=== PATIENT | female | born 1965 | race Caucasian/White ===

== ENCOUNTER → 2016-05-20 | Outpatient (CLI) | payer OTHER ==
[~2016-05-20] MED LIST: /PANT40TA OR; /SUCR1TA OR; ALEV220C2 PO; ALEV220T26 PO; ALLE25CA PO; AMIT10TA2 PO; BENA25CA2 PO; D31000TA PO; HYDR-3713 PO; LISI10TA4 PO; LISI5TAB PO; METO5TAB2 OR; MOBI15TA PO; NAPR250T; POTA99TA PO; ROBA750T4 PO; TIZA4CAP3 PO; VICODINES TAB OR; VITA30004 PO; ZESTRIL PO; mobic PO
--- NOTE | 2016-05-20 13:13 | REP ---
THORACIC SPINE: AP and lateral views of the thoracis spine performed. There is no compression fracture. There is normal thoracic kyphosis. There is mild diffuse spurring and disc space narrowing with subchondral sclerosis. Metallic screws are seen at the L3 level. There is mild curvature toward the right. Metallic plate and screws are seen in the lower cervical spine. IMPRESSION: Diffuse degenerative changes without fracture or dislocation. Signed by Mehdi Ochoa MD 05/20/2016 08:00 P
== END ==
LOC: M WUC 12:14
PROVIDERS: ATTEND Physician Assistant
DX: M51.36 Other intervertebral disc degeneration, lumbar region (principal)

== ENCOUNTER → 2016-06-05 | Outpatient (REF) | payer OTHER ==
[2016-06-05 12:29] LABS: BASO % 0.4 % (0.0-1.0); EOS # 0.1 K/mm3 (0.0-0.50); EOS % 1.6 % (0.0-3.0); LARGE UNSTAINED CELL # 0.1 K/mm3 (0.0-0.4); LARGE UNSTAINED CELL % 1.2 % (0.0-4.0); LYMPH % 21.4 % (24.0-44.0); MEAN CORPUSCULAR HEMOGLOBIN 28.5 pg (27.0-33.0); MEAN CORPUSCULAR HGB CONC 33.7 g/dl (32.0-36.5); MEAN CORPUSCULAR VOLUME 84.5 fl (80.0-96.0); MONO # 0.2 K/mm3 (0.0-0.8); MONO % 4.1 % (0.0-5.0); NEUTROPHILS # 3.4 K/mm3 (1.8-7.7); NEUTROPHILS % 71.3 % (36.0-66.0); PLATELET COUNT, AUTOMATED 221 k/mm3 (150-450); RED CELL DISTRIBUTION WIDTH 13.1 % (11.5-14.5); WHITE BLOOD COUNT 4.8 K/mm3 (4.0-10.0)
[2016-06-05 12:47] LABS: ALBUMIN 3.8 GM/DL (3.2-5.2); ALBUMIN/GLOBULIN RATIO 1.23 (1.00-1.93); ALKALINE PHOSPHATASE 153 U/L (45-117); ALT/SGPT 47 U/L (12-78); ANION GAP 10 MEQ/L (8-16); AST/SGOT 28 U/L (15-37); BILIRUBIN,TOTAL 0.6 MG/DL (0.2-1.0); BLOOD UREA NITROGEN 18 MG/DL (7-18); CARBON DIOXIDE LEVEL 25 MEQ/L (21-32); CHLORIDE LEVEL 108 MEQ/L (98-107); CREATININE FOR GFR 0.77 MG/DL (0.55-1.02); FERRITIN 55 NG/ML (8-252); GLOMERULAR FILTRATION RATE > 60.0 (>51); GLUCOSE, FASTING 86 MG/DL (70-105); PERCENT SATURATION 19.9 % (13.2-37.4); POTASSIUM SERUM 4.2 MEQ/L (3.5-5.1); SODIUM LEVEL 143 MEQ/L (136-145); TOTAL IRON BINDING CAPACITY 372 UG/DL (250-450); TOTAL PROTEIN 6.9 GM/DL (6.4-8.2)
[2016-06-05 13:12] LABS: VITAMIN B12 LEVEL 1450 PG/ML (247-911)
== END ==
LOC: M LABDRAW1 11:34
PROVIDERS: ATTEND Family Medicine
DX: E53.8 Deficiency of other specified B group vitamins (principal); E55.9 Vitamin D deficiency, unspecified

== ENCOUNTER → 2016-10-24 | Outpatient (REF) | payer OTHER ==
[2016-10-24 11:45] LABS: ALBUMIN 3.7 GM/DL (3.2-5.2); ALBUMIN/GLOBULIN RATIO 1.32 (1.00-1.93); ALKALINE PHOSPHATASE 114 U/L (45-117); ALT/SGPT 39 U/L (12-78); ANION GAP 8 MEQ/L (8-16); AST/SGOT 23 U/L (15-37); BILIRUBIN,TOTAL 0.5 MG/DL (0.2-1.0); BLOOD UREA NITROGEN 17 MG/DL (7-18); CARBON DIOXIDE LEVEL 24 MEQ/L (21-32); CHLORIDE LEVEL 112 MEQ/L (98-107); CHOLESTEROL LEVEL 223 MG/DL (<200); CREATININE FOR GFR 0.72 MG/DL (0.55-1.02); FREE T4 1.17 NG/DL (0.76-1.46); GAMMA GLUTAMYLTRANSPEPTIDASE 89 U/L (5-55); GLOMERULAR FILTRATION RATE > 60.0 (>51); GLUCOSE, FASTING 80 MG/DL (70-105); SODIUM LEVEL 144 MEQ/L (136-145); TOTAL PROTEIN 6.5 GM/DL (6.4-8.2); TRIGLYCERIDES LEVEL 79 MG/DL (<150)
== END ==
LOC: M SFHCPLAZ 09:37
PROVIDERS: ATTEND Family Medicine
DX: E78.2 Mixed hyperlipidemia (principal); I10 Essential (primary) hypertension

== ENCOUNTER → 2016-11-01 | Outpatient (CLI) | payer OTHER ==
--- NOTE | 2016-11-01 15:13 | REPMRS ---
Patient History The patient states she has not had a clinical breast exam in over a year. Patient is postmenopausal. No known family history of cancer. Digital Woman Screen Mammo: November 01, 2016 - Exam #: [id number] Bilateral CC and MLO view(s) were taken. Technologist: Cheyenne Reno, Technologist Prior study comparison: September 24, 2015, digital woman screen mammo performed at [facility]. May 06, 2014, digital woman screen mammo performed at [facility]. FINDINGS: There are scattered fibroglandular densities. There has been no change in the appearance of the mammogram from the prior studies. There is a mild amount of residual fibroglandular tissue which is fairly symmetric. There is no interval development of dominant mass, architectural distortion, or clustered microcalcification suggestive of malignancy. ASSESSMENT: BI-RADS/ACR category 1 mammogram. Negative. Recommendation Routine screening mammogram in 1 year (for women over age 40). This mammogram was interpreted with the aid of an FDA-approved computer-aided dectection system. Electronically Signed By: Mehdi Ochoa MD 11/01/16 0183
== END ==
LOC: M WHC 12:51
PROVIDERS: ATTEND Family Medicine
DX: Z12.31 Encounter for screening mammogram for malignant neoplasm of breast (principal); Z78.0 Asymptomatic menopausal state

== ENCOUNTER → 2017-02-22 | Outpatient (REF) | payer OTHER ==
[2017-02-22 12:39] LABS: BASO % 0.4 % (0.0-1.0); EOS % 0.6 % (0.0-3.0); IMMATURE GRANULOCYTE % 0.3 % (0-0); LYMPH # 1.3 10^3/uL (1.5-4.5); LYMPH % 18.5 % (24.0-44.0); MEAN CORPUSCULAR HEMOGLOBIN 28.7 pg (27.0-33.0); MEAN CORPUSCULAR HGB CONC 33.1 g/dl (32.0-36.5); MEAN CORPUSCULAR VOLUME 86.7 fl (80.0-96.0); MONO # 0.4 10^3/uL (0.0-0.8); MONO % 5.4 % (0.0-5.0); NEUTROPHILS # 5.2 10^3/uL (1.8-7.7); NEUTROPHILS % 74.8 % (36.0-66.0); PLATELET COUNT, AUTOMATED 233 10^3/uL (150-450); RED CELL DISTRIBUTION WIDTH 12.8 % (11.5-14.5)
[2017-02-22 13:05] LABS: ALBUMIN/GLOBULIN RATIO 1.38 (1.00-1.93); ALKALINE PHOSPHATASE 123 U/L (45-117); ALT/SGPT 47 U/L (12-78); ANION GAP 10 MEQ/L (8-16); AST/SGOT 20 U/L (7-37); BILIRUBIN,TOTAL 0.6 MG/DL (0.2-1.0); BLOOD UREA NITROGEN 15 MG/DL (7-18); CALCIUM LEVEL 9.1 MG/DL (8.5-10.1); CARBON DIOXIDE LEVEL 22 MEQ/L (21-32); CHLORIDE LEVEL 112 MEQ/L (98-107); CREATININE FOR GFR 0.87 MG/DL (0.55-1.02); FERRITIN 57 NG/ML (8-252); GLOMERULAR FILTRATION RATE > 60.0 (>51); GLUCOSE, FASTING 95 MG/DL (70-105); MAGNESIUM LEVEL 2.1 MG/DL (1.8-2.4); PERCENT SATURATION 20.3 % (13.2-45.0); POTASSIUM SERUM 3.9 MEQ/L (3.5-5.1); SODIUM LEVEL 144 MEQ/L (136-145); TOTAL IRON BINDING CAPACITY 344 UG/DL (250-450); TOTAL PROTEIN 6.9 GM/DL (6.4-8.2)
== END ==
LOC: M SFHCPLAZ 08:53
PROVIDERS: ATTEND Family Medicine
DX: E53.8 Deficiency of other specified B group vitamins (principal); I10 Essential (primary) hypertension; E78.2 Mixed hyperlipidemia

== ENCOUNTER → 2017-06-05 | Outpatient (CLI) | payer OTHER ==
[2017-06-05 09:00] LABS: BASO % 0.7 % (0.0-1.0); EOS # 0.1 10^3/uL (0.0-0.50); EOS % 1.7 % (0.0-3.0); HEMATOCRIT 41.8 % (36.0-47.0); IMMATURE GRANULOCYTE % 0.2 % (0-3.0); LYMPH # 1.2 10^3/uL (1.5-4.5); LYMPH % 21.2 % (24.0-44.0); MEAN CORPUSCULAR HEMOGLOBIN 28.8 pg (27.0-33.0); MEAN CORPUSCULAR HGB CONC 33.5 g/dl (32.0-36.5); MONO # 0.4 10^3/uL (0.0-0.8); MONO % 7.1 % (0.0-5.0); NEUTROPHILS % 69.1 % (36.0-66.0); PLATELET COUNT, AUTOMATED 206 10^3/uL (150-450); RED BLOOD COUNT 4.86 10^6/uL (4.00-5.40); RED CELL DISTRIBUTION WIDTH 13.1 % (11.5-14.5); WHITE BLOOD COUNT 5.8 10^3/uL (4.0-10.0)
[2017-06-05 09:32] LABS: ANION GAP 7 MEQ/L (8-16); BLOOD UREA NITROGEN 14 MG/DL (7-18); CALCIUM LEVEL 9.2 MG/DL (8.5-10.1); CARBON DIOXIDE LEVEL 28 MEQ/L (21-32); CHLORIDE LEVEL 108 MEQ/L (98-107); CREATININE FOR GFR 0.72 MG/DL (0.55-1.30); GLOMERULAR FILTRATION RATE > 60.0 (>51); GLUCOSE, FASTING 84 MG/DL (70-100); POTASSIUM SERUM 4.1 MEQ/L (3.5-5.1); SODIUM LEVEL 143 MEQ/L (136-145)
== END ==
LOC: M LAB 08:14
DX: M72.2 Plantar fascial fibromatosis (principal); M79.672 Pain in left foot
CPT/HCPCS: 93005

== ENCOUNTER 2017-06-22 10:18 | Day surgery (SDC) | payer OTHER ==
[2017-06-22] MEDS: LR 1,000 ML IV (11:12)
[2017-06-22] MEDS ORDERED: MIDAZOLAM INJ 2 MG/2 ML VIAL (J2250) As Ordered (12:49)
[2017-06-22] MEDS ORDERED: fentaNYL 100 MCG/2 ML INJECTION (J3010) As Ordered (13:04)
[2017-06-22] MEDS ORDERED: PROPOFOL 200 MG/20 ML VIAL As Ordered (13:06)
[2017-06-22] MEDS ORDERED: LIDOCAINE 2% INJ 100 MG/5 ML SDV (FOR ANES.) As Ordered (13:06)
[2017-06-22] MEDS: LIDOCAINE 2% MDV 20 ML VIAL As Ordered (13:24)
[2017-06-22] MEDS: BACITRACIN PWD 50,000 UNITS VIAL As Ordered (13:42)
[2017-06-22] MEDS: LIDOCAINE 1% SDV INJ 30 ML VIAL As Ordered (13:43)
[2017-06-22] MEDS: NEOSPORIN GU IRRIG 20 ML VIAL As Ordered (13:43)
[2017-06-22] MEDS: BUPIVACAINE HCL 0.5% 30 ML VIAL As Ordered (13:43)
[2017-06-22] MEDS: dexameTHASONE 4 MG/ML 1ML VIAL (J1100) As Ordered (13:44)
[2017-06-22] MEDS ORDERED: KETOROLAC 60 MG/2 ML VIAL (J1885) As Ordered (13:48)
== END 2017-06-22 16:10 | disposition home or self-care (01) ==
LOC: M SDC 10:18
DX: M72.2 Plantar fascial fibromatosis (principal); I10 Essential (primary) hypertension; K21.9 Gastro-esophageal reflux disease without esophagitis; M51.9 Unspecified thoracic, thoracolumbar and lumbosacral intervertebral disc disorder; M54.9 Dorsalgia, unspecified; J30.9 Allergic rhinitis, unspecified; Z88.5 Allergy status to narcotic agent; Z79.899 Other long term (current) drug therapy; Z78.0 Asymptomatic menopausal state
CPT/HCPCS: 29893

== ENCOUNTER → 2017-07-17 | Outpatient (REF) | payer OTHER ==
[2017-07-17 12:41] LABS: BASO % 0.7 % (0.0-1.0); EOS # 0.1 10^3/uL (0.0-0.50); HEMATOCRIT 42.2 % (36.0-47.0); IMMATURE GRANULOCYTE % 0.2 % (0-3.0); LYMPH # 1.4 10^3/uL (1.5-4.5); LYMPH % 24.6 % (24.0-44.0); MEAN CORPUSCULAR HEMOGLOBIN 29.1 pg (27.0-33.0); MEAN CORPUSCULAR HGB CONC 33.2 g/dl (32.0-36.5); MEAN CORPUSCULAR VOLUME 87.7 fl (80.0-96.0); MONO # 0.4 10^3/uL (0.0-0.8); MONO % 6.5 % (0.0-5.0); NEUTROPHILS # 3.7 10^3/uL (1.8-7.7); PLATELET COUNT, AUTOMATED 223 10^3/uL (150-450); RED BLOOD COUNT 4.81 10^6/uL (4.00-5.40); RED CELL DISTRIBUTION WIDTH 12.6 % (11.5-14.5); WHITE BLOOD COUNT 5.6 10^3/uL (4.0-10.0)
[2017-07-17 12:42] LABS: HEMATOCRIT 42.2 % (36.0-47.0)
[2017-07-17 13:23] LABS: TOTAL 25(OH) VITAMIN D 37.6 NG/ML (30.0-100.0)
[2017-07-17 13:24] LABS: PTH INTACT 36.9 PG/ML (18.5-88.0)
[2017-07-17 13:24] LABS: VITAMIN B12 LEVEL 942 PG/ML (247-911)
[2017-07-20 11:06] LABS: PRETREATED FOLATE FOR RBCFOL 7.8 NG/ML; RBC FOLATE 388.2 NG/ML (280-791)
== END ==
LOC: M SFHCPLAZ 08:28
DX: E53.8 Deficiency of other specified B group vitamins (principal); E55.9 Vitamin D deficiency, unspecified
CPT/HCPCS: 82607

== ENCOUNTER → 2017-11-02 | Outpatient (CLI) | payer OTHER | LOC: M WHC 13:56 | DX: Z12.31 Encounter for screening mammogram for malignant neoplasm of breast (principal); E28.39 Other primary ovarian failure | CPT/HCPCS: 77067 ==

== ENCOUNTER 2018-03-05 09:41 | Emergency (ER) | payer OTHER ==
[2018-03-05] MEDS: PERCOCET 5MG/325MG TAB PO (10:44)
== END 2018-03-05 13:24 | disposition home or self-care (01) ==
LOC: M ED 09:41
DX: S30.0XXA Contusion of lower back and pelvis, initial encounter (principal); W00.9XXA Unspecified fall due to ice and snow, initial encounter; Y92.9 Unspecified place or not applicable; Y93.9 Activity, unspecified; Y99.9 Unspecified external cause status; M51.9 Unspecified thoracic, thoracolumbar and lumbosacral intervertebral disc disorder; J30.2 Other seasonal allergic rhinitis; Z79.899 Other long term (current) drug therapy; Z88.5 Allergy status to narcotic agent
CPT/HCPCS: 72128

== ENCOUNTER → 2018-03-28 | Outpatient (REF) | payer OTHER ==
[~2018-03-28] MED LIST changes: +FLON1SPR; +PERC5TAB12 PO; +TIZA2TA; +TIZA4CAP PO; -TIZA4CAP3 PO; +TOPI25TA10; +TRAM50TA2 PO; +VITA100067 PO; +VITA100072 PO
[2018-03-28 11:53] LABS: BASO % 0.6 % (0.0-1.0); EOS # 0.1 10^3/uL (0.0-0.50); EOS % 1.2 % (0.0-3.0); HEMATOCRIT 42.7 % (36.0-47.0); HEMOGLOBIN 14.3 g/dl (12.0-15.5); LYMPH # 1.5 10^3/uL (1.5-4.5); LYMPH % 22.9 % (24.0-44.0); MEAN CORPUSCULAR HEMOGLOBIN 28.7 pg (27.0-33.0); MEAN CORPUSCULAR HGB CONC 33.5 g/dl (32.0-36.5); MEAN CORPUSCULAR VOLUME 85.6 fl (80.0-96.0); MONO # 0.3 10^3/uL (0.0-0.8); NEUTROPHILS # 4.7 10^3/uL (1.8-7.7); PLATELET COUNT, AUTOMATED 244 10^3/uL (150-450); RED BLOOD COUNT 4.99 10^6/uL (4.00-5.40); WHITE BLOOD COUNT 6.6 10^3/uL (4.0-10.0)
[2018-03-28 12:23] LABS: ALBUMIN 3.9 GM/DL (3.2-5.2); ALT/SGPT 28 U/L (12-78); BILIRUBIN,TOTAL 0.5 MG/DL (0.2-1.0); BLOOD UREA NITROGEN 15 MG/DL (7-18); C REACTIVE PROTEIN QUANTITATIV 0.59 MG/DL (0.00-0.30); CALCIUM LEVEL 9.2 MG/DL (8.5-10.1); CARBON DIOXIDE LEVEL 25 MEQ/L (21-32); CHLORIDE LEVEL 109 MEQ/L (98-107); CHOLESTEROL LEVEL 221 MG/DL (<200); CHOLESTEROL RISK RATIO 2.728 (<5); CREATININE FOR GFR 0.76 MG/DL (0.55-1.30); GLOMERULAR FILTRATION RATE > 60.0 (>51); GLUCOSE, FASTING 83 MG/DL (70-100); HDL CHOLESTEROL 81 MG/DL (>40); LDL CHOLESTEROL 122 MG/DL (<100); MAGNESIUM LEVEL 2.7 MG/DL (1.8-2.4); NON-HDL-C 140 MG/DL; POTASSIUM SERUM 4.6 MEQ/L (3.5-5.1); SODIUM LEVEL 141 MEQ/L (136-145); TOTAL PROTEIN 6.9 GM/DL (6.4-8.2); TRIGLYCERIDES LEVEL 90 MG/DL (<150)
== END ==
LOC: M SFHCPLAZ 08:21
PROVIDERS: ATTEND Family Medicine
DX: E53.8 Deficiency of other specified B group vitamins (principal); I10 Essential (primary) hypertension; E78.2 Mixed hyperlipidemia

== ENCOUNTER → 2018-03-28 | Outpatient (CLI) | payer OTHER ==
--- NOTE | 2018-03-29 03:30 | REP ---
Clinical: Right-sided chest/rib pain . Technique: Frontal view of the chest with multiple views of the right hemithorax. Findings: Frontal view of the chest demonstrates no acute cardiopulmonary process. Multiple views of the right hemithorax demonstrates no obvious acute rib fracture or pathology. Impression: Normal right rib series Electronically Signed by Kirit Degroot MD 03/29/2018 03:22 A
== END ==
LOC: M SMT 10:53
PROVIDERS: ATTEND Physician Assistant Medical
DX: R07.81 Pleurodynia (principal)

== ENCOUNTER → 2018-04-04 | Outpatient (CLI) | payer OTHER ==
--- NOTE | 2018-04-04 18:39 | REP ---
LEFT SHOULDER, THREE VIEWS: HISTORY: Supraspinatus tendon tear. There is no acute fracture or dislocation. The joint spaces are normal in appearance. IMPRESSION: There is no acute fracture or dislocation. Electronically Signed by Perry Grey MD 04/04/2018 06:46 P
--- NOTE | 2018-04-04 18:43 | REP ---
LEFT ELBOW, FOUR VIEWS: HISTORY: Supraspinatus tendon tear. There is no acute fracture or dislocation. The joint space is normal in appearance. IMPRESSION: There is no acute fracture or dislocation. Electronically Signed by Perry Grey MD 04/04/2018 06:46 P
--- NOTE | 2018-04-04 18:46 | REP ---
CERVICAL SPINE, SEVEN VIEWS: HISTORY: Left supraspinatus tendon tear. The patient is status post C5 to C7 anterior spinal fusion. A fixation plate and bone graft material are present. There is no acute fracture or subluxation. The C7-T1 intervertebral disc is decreased in height consistent with disc degeneration. The neural foramina are patent. IMPRESSION: 1. The patient is status post C5 to C7 anterior spinal fusion. 2. Degenerative change as described above. Electronically Signed by Perry Grey MD 04/04/2018 06:53 P
--- NOTE | 2018-04-04 18:48 | REP ---
LEFT HUMERUS, TWO VIEWS: HISTORY: Left supraspinatus tendon tear. There is no acute fracture or dislocation. The joint spaces are normal in appearance. IMPRESSION: There is no acute fracture or dislocation. Electronically Signed by Perry Grey MD 04/04/2018 06:53 P
== END ==
LOC: M RAD 16:59
PROVIDERS: ATTEND Family Medicine
DX: S46.812A Strain of other muscles, fascia and tendons at shoulder and upper arm level, left arm, initial encounter (principal); X58.XXXA Exposure to other specified factors, initial encounter; Y92.89 Other specified places as the place of occurrence of the external cause; Y93.9 Activity, unspecified; Y99.9 Unspecified external cause status

== ENCOUNTER 2018-04-24 07:26 | Emergency (ER) | payer OTHER ==
[~2018-04-24] VITALS: Ht 167.6 cm; Wt 86.4 kg
[2018-04-24] MEDS ORDERED: ACET1TAB55 PO (07:34)
[2018-04-24] MEDS ORDERED: IPRATROPIUM 0.5MG/ALBUTEROL 2.5MG INH SOL UD 3ML (DUONEB)(J7620) NEB ONE (08:00)
--- NOTE | 2018-04-24 08:35 | REP ---
Chest x-ray: Two views. History: Productive cough. Comparison chest x-ray is from August 06, 2013. Findings: The patient has undergone cervical spine discectomy and fusion plating. The lungs are symmetrically aerated and no infiltrate is seen. There is a linear density overlying the heart on the lateral radiograph consistent with some fissural thickening or plate-like atelectasis. There is also fusion hardware in the upper lumbar spine. The heart is not enlarged. Pleural angles are sharp. The aorta is calcific and a little tortuous. Impression: Fissural thickening versus plate-like atelectasis in one of the lower lobe seen on the lateral radiograph. Otherwise no active cardiopulmonary disease. Status post cervical and lumbar spine fusion hardware. Electronically Signed by Cayden Azevedo MD 04/24/2018 06:41 P
[2018-04-24 09:11] LABS: INFLUENZA A AMPLIFICATION POSITIVE (NEGATIVE); INFLUENZA B AMPLIFICATION NEGATIVE (NEGATIVE)
[2018-04-24] MEDS ORDERED: PROAAER10 INH (09:20)
[2018-04-24 09:31] VITALS: BP 139/83
== END 2018-04-24 09:32 | disposition home or self-care (01) ==
LOC: M ED 07:26
DX: J09.X2 Influenza due to identified novel influenza A virus with other respiratory manifestations (principal); I10 Essential (primary) hypertension

== ENCOUNTER → 2018-04-26 | Outpatient (REF) | payer OTHER ==
[~2018-04-26] MED LIST changes: +ACET1TAB55 PO; +PROAAER10 INH
[2018-04-26 15:13] LABS: ALBUMIN 3.9 GM/DL (3.2-5.2); ALT/SGPT 35 U/L (12-78); BILIRUBIN,TOTAL 0.6 MG/DL (0.2-1.0); BLOOD UREA NITROGEN 13 MG/DL (7-18); CALCIUM LEVEL 8.8 MG/DL (8.5-10.1); CARBON DIOXIDE LEVEL 28 MEQ/L (21-32); CHLORIDE LEVEL 105 MEQ/L (98-107); CREATININE FOR GFR 0.74 MG/DL (0.55-1.30); GLOMERULAR FILTRATION RATE > 60.0 (>51); GLUCOSE, FASTING 84 MG/DL (70-100); POTASSIUM SERUM 3.7 MEQ/L (3.5-5.1); SODIUM LEVEL 139 MEQ/L (136-145); TOTAL PROTEIN 7.5 GM/DL (6.4-8.2)
[2018-04-26 16:04] LABS: BASO # 0.1 10^3/uL (0.0-0.2); BASO % 1.1 % (0.0-1.0); EOS % 0.2 % (0.0-3.0); HEMATOCRIT 47.9 % (36.0-47.0); HEMOGLOBIN 16.3 g/dl (12.0-15.5); LYMPH # 1.1 10^3/uL (1.5-4.5); LYMPH % 24.5 % (24.0-44.0); MEAN CORPUSCULAR HEMOGLOBIN 28.8 pg (27.0-33.0); MEAN CORPUSCULAR VOLUME 84.8 fl (80.0-96.0); MONO # 0.5 10^3/uL (0.0-0.8); MONO % 10.7 % (0.0-5.0); NEUTROPHILS # 2.8 10^3/uL (1.8-7.7); NEUTROPHILS % 63.3 % (36.0-66.0); PLATELET COUNT, AUTOMATED 198 10^3/uL (150-450); RED BLOOD COUNT 5.65 10^6/uL (4.00-5.40); WHITE BLOOD COUNT 4.5 10^3/uL (4.0-10.0)
== END ==
LOC: M SFHCPLAZ 13:42
PROVIDERS: ATTEND Nurse Practitioner Family
DX: J18.9 Pneumonia, unspecified organism (principal)

== ENCOUNTER → 2018-04-26 | Outpatient (CLI) | payer OTHER ==
--- NOTE | 2018-04-26 14:54 | REP ---
Chest two views HISTORY: Pneumonia Comparison: 04/24/2018 l Linear densities are present in the left lower lobe consistent with atelectasis. Again noted is fissural thickening in the lateral radiograph. The right lung is clear. The heart is normal in size. The pulmonary vasculature is normal in appearance. The bony structure is intact. IMPRESSION: Left lower lobe atelectasis. Electronically Signed by Perry Grey MD 04/26/2018 02:45 P
== END ==
LOC: M SMT 14:08
PROVIDERS: ATTEND Nurse Practitioner Family
DX: J18.9 Pneumonia, unspecified organism (principal)

== ENCOUNTER → 2018-07-08 | Outpatient (CLI) | payer OTHER ==
[~2018-07-08] MED LIST changes: -/PANT40TA OR; -/SUCR1TA OR; +PROT1TAB2 OR; +SUCR1TAB56 OR; +VITA100018 PO; -VITA100072 PO
--- NOTE | 2018-07-08 10:40 | REP ---
Right hip: Two views. History: Right hip contusion. Findings: AP and frog-leg views of the right hip show some mild acetabular spurring. There is also mild spurring at the greater trochanter. This may reflect tendonitis. There is no evidence of fracture or subluxation. Impression: No traumatic abnormality noted. Mild spurring. Electronically Signed by Cayden Azevedo MD 07/08/2018 11:40 A
== END ==
LOC: M WUC 10:12
PROVIDERS: ATTEND Physician Assistant
DX: S70.01XA Contusion of right hip, initial encounter (principal); M25.751 Osteophyte, right hip; Y92.9 Unspecified place or not applicable; Y93.9 Activity, unspecified; Y99.9 Unspecified external cause status; X58.XXXA Exposure to other specified factors, initial encounter

== ENCOUNTER → 2018-08-27 | Outpatient (REF) | payer OTHER ==
[2018-08-27 11:08] LABS: ALBUMIN 3.6 GM/DL (3.2-5.2); ALT/SGPT 29 U/L (12-78); BILIRUBIN,TOTAL 0.6 MG/DL (0.2-1.0); BLOOD UREA NITROGEN 16 MG/DL (7-18); CALCIUM LEVEL 8.7 MG/DL (8.5-10.1); CARBON DIOXIDE LEVEL 27 MEQ/L (21-32); CHLORIDE LEVEL 108 MEQ/L (98-107); CREATININE FOR GFR 0.74 MG/DL (0.55-1.30); FREE T4 1.11 NG/DL (0.76-1.46); GLOMERULAR FILTRATION RATE > 60.0 (>51); GLUCOSE, FASTING 88 MG/DL (70-100); POTASSIUM SERUM 4.4 MEQ/L (3.5-5.1); PTH INTACT 31.5 PG/ML (18.5-88.0); SODIUM LEVEL 141 MEQ/L (136-145); THYROID STIMULATING HORMONE 0.724 uIU/ML (0.358-3.740); TOTAL 25(OH) VITAMIN D 50.2 NG/ML (30.0-100.0); TOTAL PROTEIN 6.5 GM/DL (6.4-8.2)
[2018-08-27 14:50] LABS: HEMOGLOBIN A1c 5.4 %
== END ==
LOC: M SFHCPLAZ 08:11
PROVIDERS: ATTEND Family Medicine
DX: M85.89 Other specified disorders of bone density and structure, multiple sites (principal); E55.9 Vitamin D deficiency, unspecified; E78.2 Mixed hyperlipidemia

== ENCOUNTER → 2018-11-01 | Outpatient (CLI) | payer OTHER ==
--- NOTE | 2018-11-01 12:16 | REPMRS ---
Patient History The patient states she has not had a clinical breast exam in over a year. No known family history of cancer. Digital Woman Screen Mammo: November 01, 2018 - Exam #: [id number] Bilateral CC and MLO view(s) were taken. Technologist: Leonila Roblero Technologist Prior study comparison: November 02, 2017, bilateral digital woman screen mammo performed at [facility]. November 01, 2016, digital woman screen mammo performed at [facility]. September 24, 2015, digital woman screen mammo performed at [facility]. FINDINGS: There are scattered fibroglandular densities. There has been no change in the appearance of the mammogram from the prior studies. There is a mild amount of scattered fibroglandular density which is fairly symmetric. There is no interval development of dominant mass, architectural distortion, or grouped microcalcification suggestive of malignancy. 3-D tomosynthesis shows no additional findings. Assessment: BI-RADS/ACR category 1 mammogram. Negative Mammogram. Recommendation Routine screening mammogram of both breasts in 1 year (for women over age 40). This patient's Lifetime Breast Cancer Risk is estimated at 7.4 %. This mammogram was interpreted with the aid of an FDA-approved computer-aided dectection system. Electronically Signed By: Ramin Azevedo MD 11/01/18 1664
== END ==
LOC: M WHC 10:54
PROVIDERS: ATTEND Family Medicine
DX: Z12.31 Encounter for screening mammogram for malignant neoplasm of breast (principal)

== ENCOUNTER → 2019-02-11 | Outpatient (REF) | payer OTHER ==
[2019-02-11 10:05] LABS: BASO % 0.6 % (0.0-1.0); EOS # 0.1 10^3/uL (0.0-0.5); EOS % 1.4 % (0.0-3.0); HEMATOCRIT 43.7 % (36.0-47.0); HEMOGLOBIN 14.3 g/dl (12.0-15.5); LYMPH # 1.3 10^3/uL (1.5-5.0); LYMPH % 24.8 % (24.0-44.0); MEAN CORPUSCULAR HEMOGLOBIN 29.2 pg (27.0-33.0); MEAN CORPUSCULAR HGB CONC 32.7 g/dl (32.0-36.5); MEAN CORPUSCULAR VOLUME 89.2 fl (80.0-96.0); MONO # 0.3 10^3/uL (0.0-0.8); MONO % 6.2 % (0.0-5.0); NEUTROPHILS # 3.4 10^3/uL (1.5-8.5); NEUTROPHILS % 66.2 % (36.0-66.0); PLATELET COUNT, AUTOMATED 221 10^3/uL (150-450); WHITE BLOOD COUNT 5.1 10^3/uL (4.0-10.0)
[2019-02-11 10:11] LABS: ALBUMIN 3.9 GM/DL (3.2-5.2); ALT/SGPT 48 U/L (12-78); BILIRUBIN,TOTAL 0.6 MG/DL (0.2-1.0); BLOOD UREA NITROGEN 12 MG/DL (7-18); CALCIUM LEVEL 9.1 MG/DL (8.5-10.1); CARBON DIOXIDE LEVEL 29 MEQ/L (21-32); CHLORIDE LEVEL 109 MEQ/L (98-107); CREATININE FOR GFR 0.79 MG/DL (0.55-1.30); GLOMERULAR FILTRATION RATE > 60.0 (>51); GLUCOSE, FASTING 92 MG/DL (70-100); POTASSIUM SERUM 4.3 MEQ/L (3.5-5.1); SODIUM LEVEL 141 MEQ/L (136-145); TOTAL PROTEIN 6.9 GM/DL (6.4-8.2)
== END ==
LOC: M SFHCPLAZ 08:14
PROVIDERS: ATTEND Family Medicine
DX: I10 Essential (primary) hypertension (principal); E66.3 Overweight

== ENCOUNTER → 2019-03-06 | Outpatient (CLI) | payer OTHER ==
--- NOTE | 2019-03-07 06:58 | ECGEPIP ---
[facility] Test Date: 2019-03-06 Pat Name: MELINA KING Department: Room: - Gender: Female Ncr Operator: RF : 1965 Requested By: Jareth Azar Order Number: [id number] Reading MD: Antelmo Rider Measurements Intervals Blair Rate: 71 P: 40 CA: 186 QRS: 8 QRSD: 81 T: 32 QT: 388 QTc: 424 Interpretive Statements Normal sinus rhythm Somewhat low voltages with slow precordial R-wave progression No change from 06/05/17. Electronically Signed on 03-07-2019 6:58:30 EST by Antelmo Rider
== END ==
LOC: M EKG 11:49
PROVIDERS: ATTEND Orthopaedic Surgery
DX: Z01.810 Encounter for preprocedural cardiovascular examination (principal); M75.112 Incomplete rotator cuff tear or rupture of left shoulder, not specified as traumatic; I10 Essential (primary) hypertension

== ENCOUNTER → 2019-06-20 | Outpatient (REF) | payer OTHER ==
[2019-06-20 10:33] LABS: APPEARANCE, URINE CLEAR (CLEAR); BACTERIA, URINE AUTO NEGATIVE (NEGATIVE); BILIRUBIN, URINE AUTO NEGATIVE (NEGATIVE); BLOOD, URINE BLOOD NEGATIVE (NEGATIVE); COLOR, URINE YELLOW (YELLOW); GLUCOSE, URINE (UA) AUTO NEGATIVE (NEGATIVE); KETONE, URINE AUTO NEGATIVE (NEGATIVE); LEUKOCYTE ESTERASE, URINE AUTO NEGATIVE (NEGATIVE); NITRITE, URINE AUTO NEGATIVE (NEGATIVE); PROTEIN, URINE AUTO NEGATIVE (NEGATIVE); RBC, URINE AUTO 0 /HPF (0-3); SPECIFIC GRAVITY URINE AUTO 1.017 (1.002-1.035); SQUAMOUS EPITHELIAL CELL UR AU 0 /HPF (0-6); UROBILINOGEN, URINE AUTO 0.2 mg/dL (0.0-2.0); WBC, URINE AUTO 0 /HPF (0-3)
[2019-06-20 10:37] LABS: HEMATOCRIT 46.3 % (36.0-47.0)
[2019-06-20 10:55] LABS: HEMOGLOBIN A1c 5.5 %
[2019-06-20 11:08] LABS: ALBUMIN 3.9 GM/DL (3.2-5.2); ALT/SGPT 48 U/L (12-78); BILIRUBIN,TOTAL 0.7 MG/DL (0.2-1.0); BLOOD UREA NITROGEN 16 MG/DL (7-18); CALCIUM LEVEL 9.2 MG/DL (8.5-10.1); CARBON DIOXIDE LEVEL 29 MEQ/L (21-32); CHLORIDE LEVEL 108 MEQ/L (98-107); CHOLESTEROL LEVEL 253 MG/DL (<200); CHOLESTEROL RISK RATIO 2.811 (<5); CREATININE FOR GFR 0.73 MG/DL (0.55-1.30); GLOMERULAR FILTRATION RATE > 60.0 (>51); GLUCOSE, FASTING 71 MG/DL (70-100); HDL CHOLESTEROL 90 MG/DL (>40); LDL CHOLESTEROL 143 MG/DL (<100); NON-HDL-C 163 MG/DL; POTASSIUM SERUM 4.3 MEQ/L (3.5-5.1); SODIUM LEVEL 141 MEQ/L (136-145); TOTAL PROTEIN 7.1 GM/DL (6.4-8.2); TRIGLYCERIDES LEVEL 100 MG/DL (<150)
[2019-06-20 11:09] LABS: CREATININE, URINE 85.9 MG/DL; MALB URINE SIEMENS < 5.0 MG/L; MAU/CREAT RATIO 5.8 MCG/MG (0.0-30.0); VITAMIN B12 LEVEL 1547 PG/ML (247-911)
== END ==
LOC: M SFHCPLAZ 08:00
PROVIDERS: ATTEND Family Medicine
DX: E78.2 Mixed hyperlipidemia (principal); I10 Essential (primary) hypertension; E53.8 Deficiency of other specified B group vitamins

== ENCOUNTER 2019-07-28 09:36 | Emergency (ER) | payer OTHER ==
[~2019-07-28] VITALS: Ht 167.6 cm; Wt 90.1 kg
--- NOTE | 2019-07-28 10:30 | REP ---
Head CT without contrast: History: Here in a fall. Comparison study: No comparison study. CT findings: Bone window settings demonstrate an intact bony calvarium. There is no evidence of skull fracture or incidental bony calvarial lesion. The visualized paranasal sinuses appear clear. No intraorbital abnormality is seen. On soft tissue window setting images; the lateral, third, and fourth ventricles are normal in size and position. Ochoa-white differentiation pattern is normal above and below the tentorium. There are is no evidence of intracranial hemorrhage. No mass, edema, infarction, or midline shift is seen. No extra-axial fluid collection is appreciated. Impression: Negative noncontrast head CT. Electronically Signed by Cayden Azevedo MD 07/28/2019 10:21 A
--- NOTE | 2019-07-28 10:34 | REP ---
CT study of the cervical spine without contrast: History: Injury in a fall. Technique: Helical scanning is acquired and overlapping 2 mm high resolution axial images were generated and reviewed at bone and soft tissue window settings. Coronal and sagittal multiplanar re-formations images are generated. CT findings: There is no evidence of cervical spine element fracture. No skull base fracture is seen. Cervical vertebral body heights are preserved. Alignment is normal. There is some straightening of the normal cervical lordosis. The patient is status post ventral discectomy and fusion plating C5-C7. There are osteoarthritic changes at the articulation between the dens and the anterior arch of C1. There are mild hypertrophic osteoarthropathy changes in the facet joints. Most pronounced on the left at C4-5. Facet joints are normally aligned bilaterally at each cervical level on multiplanar re-formations images. There is no evidence of intraspinal or paraspinal hematoma. No extra vertebral abnormality is seen. Incidental note is made of a left lower pole thyroid nodule measuring 1.5 cm. There is an eccentric calcification associated with this nodule. Thyroid sonography could provide additional evaluation. Impression: Mild osteoarthritic changes. Status post ventral discectomy and fusion plating C5-C7. Otherwise negative CT study of the cervical spine without contrast. No fracture seen. 1.5 cm left thyroid nodule is noted at the lower pole. Consider thyroid sonography. Electronically Signed by Cayden Azevedo MD 07/28/2019 10:26 A
[2019-07-28] MEDS ORDERED: IBUPROFEN 800 MG TAB PO ONE (10:45)
[2019-07-28 12:15] VITALS: BP 136/89
--- NOTE | 2019-08-01 11:54 | ED PDOC ---
Post-Departure Follow-Up dr shah faxed formal report of soft tissue thry exam for fu Elizabeth Mccollum MD August 01, 2019 11:54
== END 2019-07-28 12:24 | disposition home or self-care (01) ==
LOC: M ED 09:36
DX: S06.0X0A Concussion without loss of consciousness, initial encounter (principal); E04.1 Nontoxic single thyroid nodule; W19.XXXA Unspecified fall, initial encounter; Y92.098 Other place in other non-institutional residence as the place of occurrence of the external cause; M54.2 Cervicalgia; R20.2 Paresthesia of skin; R20.0 Anesthesia of skin; I10 Essential (primary) hypertension; M50.30 Other cervical disc degeneration, unspecified cervical region; Z98.1 Arthrodesis status; J30.2 Other seasonal allergic rhinitis; Z88.5 Allergy status to narcotic agent; Z79.899 Other long term (current) drug therapy

== ENCOUNTER → 2019-07-30 | Outpatient (CLI) | payer OTHER ==
--- NOTE | 2019-07-30 17:19 | REP ---
THYROID ULTRASOUND: Real-time sonographic evaluation of thyroid performed. Both lobes are mildly enlarged and heterogeneous. Right lobe measures 4.8 x 1.8 x 1.3 cm and left lobe 5.2 x 1.7 x 1.7 cm. Three benign subcentimeter nodules on the right are visualized. Medially in the mid right lobe, there is a hypoechoic nodule 5 x 3 x 6 mm. Another is seen laterally 5 x 3 x 4 mm. There is a 3 mm cyst in the right lower pole. Ill-defined oval mass is seen in the mid left lobe of mixed echogenicity with a few small cystic areas inferiorly. This measures 4.0 x 1.8 x 1.6 cm. There is internal blood flow with Doppler evaluation. This is TI-RADS category 3 and FNA is recommended. There is an adjacent 4 mm cyst in the mid left lobe. In the upper left lobe, a benign complex nodule measures 4 x 2 x 4 mm. There is an oval isoechoic benign nodule in the left mid lobe 1.1 x 0.2 x 0.4 cm. IMPRESSION: Multiple nodules as above with mild enlargement of both lobes of the thyroid. There is a dominant oval heterogeneous nodule in the mid left lobe measuring 4.0 x 1.8 x 1.6 cm. Recommend ultrasound-guided FNA. Electronically Signed by Mehdi Ochoa MD 07/31/2019 12:53 P
== END ==
LOC: M LRY 14:08
PROVIDERS: ATTEND Emergency Medicine
DX: E04.1 Nontoxic single thyroid nodule (principal)

== ENCOUNTER → 2019-08-22 | Outpatient (CLI) | payer OTHER ==
[~2019-08-22] MED LIST changes: +CYAN500T8 PO; +LIDOCAINE 1% MDV 20ML VIAL As Ordered ONE
[2019-08-22 12:55] VITALS: BP 154/98
--- NOTE | 2019-08-25 13:37 | REP ---
ULTRASOUND-GUIDED LEFT THYROID BIOPSY The procedure was performed under the direct supervision of Dr. Ochoa. The risks and benefits of the procedure were explained to the patient and informed consent was obtained. The left thyroid nodule was localized using ultrasound guidance. The skin was prepped and draped in a sterile fashion. 1% lidocaine was used as a local anesthetic. Using ultrasound guidance four fine-needle aspirations were obtained using 25 gauge needles. The patient tolerated the procedure well and there were no immediate complications. After the appropriate amount of monitored convalescence the patient was discharged from the department. Electronically Signed by MIGUEL ANGEL Quijano 08/22/2019 02:38 P Electronically Signed by Mehdi Ochoa MD 08/25/2019 01:27 P
== END ==
LOC: M IRPRO 11:21
PROVIDERS: ATTEND Family Medicine
DX: E04.1 Nontoxic single thyroid nodule (principal)

== ENCOUNTER → 2019-10-07 | Outpatient (CLI) | payer OTHER ==
[~2019-10-07] MED LIST changes: -LIDOCAINE 1% MDV 20ML VIAL As Ordered ONE
--- NOTE | 2019-10-07 14:34 | REP ---
Right elbow series: Five views. History: Contusion. Findings: There is medial and lateral epicondylar spurring. Mild coronoid process spurring is noted as well. There is fragmented spurring at the medial epicondyle and at the coronoid process. There is no evidence of joint effusion. No fractures seen. Impression: Epicondylar and coronoid process spurring. No fracture or or joint effusion seen. Electronically Signed by Cayden Azevedo MD 10/07/2019 02:26 P
== END ==
LOC: M WUC 13:31
PROVIDERS: ATTEND Physician Assistant
DX: S50.01XA Contusion of right elbow, initial encounter (principal); X58.XXXA Exposure to other specified factors, initial encounter; Y92.89 Other specified places as the place of occurrence of the external cause

== ENCOUNTER → 2019-11-03 | Outpatient (CLI) | payer OTHER ==
--- NOTE | 2019-11-19 10:10 | REPMRS ---
Patient History The patient states she has not had a clinical breast exam in over a year. Patient is postmenopausal. No known family history of cancer. No Hormone Replacement Therapy Digital Woman Screen Mammo: November 03, 2019 - Exam #: [id number] Bilateral CC and MLO view(s) were taken. Technologist: Cheyenne Reno, Technologist Prior study comparison: November 01, 2018, bilateral digital woman screen mammo performed at [facility]. November 02, 2017, bilateral digital woman screen mammo performed at [facility]. November 01, 2016, digital woman screen mammo performed at [facility]. FINDINGS: The breast tissue is almost entirely fat. The Volpara volumetric breast density category is: A. There has been no change in the appearance of the mammogram from the prior studies. There is no interval development of dominant mass, architectural distortion, or grouped microcalcification typical of malignancy. 3-D tomosynthesis shows no additional findings. Assessment: BI-RADS/ACR category 1 mammogram. Negative Mammogram. Recommendation Routine screening mammogram of both breasts in 1 year (for women over age 40). This patient's Lifetime Breast Cancer RIsk is estimated at 7.2 %. This mammogram was interpreted with the aid of an FDA-approved computer-aided dectection system. Electronically Signed By: Ramin Azevedo MD 11/19/19 6035
== END ==
LOC: M WHC 06:23
PROVIDERS: ATTEND Family Medicine
DX: Z12.31 Encounter for screening mammogram for malignant neoplasm of breast (principal); Z78.0 Asymptomatic menopausal state

== ENCOUNTER → 2019-11-27 | Outpatient (CLI) | payer OTHER ==
[2019-11-27 12:52] LABS: HEMOGLOBIN A1c 5.2 %
[2019-11-27 12:54] LABS: ALT/SGPT 44 U/L (12-78); BILIRUBIN,TOTAL 0.6 MG/DL (0.2-1.0); BLOOD UREA NITROGEN 19 MG/DL (7-18); C REACTIVE PROTEIN QUANTITATIV 0.66 MG/DL (0.00-0.30); CALCIUM LEVEL 9.5 MG/DL (8.5-10.1); CARBON DIOXIDE LEVEL 28 MEQ/L (21-32); CHLORIDE LEVEL 108 MEQ/L (98-107); CHOLESTEROL LEVEL 261 MG/DL (<200); CHOLESTEROL RISK RATIO 3.144 (<5); CREATININE FOR GFR 0.78 MG/DL (0.55-1.30); FREE T4 1.15 NG/DL (0.76-1.46); GLOMERULAR FILTRATION RATE > 60.0 (>51); GLUCOSE, FASTING 88 MG/DL (70-100); HDL CHOLESTEROL 83 MG/DL (>40); LDL CHOLESTEROL 162 MG/DL (<100); NON-HDL-C 178 MG/DL; POTASSIUM SERUM 4.6 MEQ/L (3.5-5.1); SODIUM LEVEL 140 MEQ/L (136-145); TRIGLYCERIDES LEVEL 82 MG/DL (<150)
== END ==
LOC: M PLALAB 08:11
PROVIDERS: ATTEND Family Medicine
DX: R73.01 Impaired fasting glucose (principal); E78.2 Mixed hyperlipidemia

== ENCOUNTER → 2020-04-02 | Outpatient (CLI) | payer OTHER ==
[~2020-04-02] MED LIST changes: +AUGM875T28 PO; +BENA25CA4 PO; +CYAN500T14 PO; -CYAN500T8 PO; +D31000TA2 PO; +LISI-538 PO; +NORC1TAB7 PO; +TIZA2CAP PO
== END ==
LOC: M LABSMTC 11:27
PROVIDERS: ATTEND Anesthesiology
DX: Z01.812 Encounter for preprocedural laboratory examination (principal); Z20.822 Contact with and (suspected) exposure to COVID-19

== ENCOUNTER 2020-04-07 09:02 | Day surgery (SDC) | payer OTHER ==
[~2020-04-07] VITALS: Ht 170.2 cm; Wt 87.5 kg
[~2020-04-07 09:02] MED LIST changes: -LISI-538 PO; +LISI10TA22 PO; -LISI10TA4 PO; +LISI20TA33 PO; +NS 1,000 ML IV ONE
--- OUTSIDE RECORDS SUMMARY | 2020-04-07 09:07 | CCD ---
Author Author [facility] Organization [facility] Address Unknown Phone Unavailable Care Team Providers Care Wet Mix Operator Name Role Phone Javed Sykes Unavailable PROBLEMS Type Condition ICD9-CM Code [id number] Code Onset Dates Condition S tatus SNOMED Code Notes Problem Eustachian tube dysfunction H69.80 Active 5671 3002 Problem Premature menopause E28.319 Active 070681548 Problem Asthma, mild intermittent J45.20 Active 353186 007 Problem Colon cancer screening Z12.11 Active 235373864 Problem Hypertension I10 Active 45751655 Problem Breast cancer screening Z12.39 Active 94563297 8 Problem Postlaminectomy syndrome, not elsewhere classified M96.1 Active 03088705 Problem Vitamin D deficiency E55.9 Active 09345226 Problem Overweight E66.3 Active 339646158 Problem Recurrent sinusitis J32.9 Active 249424039 Problem Situational depression F43.21 Active 91787354 Problem IFG (impaired fasting glucose) R73.01 Active 3 83051278 Problem Mixed hyperlipidemia E78.2 Active 857960325 Problem Allergic rhinitis J30.9 Active 12225090 Problem Thyroid nodule E04.1 Active 112226352 Problem Sacroiliitis, not elsewhere classified M46.1 A ctive 79632497 Problem B12 deficiency E53.8 Active 889565730 Problem Osteopenia of multiple sites M85.89 Active 312 544624 Problem Traumatic tear of supraspina tus tendon of left shoulder, initial encounter S46.812A Active 825101617 Problem Primary osteoarthritis of both knees M17.0 Act ariella 773134153 Problem Cervical cancer screening Z12.4 Active 232644 001 ALLERGIES Allergen (clinical drug ingredient) Drug/Non Drug Allergy do cumented on EMR Reaction Allergy Type Onset Date Status morphine Morphine Sulfate([facility] Code:[address]-09) Nausea/Vomiti ng Drug Allergy Active Seasonal Allergies Unknown Non Drug Allergy Active ENCOUNTERS from 1965 to 2020-02-25 Encounter Location Date Provider Diagnosis [facility] [address] [place] [address] Feb, 020 Javed Sykes IMMUNIZATIONS Vaccine Route Administration Date Status Influenza (18 yrs & older) Flublok IM Intramuscular Feb 18, 2019 Administered Influenza (6mo & up) Fluzone IM Intramuscular Feb 04, 2016 Ad ministered Influenza (6mo & up) Fluzone IM Intramuscular Jan 27, 2014 Ad ministered Influenza (6mo & up) Fluzone IM Intramuscular Jan 27, 2013 Ad ministered Influenza (6mo & up) Fluzone IM Intramuscular Dec 20, 2009 Ad ministered SOCIAL HISTORY Tobacco Use: Social History Observation Description Date Details (start date - stop date) Never Smoker Sex Assigned At : Social History Observation Description Sex Assigned At Unknown Education: Question Answer Notes Level of Education: Finished High School Language: Question Answer Notes Languages spoken: Ivorian Mandaeism: Question Answer Notes [employer] Sexual Hx: Question Answer Notes Had sex in the last 12 months (vaginal, oral, or anal)? Yes Have you ever had an STD? No with Men only Use protection? No Alcohol Screening: Question Answer Notes Did you have a drink containing alcohol in the past year? Ye s Points 1 Interpretation Negative How often did you have six or more drinks on one occas ion in the past year? Never (0 points) How many drinks did you have on a typica l day when you were drinking in the past year? 1 or 2 (0 points) How often did you have a drink containing alcohol in t he past year? Monthly or less (1 point) BMI Care Goal Follow-Up Question Answer Notes Above Normal BMI Follow-Up Giving encouragement to exercise Tobacco Use: Question Answer Notes Are you a: never smoker REASON FOR REFERRAL No Information VITAL SIGNS No information MEDICATIONS Medication SIG (Take, Route, Frequency, Duration) Notes Start Da te End Date Status Vitamin D (Cholecalciferol) 5000 1 tablet Orally Once a day Active Fluticasone Propionate 50 MCG/DOSE 1 spray in each nos tril Nasally BID for 30 day(s) Active Benadryl Allergy 25 MG 1 tablet Orally Every 6 hours as needed Active Cetirizine-Pseudoephedrine ER 5-120 MG 1 tablet Orally Twice a day for 30 Days Active Lisinopril 20 MG 1 tablet Orally at bedtime for 30 day(s) Active Nebulizer/Tubing/Mouthpiece 1 as directed J10.1 Daily for 7 day( s) Apr, Active Tramadol HCl 50 MG 1 tab Orally BID prn, MDD 2 for 30 Days Active Tylenol PM 1 tab Oral before bedtime Active Vitamin B12 1000 mcg 1 tablet Orally Once a day Active Proventil HFA 108 (90 Base) MCG/ACT 2 puffs as needed Inhalation every 6 hrs prn wheeze for 30 day(s) Active Tizanidine HCl 2 MG 1 to 2 tablet as needed Oral ly before bedtime MDD2 for 30 days Active PROCEDURES No Information RESULTS No Results REASON FOR VISIT Abdominal issues MEDICAL (GENERAL) HISTORY Type Description Date Medical History premature menopause at age 36 Medical History obesity Medical History hypertension Medical History hyperlipidemia 2B Medical History urinary incontinence- stress Medical History EGD 10/2010-hiatal hernia, ga stritis, completed 8W PPI after prolonged NSAID use Medical History 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 Nieto--02/2015 normal zone panel Medical History L plantar fasciitis Surgical History Neck Surgery Screws and Plates 10/2013 Surgical History Lumbar Back Surgery- Rods, plates Surgical History Lumbar Extended Rods, extended plates an d cage 04/2015 Surgical History Left Knee ACL repair, screws 1997 Surgical History plantar fasciatitis -Maxine 06/22/17 Surgical History left shoulder surgery 03/2019 Hospitalization History No Hospitalization history informati on Goals Section No Information Health Concerns No Information MEDICAL EQUIPMENT No Information MENTAL STATUS No Information FUNCTIONAL STATUS No Information ASSESSMENTS No Information PLAN OF TREATMENT Medication Medication Name Sig Start Date Stop Date Vitamin D (Cholecalciferol) 5000 1 tablet Orally Once a day Vitamin B12 1000 mcg 1 tablet Orally Once a day Lisinopril 20 MG 1 tablet Orally at bedtime for 30 day(s) Proventil HFA 108 (90 Base) MCG/ACT 2 puffs as needed Inhalation every 6 hrs prn wheeze for 30 day(s) Benadryl Allergy 25 MG 1 tablet Orally Every 6 hours as needed Tramadol HCl 50 MG 1 tab Orally BID prn, MDD 2 for 30 Days Tizanidine HCl 2 MG 1 to 2 tablet as needed Oral ly before bedtime MDD2 for 30 days Cetirizine-Pseudoephedrine ER 5-120 MG 1 tablet Orally Twice a day for 30 Days Fluticasone Propionate 50 MCG/DOSE 1 spray in each nos tril Nasally BID for 30 day(s) Next Appt Details Provider Name:Javed Sykes, 2021-05-09 0 9:30:00 AM, [address] [place] [address], [id number], Insurance Providers Payer Name Payer Address Payer Phone Insured Name Patient Relati onship to Insured Coverage Start Date Coverage End Date [facility] [address] [facility] [phone] MELINA ELLSWORTH
--- OUTSIDE RECORDS SUMMARY | 2020-04-07 09:07 | CCD | Continuity of Care Document ---
Author Author Brooks HU DO Organization Unknown Address [address] [facility], [address] [place] [address] Phone [phone] Care Team Providers Care Osteologist Name Role Phone Josette Hubbard M.D. AUTM [phone] AUTM Unavailable Javed Sykes M.D. AUTM [phone] Ignacio Goyal AUTM [phone] Carlitos Micthell M.D. AUTM [phone] Problems Description No Information Available Social History Type Date Description Comments Sex Unknown ETOH Use Rarely consumes alcohol Recreational Drug Use Denies Drug Use Tobacco Use Start: Unknown Denies Smoking Allergies, Adverse Reactions, Alerts Active Allergies Reaction Severity Comments Date Morphine 10/09/2019 Contrast Dye Nausea, VOMITING 03/25/2020 Medications Active Medications SIG Qnty Indications Ordering Provide r Date Lisinopril 20mg Tablets 1 tab po qd Unknown Benadryl Allergy 25mg Tablets take 2 tablet 1 hour prior to contrast media. Unknown Vitamin D3 50mcg (1999 Ut) Capsule s 1 by mouth every day Unknown Vitamin B12 1000mcg Tablets ER 1 by mouth every day Unknown Tramadol HCL 50mg Tablets prn Unknown Tizanidine HCL 4mg Capsules 1 tab po qd Unknown Fluticasone Propionate 50mcg/Act Suspension 2 sprays to each nostril daily Unknown History Medications Ciprofloxacin HCL 500mg Tablets 1 tab by mouth twice a day 20tabs Mehdi Hu, 0 - 03/24/2020 Metronidazole 500mg Tablets 1 tab by mouth three times a day as directed 30tabs Mehdi Hu DO 03/04/2020 - 03/24/2020 Immunizations Description No Information Available Vital Signs Date Vital Result Comment 03/25/2020 2:06pm BP Systolic 140 mmHg BP Diastolic 78 mmHg Height 66 inches 5'6" Weight 195.25 lb BMI (Body Mass Index) 31.5 kg/m2 [place] Body Weight 130 lb Weight 88.565 kg BSA (Body Surface Area) 1.98 m2 03/04/2020 9:59am BP Systolic 132 mmHg BP Diastolic 66 mmHg Height 66 inches 5'6" Weight 192.00 lb BMI (Body Mass Index) 31.0 kg/m2 [place] Body Weight 130 lb Weight 87.091 kg BSA (Body Surface Area) 1.97 m2 Results Description No Information Available Procedures Date Code Description Status 10/07/2019 11296 Inject Tendon/Ligament Completed Medical Devices Description No Information Available Encounters Type Date Location Provider Dx Diagnosis Office Visit 03/04/2020 10:00a [facility] Mehdi Hu, K57.32 Dvtrcli of lg int w/o perforation or abs cess w/o bleeding Office Visit 10/07/2019 12:45p [facility] Orth[facility] Clark Hinds MD M77.01 Medial epicondylitis, right elbow Assessments Date Code Description Provider 03/04/2020 K57.32 Diverticulitis of la rge intestine without perforation or abscess without bleeding Mehdi Hu DO 10/07/2019 M77.01 Medial epicondylitis, right elbo w Clark Hinds MD Plan of Treatment 03/04/2020 - Mehdi Hu DO* K57.32 Diverticulitis of large intestine without perforation or abscess without bleeding* Comments:* 55y/o female with acute diverticluitis, and multiple episodes in the past. Since she is still having pain I recommend change to cipro and flagyl, and low fiber diet. If the pain is not improved in 10 days, then I will repeat a CT. If it does improve, then I will see her back in 4 weeks to schedule another colonoscopy to evaluate for the changes in stool caliber. This could be due to benign strictu re from diverticlutis, or some other cause. She understands, and will call me with any changes to pain, or fevers. Follow up 4 weeks. Functional Status Description No Information Available Mental Status Description No Information Available Referrals Description No Information Available
--- OUTSIDE RECORDS SUMMARY | 2020-04-07 09:07 | CCD | Continuity of Care Document ---
Author Author Brooks HAQC Organization Unknown Address [address] [facility] [address] [place] [address] Phone [phone] Care Team Providers Care Visual Merchandise Manager Name Role Phone Shanita Nick MD AUTM [phone] Javed Sykes MD AUTM [phone] Problems Description No Active Problems Social History Type Date Description Comments Sex Unknown ETOH Use Rarely consumes alcohol Tobacco Use Start: Unknown Denies Smoking Smoking Status Reviewed: 01/16/19 Denies Smoking Allergies, Adverse Reactions, Alerts Active Allergies Reaction Severity Comments Date Morphine 02/18/2015 Medications Active Medications SIG Qnty Indications Ordering Provide r Date Medrol 4mg Tablets dose gisell, take as directed on sheet 1tabs M16.11 Eyal Haq MD 03/17/2020 Voltaren 1% Gel apply to effected area 2-3 times daily 100gm Eyal Haq MD 03/17/2020 Mobic 15mg Tablets 1 tab by mouth daily with food 30tabs S40.012A Jareth Raines MD 020 Vitamin C 500mg Capsules 1 by mouth every day Jareth Raines MD 019 Hydrocodone-Acetaminophen 5-325mg Tablets 1-2 tabs by mouth every 4-6 hours as needed pain after surgery(please do not fill until 03/20/19) 40tabs Jareth Raines MD 04/2018 Lisinopril 20mg Tablets 1 by mouth every day Unknown Benadryl Allergy 25mg Capsules 2 by mouth 1 hour prior to procedure Unknown Vitamin B12 1000mcg Tablets ER 1 by mouth every day Unknown Vitamin D3 Maximum Strength 5000Unit Capsules 1 by mouth every day Unknown 000 Tramadol HCL 50mg Tablets 1 every 4-6 hours as needed pain Unknown Tizanidine HCL 4mg Capsules 1 by mouth three times a day Unknown Immunizations Description No Information Available Vital Signs Date Vital Result Comment 03/30/2020 8:34am Body Temperature 96.9 F 03/17/2020 2:25pm Body Temperature 96.9 F Height 67 inches 5'7" Weight 185.00 lb BMI (Body Mass Index) 29.0 kg/m2 Results Description No Information Available Procedures Date Code Description Status 03/30/2020 07601 Inject Tendon Sheath, Ligament C ompleted 03/24/2020 19412 MRI Upper Extremity Any Joint Co mpleted 03/17/2020 55972 X-Ray Hip Unilateral With Pelvis 2-3 Views Completed 03/17/2020 60298 X-Ray Elbow Complete Completed 01/27/2020 98608 X-Ray Shoulder Complete Complete d 01/15/2020 01379 Inject/Drain Joint/Bursa Major C ompleted Medical Devices Description No Information Available Encounters Type Date Location Provider Dx Diagnosis Office Visit 01/27/2020 10:45a Shane Raines MD S4 0.012A Contusion of left shoulder, initial encounter Office Visit 01/15/2020 2:00p Shane Raines MD M2 5.412 Effusion, left shoulder M25.512 Pain in left shoulder Assessments Date Code Description Provider 03/30/2020 M77.01 Medial epicondylitis, right elbo w Lilibeth L. RASHMI Haq 03/30/2020 M77.01 Medial epicondylitis, right elbo w Lilibeth L. RASHMI Haq 03/24/2020 M25.521 Pain in right elbow MRI 03/17/2020 M25.521 Pain in right elbow Lilibeth L. Suzie rodriguez PA-C 03/17/2020 M25.521 Pain in right elbow Lilibeth L. Suzie rodriguez PA-C 03/17/2020 M16.11 Unilateral primary osteoarthriti s, right hip Lilibeth L. RASHMI Haq 03/17/2020 M25.551 Pain in right hip Lilibeth L. Fish, PA-C 01/27/2020 S40.012A Contusion of left shoulder, init ial encounter Jareth Raines MD 01/15/2020 M25.412 Effusion, left shoulder Jareth Raines MD 01/15/2020 M25.512 Pain in left shoulder Jareth faria MD 12/15/2019 M25.512 Pain in left shoulder Alethea Segovia PA-C Plan of Treatment Future Appointment(s):* 04/23/2020 10:45 am - Jareth Raines MD at [place] 03/30/2020 - Lilibeth Haq PA-C* M77.01 Medial epicondylitis, right elbow* Follow up:* after hip injections with [facility] Functional Status Description No Information Available Mental Status Description No Information Available Referrals Refer to Reason for Referral Status Appt Date Amy Raines MD MRI APPROVED PER [facility] FOR MRI OF RIGHT ELBOW (41249) TO MRI. DG Created [address] [facility], [address] [place] [address] [phone]
--- OUTSIDE RECORDS SUMMARY | 2020-04-07 09:07 | CCD | Continuity of Care Document ---
Author Author Brooks HU DO Organization Unknown Address [address] [facility], [address] [place] [address] Phone [phone] Care Team Providers Care Disaster Response Director Name Role Phone Josette Hubbard M.D. AUTM [phone] AUTM Unavailable Javed Sykes M.D. AUTM [phone] Ignacio Goyal AUTM [phone] Carlitos Mitchell M.D. AUTM [phone] Problems Description No Information Available Social History Type Date Description Comments Sex Unknown ETOH Use Rarely consumes alcohol Recreational Drug Use Denies Drug Use Tobacco Use Start: Unknown Denies Smoking Allergies, Adverse Reactions, Alerts Active Allergies Reaction Severity Comments Date Morphine 10/09/2019 Medications Active Medications SIG Qnty Indications Ordering Provide r Date Ciprofloxacin HCL 500mg Tablets 1 tab by mouth twice a day 20tabs Mehdi Hu, DO 0 Metronidazole 500mg Tablets 1 tab by mouth three times a day as directed 30tabs Mehdi Hu, DO 03/04/2020 Lisinopril 20mg Tablets 1 tab po qd Unknown Benadryl Allergy 25mg Tablets take 2 tablet 1 hour prior to contrast media. Unknown Vitamin D3 50mcg (1999 Ut) Capsule s 1 by mouth every day Unknown Vitamin B12 1000mcg Tablets ER 1 by mouth every day Unknown Tramadol HCL 50mg Tablets prn Unknown Tizanidine HCL 4mg Capsules 1 tab po qd Unknown Immunizations Description No Information Available Vital Signs Date Vital Result Comment 03/04/2020 9:59am BP Systolic 132 mmHg BP Diastolic 66 mmHg Height 66 inches 5'6" Weight 192.00 lb BMI (Body Mass Index) 31.0 kg/m2 [place] Body Weight 130 lb Weight 87.091 kg BSA (Body Surface Area) 1.97 m2 06/26/2019 10:24am Height 66 inches 5'6" Weight 195.00 lb BMI (Body Mass Index) 31.5 kg/m2 [place] Body Weight 130 lb Weight 88.452 kg BSA (Body Surface Area) 1.98 m2 Results Description No Information Available Procedures Date Code Description Status 10/07/2019 33321 Inject Tendon/Ligament Completed Medical Devices Description No Information Available Encounters Type Date Location Provider Dx Diagnosis Office Visit 10/07/2019 12:45p [facility] Clark Hinds MD M77.01 Medial epicondylitis, right elbow Assessments Date Code Description Provider 03/04/2020 K57.32 Diverticulitis of la rge intestine without perforation or abscess without bleeding Mehdi Hu DO 10/07/2019 M77.01 Medial epicondylitis, right elbo w Clark Hinds MD Plan of Treatment Future Appointment(s):* 03/25/2020 1:50 pm - Mehdi Hu DO at [facility] 03/04/2020 - Mehdi Hu DO* K57.32 Diverticulitis [...]
--- OUTSIDE RECORDS SUMMARY | 2020-04-07 09:07 | CCD ---
Author Author [facility] Organization [facility] Address Unknown Phone Unavailable Care Team Providers Care Chrome Worker Name Role Phone Javed Sykes Unavailable PROBLEMS Type Condition ICD9-CM Code [id number] Code Onset Dates Condition S tatus SNOMED Code Notes Problem Eustachian tube dysfunction H69.80 Active 5671 3002 Problem Premature menopause E28.319 Active 341849730 Problem Asthma, mild intermittent J45.20 Active 103918 007 Problem Colon cancer screening Z12.11 Active 433057112 Problem Hypertension I10 Active 74306429 Problem Breast cancer screening Z12.39 Active 99284322 8 Problem Postlaminectomy syndrome, not elsewhere classified M96.1 Active 60048459 Problem Vitamin D deficiency E55.9 Active 12585774 Problem Overweight E66.3 Active 976928804 Problem Recurrent sinusitis J32.9 Active 517100435 Problem Situational depression F43.21 Active 57040913 Problem IFG (impaired fasting glucose) R73.01 Active 3 39834420 Problem Mixed hyperlipidemia E78.2 Active 416881321 Problem Allergic rhinitis J30.9 Active 08828659 Problem Thyroid nodule E04.1 Active 349920509 Problem Sacroiliitis, not elsewhere classified M46.1 A ctive 44998832 Problem B12 deficiency E53.8 Active 888345507 Problem Osteopenia of multiple sites M85.89 Active 312 368583 Problem Traumatic tear of supraspina tus tendon of left shoulder, initial encounter S46.812A Active 550172437 Problem Primary osteoarthritis of both knees M17.0 Act ariella 262037481 Problem Cervical cancer screening Z12.4 Active 251263 001 ALLERGIES Allergen (clinical drug ingredient) Drug/Non Drug Allergy do cumented on EMR Reaction Allergy Type Onset Date Status morphine Morphine Sulfate([facility] Code:[address]-53) Nausea/Vomiti ng Drug Allergy Active Seasonal Allergies Unknown Non Drug Allergy Active ENCOUNTERS from 1964 to 2020-02-25 Encounter Location Date Provider Diagnosis [facility] [address] [place] [address] Feb, 020 Javed Sykes IMMUNIZATIONS Vaccine Route [...] School Language: Question Answer Notes Languages spoken: Indonesian Orthodox: Question Answer Notes Orthodox 13 Mosque Sexual Hx: Question Answer Notes Had sex [...] Information RESULTS No Results REASON FOR VISIT ER Visit [facility] 02/23; abd pain MEDICAL (GENERAL) HISTORY Type Description Date Medical History premature menopause at age 36 Medical History obesity Medical History hypertension Medical History hyperlipidemia 2B Medical History urinary incontinence- stress Medical History EGD 10/2010-hiatal hernia, ga stritis, completed 8W PPI after prolonged NSAID use Medical History 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 bulges by 07/2013 MRI s/p L3-5 decompression/fusion 12/2013 [facility]/s/p L2/3 fusion-[place] Medical History cervical DJD s/p C5-7 ACDF [id number]//09/2015 stable MRI Medical History allergic rhinitis h/o [...] Provider Name:Javed Sykes, 2021-05-09 0 9:30:00 AM, [facility] [place], [address], Insurance Providers Payer Name Payer Address Payer Phone Insured Name Patient Relati onship to Insured Coverage Start Date Coverage End Date [facility] PLAN [facility] [address] [facility] [phone] MELINA ELLSWORTH
--- OUTSIDE RECORDS SUMMARY | 2020-04-07 09:07 | CCD | Continuity of Care Document ---
Author Author Brooks OLSEN Organization Unknown Address [address] [place] [address], [facility] [address] [place] [address] Phone [phone] Care Team Providers Care Department Administrator Name Role Phone Shanita Nick MD AUTM [phone] Javed Sykes MD AUTM [phone] Problems Description No Active Problems Social History [...] as directed on sheet 1tabs M16.11 Eyal Cotton MD 03/17/2020 Voltaren 1% Gel apply to effected area 2-3 times daily 100gm Eyal Cotton MD 03/17/2020 Mobic 15mg Tablets 1 tab [...] Available Procedures Date Code Description Status 03/30/2020 55195 Inject Tendon Sheath, Ligament C ompleted 03/24/2020 96337 MRI Upper Extremity Any Joint Co mpleted 03/17/2020 73021 X-Ray Hip Unilateral With Pelvis 2-3 Views Completed 03/17/2020 60030 X-Ray Elbow Complete Completed 01/27/2020 11127 X-Ray Shoulder Complete Complete d 01/15/2020 26637 Inject/Drain Joint/Bursa Major C ompleted Medical Devices [...] epicondylitis, right elbo w Lilibeth L. RASHMI Cotton 03/30/2020 M77.01 Medial epicondylitis, right elbo w Lilibeth L. RASHMI Cotton 03/24/2020 M25.521 Pain in right elbow Eyal aguilar MD 03/24/2020 M25.521 Pain in right elbow MRI 03/17/2020 M25.521 Pain in right elbow Lilibeth L. Suzie rodriguez PA-C 03/17/2020 M25.521 Pain in right elbow Lilibeth L. Suzie rodriguez PA-C 03/17/2020 M16.11 Unilateral primary osteoarthriti s, right hip Lilibeth L. Fish, PA-C 03/17/2020 M25.551 Pain in right hip Lilibeth Cotton PA-C 01/27/2020 S40.012A Contusion of left shoulder, init ial encounter Jareth Raines MD 01/15/2020 M25.412 Effusion, left shoulder Jareth Raines MD 01/15/2020 M25.512 Pain in left shoulder Jareth faria MD 12/15/2019 M25.512 Pain in left shoulder Alethea Segovia PA-C Plan of Treatment Future Appointment(s):* 04/23/2020 10:45 am - Jareth Raines MD at [place] 03/30/2020 - Lilibeth Cotton PA-C* M77.01 Medial epicondylitis, right elbow* Follow up:* after hip injections with [facility] Functional Status Description No Information Available Mental Status Description No Information Available Referrals Refer to Dr Reason for Referral Status Appt Date Amy Raines MD MRI APPROVED PER [facility] FOR MRI OF RIGHT ELBOW (51430) TO MRI. DG Created [address] [facility], [address] [place] [address] [phone]
--- OUTSIDE RECORDS SUMMARY | 2020-04-07 09:07 | CCD | Continuity of Care Document ---
Author Author Brooks HAQ PA-C Organization Unknown Address [address] [facility] [address] [place] [address] Phone [phone] Care Team Providers Care Bone Grinder Name Role Phone Shanita Nick MD AUTM Javed Sykes MD AUTM [phone] Ignacio Goyal AUTM [phone] Problems Description No Active Problems Social History [...] Available Vital Signs Date Vital Result Comment 03/17/2020 2:25pm Body Temperature 96.9 F Height 67 inches 5'7" Weight 185.00 lb BMI (Body Mass Index) 29.0 kg/m2 01/27/2020 11:12am Body Temperature 96.8 F Results Description No Information Available Procedures Date Code Description Status 03/17/2020 89604 X-Ray Hip Unilateral With Pelvis 2-3 Views Completed 03/17/2020 22132 X-Ray Elbow Complete Completed 01/27/2020 17549 X-Ray Shoulder Complete Complete d 01/15/2020 63719 Inject/Drain Joint/Bursa Major C ompleted Medical Devices Description No Information Available Encounters Type Date Location Provider Dx Diagnosis Office Visit 01/27/2020 10:45a [place] Jareth Raines MD S4 0.012A Contusion of left shoulder, initial encounter Office Visit 01/15/2020 2:00p Shane Raines MD M2 5.412 Effusion, left shoulder M25.512 Pain in left shoulder Assessments Date Code Description Provider 03/17/2020 M25.521 Pain in right elbow Lilibeth Pancho rodriguez PA-C 03/17/2020 M16.11 Unilateral primary osteoarthriti s, right hip Lilibeth L. RASHMI Haq 03/17/2020 M25.551 Pain in right hip Lilibeth L. RASHMI Haq 01/27/2020 S40.012A Contusion of left shoulder, init ial encounter Jareth Raines MD 01/15/2020 M25.412 Effusion, left shoulder Jareth Raines MD 01/15/2020 M25.512 Pain in left shoulder Jareth faria MD 12/15/2019 M25.512 Pain in left shoulder Barratt M. Segovia, PA-C Plan of Treatment Future Appointment(s):* 04/07/2020 10:30 am - Jareth Raines MD at [place] 03/17/2020 - Lilibeth Haq PA-C* M25.521 Pain in right elbow* New Xrays:* MRI RT Elbow, Ordered: 03/17/20 * Follow up:* with [facility] after mri's for results ncog/book * M16.11 Unilateral primary osteoarthritis, right hip* New Medication:* Medrol 4 mg - dose gisell, take as directed on sheet * M25.551 Pain in right hip* New Xrays:* Fluoroscopic Guided Left Hip Inj, Ordered: 03/17/20 * MRI Right Hip, Ordered: 03/17/20 Functional Status Description No Information Available Mental Status Description No Information Available Referrals Description No Information Available
--- OUTSIDE RECORDS SUMMARY | 2020-04-07 09:07 | CCD ---
Author Author [facility] Organization [facility] Address Unknown Phone Unavailable Care Team Providers Care Horse Racing Manager Name Role Phone Javed Sykes Unavailable PROBLEMS Type Condition ICD9-CM Code ZYY06-MP Code Onset Dates Condition S tatus SNOMED Code Notes Problem Eustachian tube dysfunction H69.80 Active 5671 3002 Problem Premature menopause E28.319 Active 764474294 Problem Asthma, mild intermittent J45.20 Active 018808 007 Problem Colon cancer screening Z12.11 Active 319237977 Problem Hypertension I10 Active 34626058 Problem Breast cancer screening Z12.39 Active 45402180 8 Problem Postlaminectomy syndrome, not elsewhere classified M96.1 Active 50209007 Problem Vitamin D deficiency E55.9 Active 29296204 Problem Overweight E66.3 Active 752640520 Problem Recurrent sinusitis J32.9 Active 244691169 Problem Situational depression F43.21 Active 05120786 Problem IFG (impaired fasting glucose) R73.01 Active 3 41890753 Problem Mixed hyperlipidemia E78.2 Active 372823300 Problem Allergic rhinitis J30.9 Active 60475460 Problem Thyroid nodule E04.1 Active 946375952 Problem Sacroiliitis, not elsewhere classified M46.1 A ctive 05596283 Problem B12 deficiency E53.8 Active 551360485 Problem Osteopenia of multiple sites M85.89 Active 312 737829 Problem Traumatic tear of supraspina tus tendon of left shoulder, initial encounter S46.812A Active 514411772 Problem Primary osteoarthritis of both knees M17.0 Act ariella 829162904 Problem Cervical cancer screening Z12.4 Active 218138 001 ALLERGIES Allergen (clinical drug ingredient) Drug/Non Drug Allergy do cumented on EMR Reaction Allergy Type Onset Date Status morphine Morphine Sulfate([facility] Code:[address]-16) Nausea/Vomiti ng Drug Allergy Active Seasonal Allergies Unknown Non Drug Allergy Active ENCOUNTERS from 1965 to 2020-03-24 Encounter Location Date Provider Diagnosis [facility] [address] [place] [address] Mar, 021 Javed Sykes Hypertension I10 IMMUNIZATIONS Vaccine Route Administration Date Status Influenza [...] Language: Question Answer Notes Languages spoken: Ivorian Baptism: Question Answer Notes Baptism 13 Congregational Sexual Hx: Question Answer Notes Had sex [...] 1 tablet Orally Once a day Active Cetirizine-Pseudoephedrine ER 5-120 MG 1 tablet Orally Twice a day for 30 Days Active Lisinopril 20 MG 1 tablet Orally at bedtime for 30 day(s) Active Benadryl Allergy 25 MG 1 tablet Orally Every 6 hours as needed Active Tizanidine HCl 2 MG 1 to 2 tablet as needed Oral ly before bedtime MDD2 for 30 days Active Nebulizer/Tubing/Mouthpiece 1 as directed J10.1 Daily for 7 day( s) Apr, Active Fluticasone Propionate 50 MCG/DOSE 1 spray in each nos tril Nasally BID for 30 day(s) Active Tylenol PM 1 tab Oral before bedtime Active Vitamin B12 1000 mcg 1 tablet Orally Once a day Active Proventil HFA 108 (90 Base) MCG/ACT 2 puffs as needed Inhalation every 6 hrs prn wheeze for 30 day(s) Active Tramadol HCl 50 MG 1 tab Orally BID prn, MDD 2 for 30 Days Active PROCEDURES No Information RESULTS No Results REASON FOR VISIT Lisinopril 20 MG Tablet MEDICAL (GENERAL) HISTORY Type Description Date Medical History premature menopause at age 36 Medical History obesity Medical History hypertension Medical History hyperlipidemia 2B Medical History urinary incontinence- stress Medical History EGD 10/2010-hiatal hernia, [place] stritis, completed 8W PPI after prolonged NSAID use Medical History 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 bulges by 07/2013 MRI s/p L3-5 decompression/fusion 12/2013 [facility]/s/p L2/3 fusion-[place] Medical History cervical DJD s/p C5-7 ACDF [id number]//09/2015 stable MRI Medical History allergic rhinitis h/o [...] No Information FUNCTIONAL STATUS No Information ASSESSMENTS Encounter Date Diagnosis Assessment Notes Treatment Notes Treatm ent Clinical Notes Mar, Hypertension (ICD-10 - I10) PLAN OF TREATMENT Medication Medication Name Sig Start Date Stop Date Vitamin D (Cholecalciferol) 5000 1 tablet Orally Once a day Vitamin B12 1000 mcg 1 tablet Orally Once a day Tizanidine HCl 2 MG 1 to 2 tablet as needed Oral ly before bedtime MDD2 for 30 days Proventil HFA 108 (90 Base) MCG/ACT 2 puffs as needed Inhalation every 6 hrs prn wheeze for 30 day(s) Lisinopril 20 MG 1 tablet Orally at bedtime for 30 day(s) Fluticasone Propionate 50 MCG/DOSE 1 spray in each nos tril Nasally BID for 30 day(s) Tramadol HCl 50 MG 1 tab Orally BID prn, MDD 2 for 30 Days Benadryl Allergy 25 MG 1 tablet Orally Every 6 hours as needed Cetirizine-Pseudoephedrine ER 5-120 MG 1 tablet Orally Twice a day for 30 Days Next Appt Details Provider Name:Javed Foleyer, 2021-05-09 0 9:30:00 AM, [address] [place], [address], Insurance Providers Payer Name Payer Address Payer Phone Insured Name Patient Relati onship to Insured Coverage Start Date Coverage End Date [facility] COMM[facility] [facility]AN [facility] [address] [facility] [phone] MELINA ELLSWORTH self
--- OUTSIDE RECORDS SUMMARY | 2020-04-07 09:07 | CCD | Continuity of Care Document ---
Author Author Brooks HAQ PA-C Organization Unknown Address [address] [facility] [address] [place] [address] Phone [phone] Care Team Providers Care Establishment Guide Name Role Phone Shanita Nick MD AUTM [phone] Javed Sykes MD AUTM [phone] Ignacio Goyal AUTM [phone] Problems Description No Active Problems Social History [...] do not fill until 03/20/19) 40tabs Jareth aRines MD 04/2018 Lisinopril 20mg Tablets 1 by [...] Available Procedures Date Code Description Status 03/30/2020 43823 Inject Tendon Sheath, Ligament C ompleted 03/17/2020 98925 X-Ray Hip Unilateral With Pelvis 2-3 Views Completed 03/17/2020 08016 X-Ray Elbow Complete Completed 01/27/2020 62417 X-Ray Shoulder Complete Complete d 01/15/2020 07826 Inject/Drain Joint/Bursa Major C ompleted Medical Devices Description No Information Available Encounters Type Date Location Provider Dx Diagnosis Office Visit 01/27/2020 10:45a [place] Jareth Raines MD S4 0.012A Contusion of left shoulder, initial encounter Office Visit 01/15/2020 2:00p [place] Jareth Raines MD M2 5.412 Effusion, left shoulder M25.512 Pain in left shoulder Assessments Date Code Description Provider 03/30/2020 M67.823 Other specified disorders of [place], right elbow Lilibeth L. Yury PA-C 03/17/2020 M25.521 Pain in right elbow Lilibeth L. Fis VINICIO rodriguezC 03/17/2020 M16.11 Unilateral primary osteoarthriti s, right hip Lilibeth L. VINICIO HaqC 03/17/2020 M25.551 Pain in right hip Lilibeth L. MARTHA Haq-C 01/27/2020 S40.012A Contusion of left shoulder, init ial encounter DEsperanza Raines MD 01/15/2020 M25.412 Effusion, left shoulder Jareth Raines MD 01/15/2020 M25.512 Pain in left shoulder Jareth faria MD 12/15/2019 M25.512 Pain in left shoulder Alethea Segovia PA-C Plan of Treatment Future Appointment(s):* 04/07/2020 10:30 am - Jareth Raines MD at [place] 03/30/2020 - Lilibeth Haq PA-C* M67.823 Other specified disorders of tendon, right elbow* Follow up:* after hip injections with [facility] Functional Status Description No Information Available Mental Status Description No Information Available Referrals Refer to Reason for Referral Status Appt Date Amy Raines MD MRI APPROVED PER [facility] WEB FOR MRI OF RIGHT ELBOW (21206) TO MRI. DG Created [address] [facility], [address] [place] [address] [phone]
--- OUTSIDE RECORDS SUMMARY | 2020-04-07 09:07 | CCD | Continuity of Care Document ---
Author Author Brooks OLSEN Organization Unknown Address [address] [place] [address], [facility] [address] [place] [address] Phone [phone] Care Team Providers Care Stand In Name Role Phone Shanita Nick MD AUTM [phone] Javed Sykes MD AUTM [phone] Ignacio Goyal AUTM [phone] Problems Description No Active Problems Social History [...] Available Procedures Date Code Description Status 03/17/2020 56951 X-Ray Hip Unilateral With Pelvis 2-3 Views Completed 03/17/2020 57560 X-Ray Elbow Complete Completed 01/27/2020 39646 X-Ray Shoulder Complete Complete d 01/15/2020 43439 Inject/Drain Joint/Bursa Major C ompleted Medical Devices Description No Information Available Encounters Type Date Location Provider Dx Diagnosis Office Visit 01/27/2020 10:45a [place] Jareth Raines MD S4 0.012A Contusion of left shoulder, initial encounter Office Visit 01/15/2020 2:00p Shane Raines MD M2 5.412 Effusion, left shoulder M25.512 Pain in left shoulder Assessments Date Code Description Provider 03/17/2020 M25.521 Pain in right elbow Lilibeth Pancho rodriguez PA-C 03/17/2020 M16.11 Unilateral primary osteoarthriti s, right hip Lilibeth L. RASHMI Cotton 03/17/2020 M25.551 Pain in right hip Lilibeth L. RASHMI Cotton 01/27/2020 S40.012A Contusion of left shoulder, init ial encounter Jareth Raines MD 01/15/2020 M25.412 Effusion, left shoulder Jareth Raines MD 01/15/2020 M25.512 Pain in left shoulder Jareth faria MD 12/15/2019 M25.512 Pain in left shoulder Alethea Segovia PA-C Plan of Treatment Future Appointment(s):* 04/07/2020 10:30 am - Jareth Raines MD at [place] 03/17/2020 - Lilibeth Cotton PA-C* M25.521 Pain in right elbow* New Xrays:* MRI RT Elbow, Scheduled: 03/24/20 * Follow up:* with [facility] after mri's for results ncog/book * M16.11 Unilateral primary osteoarthritis, right hip* New Medication:* Medrol 4 mg - dose gisell, take as directed on sheet * M25.551 Pain in right hip Functional Status Description No Information Available Mental Status Description No Information Available Referrals Refer to Dr Reason for Referral Status Appt Date Amy Raines MD MRI APPROVED PER [facility] WEB FOR MRI OF RIGHT ELBOW ([id number]) TO MRI. DG Created [facility], [address] [place] [address] [phone]
--- OUTSIDE RECORDS SUMMARY | 2020-04-07 09:08 | CCD | Continuity of Care Document ---
Author Author Brooks RAINES MD Organization Unknown Address [address] [place] [address], [address] [place] [address] Phone [phone] Care Team Providers Care Forcer Maker Name Role Phone Shanita Nick MD AUTM Javed Sykes MD AUTM [phone] Ignacio Goyal AUTM [phone] Problems Description No Active Problems Social History Type Date Description Comments Sex Unknown ETOH Use Rarely consumes alcohol Tobacco Use Start: Unknown Denies Smoking Smoking Status Reviewed: 01/16/19 Denies Smoking Allergies, Adverse Reactions, Alerts Active Allergies Reaction Severity Comments Date Morphine 02/18/2015 Medications Active Medications SIG Qnty Indications Ordering Provide r Date Mobic 15mg Tablets 1 tab by mouth [...] Available Vital Signs Date Vital Result Comment 01/27/2020 11:12am Body Temperature 96.8 F 03/25/2019 10:43am Body Temperature 99.1 F Results Description No Information Available Procedures Date Code Description Status 01/27/2020 15942 X-Ray Shoulder Complete Complete d 01/15/2020 56349 Inject/Drain Joint/Bursa Major C ompleted 08/27/2019 27465 Therapeutic Procedure, Each 15 M inutes Completed 08/20/2019 49482 Therapeutic Procedure, Each 15 M inutes Completed 08/15/2019 88089 Therapeutic Procedure, Each 15 M inutes Completed 08/15/2019 07330 Hot Or Cold Packs Completed 08/08/2019 94519 Therapeutic Procedure, Each 15 M inutes Completed Medical Devices Description No Information Available Encounters Type Date Location Provider Dx Diagnosis Office Visit 01/27/2020 10:45a Shane Raines MD S4 0.012A Contusion of left shoulder, initial encounter Office Visit 01/15/2020 2:00p Shane Raines MD M2 5.412 Effusion, left shoulder M25.512 Pain in left shoulder Assessments Date Code Description Provider 01/27/2020 S40.012A Contusion of left shoulder, init ial encounter Jareth Raines MD 01/15/2020 M25.412 Effusion, left shoulder Jareth Raines MD 01/15/2020 M25.512 Pain in left shoulder Jareth faria MD 12/15/2019 M25.512 Pain in left shoulder Alethea Segovia PA-C 08/27/2019 Z47.89 Encounter for other orthopedic a ftercare Renee Foster, P.T.A. 08/20/2019 Z47.89 Encounter for other orthopedic a ftercare Renee Foster, P.T.A. 08/15/2019 Z47.89 Encounter for other orthopedic a ftercare Wendy Medeiros, FLORESITA 08/08/2019 Z47.89 Encounter for other orthopedic a ftercare Renee Foster, P.T.A. Plan of Treatment Future Appointment(s):* 02/25/2020 10:00 am - Jareth Raines MD at [place] 01/27/2020 - Jareth Raines MD* S40.012A Contusion of left shoulder, initial encounter* New Medication:* Mobic 15 mg - 1 tab by mouth daily with food * Follow up:* f/u in 4 weeks Functional Status Description No Information Available Mental Status Description No Information Available Referrals Description No Information Available
--- OUTSIDE RECORDS SUMMARY | 2020-04-07 09:08 | CCD ---
Author Author [facility] Organization [facility] Address Unknown Phone Unavailable Care Team Providers Care Stylist Assistant Name Role Phone JONATHON DEJESUS PA Unavailable Unavailable MCELHERAN, JONATHON PA Unavailable Unavailable MCELHERAN, JONATHON PA Unavailable Unavailable MCELHERAN, JONATHON PA Unavailable Unavailable MCELHERAN, JONATHON PA Unavailable Unavailable MCELHERAN, JONATHON PA Unavailable Unavailable MCELHERAN, JONATHON PA Unavailable Unavailable MCELHERAN, JONATHON PA Unavailable Unavailable MCELHERAN, JONATHON PA Unavailable Unavailable MCELHERAN, JONATHON PA Unavailable Unavailable MCELHERAN, JONATHON PA Unavailable Unavailable MCELHERAN, JONATHON PA Unavailable Unavailable MCELHERAN, JONATHON PA Unavailable Unavailable MCELHERAN, JONATHON PA Unavailable Unavailable MCELHERAN, JONATHON PA Unavailable Unavailable MCELHERAN, JONATHON PA Unavailable Unavailable MCELHERAN, JONATHON PA Unavailable Unavailable MCELHERAN, JONATHON PA Unavailable Unavailable MCELHERAN, JONATHON PA Unavailable Unavailable MCELHERAN, JONATHON PA Unavailable Unavailable MCELHERAN, JONATHON PA Unavailable Unavailable MCELHERAN, JONATHON PA Unavailable Unavailable MCELHERAN, JONATHON PA Unavailable Unavailable MCELHERAN, JONATHON PA Unavailable Unavailable MCELHERAN, JONATHON PA Unavailable Unavailable MCELHERAN, JONATHON PA Unavailable Unavailable MCELHERAN, JONATHON PA Unavailable Unavailable MCELHERAN, JONATHON PA Unavailable Unavailable Mollison, Rosio Rodas MD Unavailable Unavailable Mollison, Rosio Rodas MD Unavailable Unavailable Mollison, Rosio Rodas MD Unavailable Unavailable Mollison, Rosio Rodas MD Unavailable Unavailable Mollison, Rosio Rodas MD Unavailable Unavailable Mollison, Rosio Rodas MD Unavailable Unavailable Mollison, Rosio Rodas MD Unavailable Unavailable Mollison, Rosio Rodas MD Unavailable Unavailable Mollison, Rosio Rodas MD Unavailable Unavailable Mollison, Rosio Rodas MD Unavailable Unavailable Mollison, Rosio Rodas MD Unavailable Unavailable Mollison, Rosio Rodas MD Unavailable Unavailable Mollison, Rosio Rodas MD Unavailable Unavailable Mollison, Rosio Rodas MD Unavailable Unavailable Mollison, Rosio Rodas MD Unavailable Unavailable Mollison, Rosio Rodas MD Unavailable Unavailable Mollison, Rosio Rodas MD Unavailable Unavailable Mollison, Rosio Rodas MD Unavailable Unavailable Mollison, Rosio Rodas MD Unavailable Unavailable Mollison, Rosio Rodas MD Unavailable Unavailable Mollison, Rosio Rodas MD Unavailable Unavailable VanAmy ley MD Unavailable Unavailable VanAmy ley MD Unavailable Unavailable VanAmy ley MD Unavailable Unavailable VanAmy ley MD Unavailable Unavailable Amy Raines MD Unavailable Unavailable VanAmy ley MD Unavailable Unavailable Amy Raines MD Unavailable Unavailable Amy Raines MD Unavailable Unavailable Amy Raines MD Unavailable Unavailable Amy Raines MD Unavailable Unavailable Amy Raines MD Unavailable Unavailable Amy Raines MD Unavailable Unavailable Amy Raines MD Unavailable Unavailable Amy Raines MD Unavailable Unavailable VanAmy ley MD Unavailable Unavailable VanAmy ley MD Unavailable Unavailable VanAmy ley MD Unavailable Unavailable Amy Raines MD Unavailable Unavailable Amy Raines MD Unavailable Unavailable Amy Raines MD Unavailable Unavailable Amy Raines MD Unavailable Unavailable Amy Raines MD Unavailable Unavailable VanAmy ley MD Unavailable Unavailable VanAmy ley MD Unavailable Unavailable Amy Raines MD Unavailable Unavailable Amy Raines MD Unavailable Unavailable Amy Raines MD Unavailable Unavailable VanAmy ley MD Unavailable Unavailable VanAmy ley MD Unavailable Unavailable VanAmy ley MD Unavailable Unavailable VanAmy ley MD Unavailable Unavailable Amy Raines MD Unavailable Unavailable Amy Raines MD Unavailable Unavailable Amy Raines MD Unavailable Unavailable Amy Raines MD Unavailable Unavailable Amy Raines MD Unavailable Unavailable Amy Raines MD Unavailable Unavailable Amy Raines MD Unavailable Unavailable Amy Raines MD Unavailable Unavailable Amy Raines MD Unavailable Unavailable Amy Raines MD Unavailable Unavailable TiburcioeenAmy meneses MD Unavailable Unavailable Amy Raines MD Unavailable Unavailable TiburcioeenAmy meneses MD Unavailable Unavailable Martin, Emily [employer] SUPERVISOR Unavailable Unavailable Martin, Emily [employer] LINK SHOP SUPERVISOR Unavailable Unavailable Martin, Emily [employer] LINK SHOP SUPERVISOR Unavailable Unavailable Martin, Emily BEL[employer] LINK SHOP SUPERVISOR Unavailable Unavailable Martin, Emily BEL[employer] AND LINK SHOP SUPERVISOR Unavailable Unavailable Martin, Emily BEL[employer] AND LINK SHOP SUPERVISOR Unavailable Unavailable Martin, Emily BEL[employer] LINK SHOP SUPERVISOR Unavailable Unavailable Martin, Emily BELT AND LINK SHOP SUPERVISOR Unavailable Unavailable Martin, Emily BEL[employer] LINK SHOP SUPERVISOR Unavailable Unavailable Martin, Emily BEL[employer] LINK SHOP SUPERVISOR Unavailable Unavailable Martin, Emily BEL[employer] LINK SHOP SUPERVISOR Unavailable Unavailable Jadiel Hayes MD Unavailable Unavailable Jadiel Hayes MD Unavailable Unavailable Jadiel Hayes MD Unavailable Unavailable Jadiel Hayes MD Unavailable Unavailable Jadiel Hayes MD Unavailable Unavailable Jadiel Hayes MD Unavailable Unavailable Jadiel Hayes MD Unavailable Unavailable Jadiel Hayes MD Unavailable Unavailable Jadiel Hayes MD Unavailable Unavailable Jadiel Hayes MD Unavailable Unavailable Jadiel Hayes MD Unavailable Unavailable Jadiel Hayes MD Unavailable Unavailable Jadiel Hayes MD Unavailable Unavailable Jadiel Hayes MD Unavailable Unavailable Jadiel Hayes MD Unavailable Unavailable Jadiel Hayes MD Unavailable Unavailable Jadiel Hayes MD Unavailable Unavailable Jadiel Hayes MD Unavailable Unavailable Jadiel Hayes MD Unavailable Unavailable Jadiel Hayes MD Unavailable Unavailable Jadiel Hayes MD Unavailable Unavailable Jadiel Hayes MD Unavailable Unavailable Jadiel Hayes MD Unavailable Unavailable Jadiel Hayes MD Unavailable Unavailable Jadiel Hayes MD Unavailable Unavailable Jadiel Hayes MD Unavailable Unavailable Jadiel Hayes MD Unavailable Unavailable Jadiel Hayes MD Unavailable Unavailable Abbe ACEVES DO Unavailable Unavailable BRYDEN, A SILVIA DO Unavailable Unavailable BRYDEN, A SILVIA DO Unavailable Unavailable BRYDEN, A SILVIA DO Unavailable Unavailable BRYDEN, A SILVIA DO Unavailable Unavailable BRYDEN, A SILVIA DO Unavailable Unavailable BRYDEN, A SILVIA DO Unavailable Unavailable BRYDEN, A SILVIA DO Unavailable Unavailable BRYDEN, A SILVIA DO Unavailable Unavailable BRYDEN, A SILVIA DO Unavailable Unavailable BRYDEN, A SILVIA DO Unavailable Unavailable BRYDEN, A SILVIA DO Unavailable Unavailable BRYDEN, A SILVIA DO Unavailable Unavailable BRYDEN, A SILVIA DO Unavailable Unavailable BRYDEN, A SILVIA DO Unavailable Unavailable BRYDEN, A SILVIA DO Unavailable Unavailable BRYDEN, A SILVIA DO Unavailable Unavailable BRYDEN, A SILVIA DO Unavailable Unavailable BRYDEN, A SILVIA DO Unavailable Unavailable BRYDEN, A SILVIA DO Unavailable Unavailable BRYDEN, A SILVIA DO Unavailable Unavailable BRYDEN, A SILVIA DO Unavailable Unavailable BRYDEN, A SILVIA DO Unavailable Unavailable BRYDEN, A SILVIA DO Unavailable Unavailable BRYDEN, A SILVIA DO Unavailable Unavailable BRYDEN, A SILVIA DO Unavailable Unavailable BRYDEN, A SILVIA DO Unavailable Unavailable LETTIERE, A JONATHON PA Unavailable Unavailable LETTIERE, A JONATHON PA Unavailable Unavailable LETTIERE, A JONATHON PA Unavailable Unavailable LETTIERE, A JONATHON PA Unavailable Unavailable LETTIERE, A JONATHON PA Unavailable Unavailable LETTIERE, A JONATHON PA Unavailable Unavailable LETTIERE, A JONATHON PA Unavailable Unavailable LETTIERE, A JONATHON PA Unavailable Unavailable LETTIERE, A JONATHON PA Unavailable Unavailable LETTIERE, A JONATHON PA Unavailable Unavailable LETTIERE, A JONATHON PA Unavailable Unavailable LETTIERE, A JONATHON PA Unavailable Unavailable LETTIERE, A JONATHON PA Unavailable Unavailable LETTIERE, A JONATHON PA Unavailable Unavailable LETTIERE, A JONATHON PA Unavailable Unavailable LETTIERE, A JONATHON PA Unavailable Unavailable LETTIERE, A JONATHON PA Unavailable Unavailable LETTIERE, A JONATHON PA Unavailable Unavailable LETTIERE, A JONATHON PA Unavailable Unavailable LETTIERE, A JONATHON PA Unavailable Unavailable LETTIERE, A JONATHON PA Unavailable Unavailable LETTIERE, A JONATHON PA Unavailable Unavailable LETTIERE, A JONATHON PA Unavailable Unavailable LETTIERE, A JONATHON PA Unavailable Unavailable LETTIERE, A JONATHON PA Unavailable Unavailable LETTIERE, A JONATHON PA Unavailable Unavailable LETTIERE, A JONATHON PA Unavailable Unavailable LETTIERE, A JONATHON PA Unavailable Unavailable LETTIERE, A JONATHON PA Unavailable Unavailable Re-disclosure Warning The records that you are about to access may contain information from federally-assisted alcohol or drug abuse programs. If such information is present, then the following federally mandated warning applies: This information has been disclosed to you from records protected by federal confidentiality rules (42 CFR part 2). The federal rules prohibit you from making any further disclosure of this information unless further disclosure is expressly permitted by the written consent of the person to whom it pertains or as otherwise permitted by 42 CFR part 2. A general authorization for the release of medical or other information is NOT sufficient for this purpose. The Federal rules restrict any use of the information to criminally investigate or prosecute any alcohol or drug abuse patient.The records that you are about to access may contain highly sensitive health information, the redisclosure of which is protected by Article 27-F of the [facility] Public Health law. If you continue you may have access to information: Regarding HIV / AIDS; Provided by facilities licensed or operated by the [facility] Office of Mental Health; or Provided by the [facility] Office for People With Developmental Disabilities. If such information is present, then the following [facility] mandated warning applies: This information has been disclosed to you from confidential records which are protected by state law. State law prohibits you from making any further disclosure of this information without the specific written consent of the person to whom it pertains, or as otherwise permitted by law. Any unauthorized further disclosure in violation of state law may result in a fine or halfway sentence or both. A general authorization for the release of medical or other information is NOT sufficient authorization for further disc losure. Allergies and Adverse Reactions Type Description Substance Reaction Status Data Source(s ) Drug allergy Morphine Sulfate Morphine Nausea/Vomiting Active eCW1 ([facility]) Seasonal Allergies Seasonal Allergies Seasonal Allergies Unknown A ctive eCW1 (Count Includes [facility]) Family History Family Member Name Family Member Gender Family Member Status Date o f Status Description Data Source(s) Unknown Unknown Problem MED[facility] ([facility]) pgm,mother,father Unknown Male Problem MED[facility] ([facility]) Encounters Encounter Providers Location Date Indications Data Source(s ) [place] [address] [facility] [address] 03/23/2020 12:00:00 AM EST eCW1 ([facility]) Outpatient Attender: SILVIA Diaz/Freddy/Raul/Patrick ndl 03/04/2020 09:00:00 AM EST [facility] ([facility]) [place] [address] [facility] [address] 02/25/2020 12:00:00 AM EST eCW1 ([facility]) Unknown [address] [facility] [place] [address] 02/24/2020 12:00:00 AM EST eCW1 ([facility]) [place] [address] [facility] [address] 02/24/2020 12:00:00 AM EST eCW1 ([facility]) Outpatient Attender: Amy Raines MD Physical Therap y 01/27/2020 09:45:00 AM EST MEDENT ([facility]) Outpatient Attender: Amy Raines MD Physical Therap y 01/15/2020 02:00:00 PM EDT MED[facility] ([facility]) [facility] [address] [facility] [address] 12/08/2019 12:00:00 AM EDT eCW1 ([facility]) Outpatient Attender: Clark Moore/Freddy/Raul/Re indl 10/07/2019 12:45:00 PM EDT MEDENT ([facility]) Outpatient Attender: JONATHON crawley 10/07/2019 11:30:00 AM EDT MEDENT ([facility]) Outpatient Referrer: JONATHON THOMAS 09/05/2019 04:54 :00 AM EDT [facility] Unknown [address] [facility] [place] [address] 08/25/2019 12:00:00 AM EDT eCW1 ([facility]) Outpatient Referrer: JONATHON THOMAS 08/08/2019 05:45 :00 AM EDT [facility] [place] [address] [facility] [place] [address] 08/08/2019 12:00:00 AM EDT eCW1 ([facility]) [address] [address] 08/06/2019 12:00:00 AM EDT eCW1 ([facility]) Outpatient Attender: JONATHON crawley 07/28/2019 08:00:00 AM EDT MED[facility] ([facility]) [address] [address] 07/08/2019 12:00:00 AM EDT eCW1 ([facility]) Outpatient Attender: Jadiel Moore/Freddy/Raul/Kyle day 06/26/2019 10:30:00 AM EDT MEDENT ([facility]) Outpatient [address] [place] [address], [place] [address] 06/20/2019 12:00:00 AM EDT eCW1 ([facility]) [address] [address] 06/20/2019 12:00:00 AM EDT eCW1 ([facility]) Outpatient Attender: Emily lima 06/02/2019 08:40:00 AM EDT MED[facility] ([facility]) Outpatient Attender: Emily lima 05/23/2019 07:00:00 AM EST MED[facility] ([facility]) Outpatient Attender: Amy Raines MD Physical Therap y 02/20/2019 10:00:00 AM EST [facility] ([facility]) [address] [address] 02/18/2019 12:00:00 AM EST eCW1 ([facility]) [address] [address] 02/11/2019 12:00:00 AM EST eCW1 ([facility]) Immunizations Vaccine Date Status Description Data Source(s) influenza, recombinant, quadrIvalent,injectable, prese rvative free 02/18/2019 05:57:00 PM EST completed eCW1 ([facility]) influenza, recombinant, quadrIvalent,injectable, prese rvative free 02/18/2019 05:57:00 PM EST completed eCW1 ([facility]) influenza, recombinant, quadrIvalent,injectable, prese rvative free 02/18/2019 05:57:00 PM EST completed eCW1 ([facility]) influenza, recombinant, quadrIvalent,injectable, prese rvative free 02/18/2019 05:57:00 PM EST completed eCW1 ([facility]) influenza, recombinant, quadrIvalent,injectable, prese rvative free 02/18/2019 05:57:00 PM EST completed eCW1 ([facility]) influenza, recombinant, quadrIvalent,injectable, prese rvative free 02/18/2019 05:57:00 PM EST completed eCW1 ([facility]) Medications Medication Brand Name Start Date Product Form Dose Route Admi nistrative Instructions Pharmacy Instructions Status Indications Reaction Description Data Source(s) 4 mg 03/18/2020 12:00:00 AM EST tablet 21 TAKE DIRECTED PER SHEET GIVEN TAKE DIRECTED PER SHEET GIVEN SOLD: 03/25/2020 [facility] Diclofenac Sodium 0.01 MG/MG Topical Gel Voltaren 03/17/2020 12 :00:00 AM EST active MED[facility] ([facility] ) Methylprednisolone 4 MG Oral Tablet [Medrol] Medrol 12:00:00 AM EST active MEDENT ( [facility]) 500 mg 03/04/2020 12:00:00 AM EST tablet 20 TAKE ONE TABLET BY MOUTH TWICE A DAY TAKE ONE TABLET BY MOUTH TWICE A DAY SOLD: 03/06/2020 [facility] Metronidazole 500 MG Oral Tablet METRONIDAZOLE 03/04/2020 12:0 0:00 AM EST tablet 30 TAKE ONE TABLET BY MOUTH THREE T IMES A DAY DIRECTED TAKE ONE TABLET BY MOUTH THREE TIMES A DAY DIRECTED SOLD: 03/06/2020 [facility] Ciprofloxacin 500 MG Oral Tablet Ciprofloxacin HCL 03/04/2020 12:00 :00 AM EST ORAL completed MEDENT ([facility] ) Metronidazole 500 MG Oral Tablet Metronidazole 03/04/2020 12:00:00 AM EST ORAL completed MEDENT ([facility], ) 5-325 mg 02/24/2020 12:00:00 AM EST tablet 8 TAKE ONE TABLET BY MOUTH EVERY 6 TO 8 HOURS NEEDED FOR PAIN, MAXIMUM DAILY DOSE = FOUR TABLETS TAKE ONE TABLET BY MOUTH EVERY 6 TO 8 HOURS NEEDED FOR PAIN, MAXIMUM DAILY DOSE = FOUR TABLETS SOLD: 02/25/2020 [facility] 875-125 mg 02/24/2020 12:00:00 AM EST tablet 30 TAKE ONE TABLET BY MOUTH THREE TIMES A DAY TAKE ONE TABLET BY MOUTH THREE TIMES A DAY SOLD: 02/25/2020 [facility] meloxicam 15 MG Oral Tablet [Mobic] Mobic 01/27/2020 12:00:00 AM EST ORAL active MEDENT ([facility]) 15 mg 01/27/2020 12:00:00 AM EST tablet 30 TAKE ONE TABLET BY MOUTH EVERY DAY WITH FOOD TAKE ONE TABLET BY MOUTH EVERY DAY WITH FOOD SOLD: 01/29/2020 [facility] 2 mg 12/09/2019 12:00:00 AM EDT tablet 60 TAKE 1 TO 2 TABLETS BY MOUTH ONCE DAILY AT BEDTIME NEEDED TAKE 1 TO 2 TABLETS BY MOUTH ONCE DAILY AT BEDTIME NEEDED SOLD: 01/10/2020 [facility] 2 mg 12/09/2019 12:00:00 AM EDT tablet 60 TAKE 1 TO 2 TABLETS BY MOUTH ONCE DAILY AT BEDTIME NEEDED TAKE 1 TO 2 TABLETS BY MOUTH ONCE DAILY AT BEDTIME NEEDED SOLD: 12/11/2019 [facility] 20 mg 12/09/2019 12:00:00 AM EDT tablet 30 TAKE ONE TABLET BY MOUTH EVERY DAY AT BEDTIME TAKE ONE TABLET BY MOUTH EVERY DAY AT BEDTIME SOLD: 01/10/2020 [facility] 20 mg 12/09/2019 12:00:00 AM EDT tablet 30 TAKE ONE TABLET BY MOUTH EVERY DAY AT BEDTIME TAKE ONE TABLET BY MOUTH EVERY DAY AT BEDTIME SOLD: 02/10/2020 [facility] 20 mg 12/09/2019 12:00:00 AM EDT tablet 30 TAKE ONE TABLET BY MOUTH EVERY DAY AT BEDTIME TAKE ONE TABLET BY MOUTH EVERY DAY AT BEDTIME SOLD: 03/10/2020 [facility] 20 mg 12/09/2019 12:00:00 AM EDT tablet 30 TAKE ONE TABLET BY MOUTH EVERY DAY AT BEDTIME TAKE ONE TABLET BY MOUTH EVERY DAY AT BEDTIME SOLD: 12/11/2019 [facility] tizanidine 2 MG Oral Tablet TIZANIDINE HCL 12/09/2019 12:00:00 AM EDT tablet 60 TAKE 1 TO 2 TABLETS BY MOUTH ONCE DAILY AT BEDTIME NEEDED TAKE 1 TO 2 TABLETS BY MOUTH ONCE DAILY AT BEDTIME NEEDED SOLD: 03/10/2020 [facility] tizanidine 2 MG Oral Tablet TIZANIDINE HCL 12/09/2019 12:00:00 AM EDT tablet 60 TAKE 1 TO 2 TABLETS BY MOUTH ONCE DAILY AT BEDTIME NEEDED TAKE 1 TO 2 TABLETS BY MOUTH ONCE DAILY AT BEDTIME NEEDED SOLD: 02/10/2020 [facility] 20 mg 11/05/2019 12:00:00 AM EDT tablet 30 TAKE ONE TABLET BY MOUTH AT BEDTIME TAKE ONE TABLET BY MOUTH AT BEDTIME SOLD: 11/12/2019 [facility] 2 mg 11/05/2019 12:00:00 AM EDT tablet 60 TAKE 1-2 TABLETS BY MOUTH NEEDED BEFORE BEDTIME MAXIMUM DAILY DOSE = 2 TABLETS TAKE 1-2 TABLETS BY MOUTH NEEDED BEFORE BEDTIME MAXIMUM DAILY DOSE = 2 TABLETS SOLD: 11/12/2019 [facility] 5-120 mg 07/09/2019 12:00:00 AM EDT tablet extended release 12 hr 60 TAKE ONE TABLET BY MOUTH TWO TIMES A DAY TAKE ONE TABLET BY MOUTH TWO TIMES A DAY SOLD: 07/10/2019 [facility] 50 mg 07/08/2019 12:00:00 AM EDT tablet 60 TAKE ONE TABLET BY MOUTH TWICE A DAY NEEDED. MAXIMUM DAILY DOSE = 2 TABLETS TAKE ONE TABLET BY MOUTH TWICE A DAY NEEDED. MAXIMUM DAILY DOSE = 2 TABLETS SOLD: 10/10/2019 [facility] 50 mcg/actuation 07/08/2019 12:00:00 AM EDT spray,suspension 16 SPRAY ONE SPRAY IN EACH NOSTRIL TWICE A DAY SPRAY ONE SPRAY IN EACH NOSTRIL TWICE A DAY SOLD: 10/10/2019 [facility] 20 mg 07/08/2019 12:00:00 AM EDT tablet 30 TAKE ONE TABLET BY MOUTH AT BEDTIME TAKE ONE TABLET BY MOUTH AT BEDTIME SOLD: 08/11/2019 [facility] 2 mg 07/08/2019 12:00:00 AM EDT tablet 60 TAKE ONE TO TWO TABLET BY MOUTH NEEDED BEFORE BEDTIME. MAXIMUM DAILY DOSE = 2 TABLETS TAKE ONE TO TWO TABLET BY MOUTH NEEDED BEFORE BEDTIME. MAXIMUM DAILY DOSE = 2 TABLETS SOLD: 07/10/2019 [facility] 2 mg 07/08/2019 12:00:00 AM EDT tablet 60 TAKE ONE TO TWO TABLET BY MOUTH NEEDED BEFORE BEDTIME. MAXIMUM DAILY DOSE = 2 TABLETS TAKE ONE TO TWO TABLET BY MOUTH NEEDED BEFORE BEDTIME. MAXIMUM DAILY DOSE = 2 TABLETS SOLD: 08/11/2019 [facility] 20 mg 07/08/2019 12:00:00 AM EDT tablet 30 TAKE ONE TABLET BY MOUTH AT BEDTIME TAKE ONE TABLET BY MOUTH AT BEDTIME SOLD: 09/11/2019 [facility] 2 mg 07/08/2019 12:00:00 AM EDT tablet 60 TAKE ONE TO TWO TABLET BY MOUTH NEEDED BEFORE BEDTIME. MAXIMUM DAILY DOSE = 2 TABLETS TAKE ONE TO TWO TABLET BY MOUTH NEEDED BEFORE BEDTIME. MAXIMUM DAILY DOSE = 2 TABLETS SOLD: 09/11/2019 [facility] 2 mg 07/08/2019 12:00:00 AM EDT tablet 60 TAKE ONE TO TWO TABLET BY MOUTH NEEDED BEFORE BEDTIME. MAXIMUM DAILY DOSE = 2 TABLETS TAKE ONE TO TWO TABLET BY MOUTH NEEDED BEFORE BEDTIME. MAXIMUM DAILY DOSE = 2 TABLETS SOLD: 10/10/2019 [facility] 20 mg 07/08/2019 12:00:00 AM EDT tablet 30 TAKE ONE TABLET BY MOUTH AT BEDTIME TAKE ONE TABLET BY MOUTH AT BEDTIME SOLD: 10/10/2019 [facility] 50 mcg/actuation 07/08/2019 12:00:00 AM EDT spray,suspension 16 SPRAY ONE SPRAY IN EACH NOSTRIL TWICE A DAY SPRAY ONE SPRAY IN EACH NOSTRIL TWICE A DAY SOLD: 07/10/2019 [facility] 50 mcg/actuation 07/08/2019 12:00:00 AM EDT spray,suspension 16 SPRAY ONE SPRAY IN EACH NOSTRIL TWICE A DAY SPRAY ONE SPRAY IN EACH NOSTRIL TWICE A DAY SOLD: 01/10/2020 [facility] 20 mg 07/08/2019 12:00:00 AM EDT tablet 30 TAKE ONE TABLET BY MOUTH AT BEDTIME TAKE ONE TABLET BY MOUTH AT BEDTIME SOLD: 07/10/2019 [facility] 50 mg 07/08/2019 12:00:00 AM EDT tablet 60 TAKE ONE TABLET BY MOUTH TWICE A DAY NEEDED. MAXIMUM DAILY DOSE = 2 TABLETS TAKE ONE TABLET BY MOUTH TWICE A DAY NEEDED. MAXIMUM DAILY DOSE = 2 TABLETS SOLD: 08/11/2019 [facility] 50 mg 07/08/2019 12:00:00 AM EDT tablet 14 TAKE ONE TABLET BY MOUTH TWICE A DAY NEEDED. MAXIMUM DAILY DOSE = 2 TABLETS TAKE ONE TABLET BY MOUTH TWICE A DAY NEEDED. MAXIMUM DAILY DOSE = 2 TABLETS SOLD: 01/10/2020 [facility] 50 mg 07/08/2019 12:00:00 AM EDT tablet 60 TAKE ONE TABLET BY MOUTH TWICE A DAY NEEDED. MAXIMUM DAILY DOSE = 2 TABLETS TAKE ONE TABLET BY MOUTH TWICE A DAY NEEDED. MAXIMUM DAILY DOSE = 2 TABLETS SOLD: 07/10/2019 [facility] 40 mg 06/28/2019 12:00:00 AM EDT capsule,delayed release (DR/EC) 30 TAKE ONE CAPSULE BY MOUTH EVERY DAY TAKE ONE CAPSULE BY MOUTH EVERY DAY SOLD: 11/12/2019 [facility] 40 mg 06/28/2019 12:00:00 AM EDT capsule,delayed release (DR/EC) 30 TAKE ONE CAPSULE BY MOUTH EVERY DAY TAKE ONE CAPSULE BY MOUTH EVERY DAY SOLD: 01/10/2020 [facility] 40 mg 06/28/2019 12:00:00 AM EDT capsule,delayed release (DR/EC) 30 TAKE ONE CAPSULE BY MOUTH EVERY DAY TAKE ONE CAPSULE BY MOUTH EVERY DAY SOLD: 07/01/2019 [facility] 40 mg 06/28/2019 12:00:00 AM EDT capsule,delayed release (DR/EC) 30 TAKE ONE CAPSULE BY MOUTH EVERY DAY TAKE ONE CAPSULE BY MOUTH EVERY DAY SOLD: 03/10/2020 [facility] Omeprazole 40 MG Delayed Release Oral Capsule Omeprazole 06/26/2019 12:00:00 AM EDT ORAL active MED[facility] ([facility] ) Levofloxacin 500 MG Oral Tablet Levofloxacin 500 MG 06/20/2019 1 2:00:00 AM EDT 1.0 {tablet} active Levofloxaci n 500 MG eCW1 ([facility] Includes [facility]) 500 mg 06/20/2019 12:00:00 AM EDT tablet 7 TAKE ONE TABLET BY MOUTH EVERY DAY FOR 7 DAYS TAKE ONE TABLET BY MOUTH EVERY DAY FOR 7 DAYS SOLD: 06/20/2019 [facility] Prednisone 20 MG Oral Tablet Prednisone 06/02/2019 12:00:00 AM EDT completed MED[facility] ([facility]) cefdinir 300 MG Oral Capsule Cefdinir 06/02/2019 12:00:00 AM EDT ORAL completed [facility] ([facility]) 300 mg 06/02/2019 12:00:00 AM EDT capsule 20 TAKE ONE CAPSULE BY MOUTH TWICE A DAY FOR 10 DAYS TAKE ONE CAPSULE BY MOUTH TWICE A DAY FOR 10 DAYS SOLD : 06/02/2019 [facility] 20 mg 06/02/2019 12:00:00 AM EDT tablet 8 TAKE ONE TABLET BY MOUTH TWICE A DAY FOR 4 DAYS TAKE ONE TABLET BY MOUTH TWICE A DAY FOR 4 DAYS SOLD: 2019 [facility] Amoxicillin 875 MG / Clavulanate 125 MG Oral Tablet Am oxicillin/Clavulanate Potassium 05/23/2019 12:00:00 AM EST ORAL completed [facility] ([facility]) 875-125 mg 05/23/2019 12:00:00 AM EST tablet 20 TAKE ONE TABLET BY MOUTH TWICE A DAY DIRECTED FOR 10 DAYS TAKE ONE TABLET BY MOUTH TWICE A DAY DIRECTED FOR 10 DAYS SOLD: 05/23/2019 [facility] 5-325 mg 03/21/2019 12:00:00 AM EST tablet 40 TAKE 1-2 TABLETS BY MOUTH EVERY 4-6 HOURS NEEDED FOR PAIN AFTER SURGERY , MAXIMUM DAILY DOSE = 8 TABLETS TAKE 1-2 TABLETS BY MOUTH EVERY 4-6 HOUR S NEEDED FOR PAIN AFTER SURGERY , MAXIMUM DAILY DOSE = 8 TABLETS SOLD: 03/21/2019 [facility] 20 mg 03/03/2019 12:00:00 AM EST tablet 30 TAKE ONE TABLET BY MOUTH AT BEDTIME TAKE ONE TABLET BY MOUTH AT BEDTIME SOLD: 06/08/2019 [facility] 20 mg 03/03/2019 12:00:00 AM EST tablet 30 TAKE ONE TABLET BY MOUTH AT BEDTIME TAKE ONE TABLET BY MOUTH AT BEDTIME SOLD: 05/09/2019 [facility] 20 mg 03/03/2019 12:00:00 AM EST tablet 30 TAKE ONE TABLET BY MOUTH AT BEDTIME TAKE ONE TABLET BY MOUTH AT BEDTIME SOLD: 03/05/2019 [facility] 20 mg 03/03/2019 12:00:00 AM EST tablet 30 TAKE ONE TABLET BY MOUTH AT BEDTIME TAKE ONE TABLET BY MOUTH AT BEDTIME SOLD: 04/08/2019 [facility] 2 mg 02/19/2019 12:00:00 AM EST tablet 60 TAKE 1 TO 2 TABLETS BY MOUTH ONCE DAILY AT BEDTIME NEEDED TAKE 1 TO 2 TABLETS BY MOUTH ONCE DAILY AT BEDTIME NEEDED SOLD: 05/09/2019 [facility] 50 mcg/actuation 02/19/2019 12:00:00 AM EST spray,suspension 16 SPRAY ONE SPRAY IN EACH NOSTRIL TWICE A DAY SPRAY ONE SPRAY IN EACH NOSTRIL TWICE A DAY SOLD: 05/09/2019 [facility] 2 mg 02/19/2019 12:00:00 AM EST tablet 60 TAKE 1 TO 2 TABLETS BY MOUTH ONCE DAILY AT BEDTIME NEEDED TAKE 1 TO 2 TABLETS BY MOUTH ONCE DAILY AT BEDTIME NEEDED SOLD: 04/08/2019 [facility] 2 mg 02/19/2019 12:00:00 AM EST tablet 60 TAKE 1 TO 2 TABLETS BY MOUTH ONCE DAILY AT BEDTIME NEEDED TAKE 1 TO 2 TABLETS BY MOUTH ONCE DAILY AT BEDTIME NEEDED SOLD: 02/24/2019 [facility] 50 mcg/actuation 02/19/2019 12:00:00 AM EST spray,suspension 16 SPRAY ONE SPRAY IN EACH NOSTRIL TWICE A DAY SPRAY ONE SPRAY IN EACH NOSTRIL TWICE A DAY SOLD: 04/08/2019 [facility] 50 mcg/actuation 02/19/2019 12:00:00 AM EST spray,suspension 16 SPRAY ONE SPRAY IN EACH NOSTRIL TWICE A DAY SPRAY ONE SPRAY IN EACH NOSTRIL TWICE A DAY SOLD: 06/08/2019 [facility] 50 mcg/actuation 02/19/2019 12:00:00 AM EST spray,suspension 16 SPRAY ONE SPRAY IN EACH NOSTRIL TWICE A DAY SPRAY ONE SPRAY IN EACH NOSTRIL TWICE A DAY SOLD: 02/24/2019 [facility] 50 mg 02/18/2019 12:00:00 AM EST tablet 60 TAKE ONE TABLET BY MOUTH TWICE A DAY NEEDED, MAXIMUM DAILY DOSE = TWO TABLETS TAKE ONE TABLET BY MOUTH TWICE A DAY NEEDED, MAXIMUM DAILY DOSE = TWO TABLETS SOLD: 04/08/2019 [facility] 50 mg 02/18/2019 12:00:00 AM EST tablet 60 TAKE ONE TABLET BY MOUTH TWICE A DAY NEEDED, MAXIMUM DAILY DOSE = TWO TABLETS TAKE ONE TABLET BY MOUTH TWICE A DAY NEEDED, MAXIMUM DAILY DOSE = TWO TABLETS SOLD: 05/09/2019 [facility] 50 mg 02/18/2019 12:00:00 AM EST tablet 60 TAKE ONE TABLET BY MOUTH TWICE A DAY NEEDED, MAXIMUM DAILY DOSE = TWO TABLETS TAKE ONE TABLET BY MOUTH TWICE A DAY NEEDED, MAXIMUM DAILY DOSE = TWO TABLETS SOLD: 02/24/2019 [facility] 20 mg 01/01/2019 12:00:00 AM EDT tablet 30 TAKE ONE TABLET BY MOUTH EVERY DAY TAKE ONE TABLET BY MOUTH EVERY DAY SOLD: 02/06/2019 [facility] Insurance Providers Payer name Policy type / Coverage type Policy ID Covered constitution party ID Covered constitution party's relationship to pope Policy Pope Plan Information [facility] [id number] SP [id number] [facility] O [id number] S [id number] Ghi FHP-(DO Not Use) Medigap Part B [id number] Self [id number] [facility] Commercial [id number] Self [id number] Ghi/Emblem HLTH (pr) Medigap Part B [id number] Family Depende nt [id number] Ghi FHP-(DO Not Use) Medigap Part B [id number] Self [id number] [facility] Commercial [id number] Self [id number] Ghi FHP-(DO Not Use) Medigap Part B [id number] Self [id number] [facility] Commercial [id number] Self [id number] ANSI-Commercial [id number] ANSI-Not a Secondary Insurance [id number] ANSI-Medicaid [id number] Ghi FHP-(DO Not Use) Medigap Part B [id number] Self [id number] [facility] Commercial [id number] Self [id number] Ghi FHP-(DO Not Use) Medigap Part B [id number] Self [id number] [facility] Commercial [id number] Self [id number] Ghi FHP-(DO Not Use) Medigap Part B [id number] Self [id number] [facility] Plan Commercial [id number] Self [id number] [facility] Health Maintenance Organization (HMO) [id number] Self [id number] Ghi FHP-(DO Not Use) Medigap Part B [id number] Self [id number] [facility] Plan Commercial [id number] Self [id number] Ghi FHP-(DO Not Use) Medigap Part B [id number] Self [id number] [facility] Plan Commercial [id number] Self [id number] Ghi FHP-(DO Not Use) Medigap Part B [id number] Self [id number] [facility] Plan Commercial [id number] Self [id number] ANSI-Commercial [id number] ANSI-Not a Secondary Insurance [id number] ANSI-Medicaid [id number] ANSI-Commercial [id number] ANSI-Medicaid [id number] ANSI-Not a Secondary Insurance [id number] ANSI-Medicaid [id number] ANSI-Commercial [id number] ANSI-Not a Secondary Insurance [id number] ON LICENSE OF [facility]AN [facility] [id number] SP [id number] Ghi FHP-(DO Not Use) Medigap Part B [id number] Self [id number] [facility] Commercial [id number] Self [id number] Ghi FHP-(DO Not Use) Medigap Part B [id number] Self [id number] [facility] Commercial [id number] Self [id number] ANSI-Medicaid [id number] ANSI-Not a Secondary Insurance [id number] ANSI-Commercial [id number] ANSI-Commercial [id number] ANSI-Not a Secondary Insurance [id number] ANSI-Medicaid [id number] ANSI-Not a Secondary Insurance [id number] ANSI-Commercial [id number] ANSI-Medicaid -[id number] ANSI-Medicaid [id number] ANSI-Commercial [id number] ANSI-Not a Secondary Insurance [id number] ANSI-Not a Secondary Insurance [id number] ANSI-Commercial [id number] ANSI-Medicaid [id number] ANSI-Medicaid [id number] ANSI-Not a Secondary Insurance [id number] ANSI-Commercial [id number] ANSI-Medicaid [id number] ANSI-Not a Secondary Insurance [id number] ANSI-Commercial [id number] ANSI-Commercial [id number] ANSI-Medicaid [id number] ANSI-Not a Secondary Insurance [id number] ANSI-Commercial [id number] ANSI-Not a Secondary Insurance [id number] ANSI-Medicaid [id number] Ghi FHP-(DO Not Use) Medigap Part B [id number] Self [id number] [facility] Commercial [id number] Self [id number] [facility] I [id number] Self [id number] ANSI-Medicaid [id number] ANSI-Not a Secondary Insurance [id number] ANSI-Commercial [id number] ON LICENSE OF [facility] [id number] SP [id number] SELF PAY ONLY - SP1 [id number] SP [id number] MEDICAID M [id number] Self [id number] [facility] I [id number] Self [id number] [facility] I [id number] Self [id number] [facility] Health Maintenance Organization (HMO) [id number] Self [id number] ON LICENSE OF [facility] COMMUNITY PLAN MCDO [id number] SP [id number] [facility] I [id number] Self [id number] MEDICAID M [id number] Self [id number] [facility] I [id number] Self [id number] [facility] I [id number] Self [id number] [employer] [place] [id number] [place] [id number] MEDICAID [id number] SP [id number] SELF PAY UNAVAILABLE SP UNAVAILA BLE [id number] Problems, Conditions, and Diagnoses Code Display Name Description Problem Type Effective Dates Data Source(s) E04.1 [id number] Thyroid nodule Problem 08/08/2019 12:00:00 A M EDT eCW1 ([facility]cludes [facility]) E04.1 [id number] Thyroid nodule Problem 08/08/2019 12:00:00 A M EDT eCW1 (Count Includes [facility]) Z12.4 [id number] Cervical cancer screening Problem 07/08/2019 12:00:00 AM EDT eCW1 (Count Includes [facility]) R73.01 [id number] IFG (impaired fasting glucose) Problem 07/08/2019 12:00:00 AM EDT eCW1 (Count Includes [facility]) Z12.4 [id number] Cervical cancer screening Problem 07/08/2019 12:00:00 AM EDT eCW1 (Count Includes [facility]) R73.01 [id number] IFG (impaired fasting glucose) Problem 07/08/2019 12:00:00 AM EDT eCW1 (Count Includes [facility]) M17.0 [id number] Primary osteoarthritis of both knees Prob karon 02/18/2019 12:00:00 AM EST eCW1 (Count Includes [facility]) S46.812A [id number] Traumatic tear of mishra praspinatus tendon of left shoulder, initial encounter Problem 02/18/2019 12:00:00 AM EST eCW1 ([facility] hospital) M17.0 991091473 Primary osteoarthritis of both knees Prob karon 02/18/2019 12:00:00 AM EST eCW1 (Count Includes [facility]) S46.812A [id number] Traumatic tear of mishra praspinatus tendon of left shoulder, initial encounter Problem 02/18/2019 12:00:00 AM EST eCW1 (Critical access hospital) Surgeries/Procedures Procedure Description Date Indications Data Source(s) INJECTION 1 TENDON SHEATH/LIGAMENT APONEUROSIS 021 12:00:00 AM EST [facility] ([facility] ) MRI Upper Extremity Any Joint 03/24/2020 12:00:[address] [facility] ([facility] ) RADEX ELBOW COMPLETE MINIMUM 3 VIEWS 03/17/2020 12:00: 00 AM EST [facility] ([facility] ) X-Ray Hip Unilateral With Pelvis 2-3 Views 03/17/2020 12:00:00 AM EST [facility] ([facility]) RADEX SHOULDER COMPLETE MINIMUM 2 VIEWS 01/27/2020 12: 00:00 AM EST [facility] ([facility]) ARTHROCENTESIS ASPIR&/INJECTION MAJOR JT/BURSA 12:00:00 AM EDT [facility] ([facility]) INJECTION 1 TENDON SHEATH/LIGAMENT APONEUROSIS 12:00:00 AM EDT [facility] ([facility] ) THERAPEUTIC PX 1/> AREAS EACH 15 MIN EXERCISES 12:00:00 AM EDT [facility] ([facility]) THERAPEUTIC PX 1/> AREAS EACH 15 MIN EXERCISES 12:00:00 AM EDT [facility] ([facility]) APPLICATION MODALITY 1/> AREAS HOT/COLD PACKS 08/15/19 12:00:00 AM EDT [facility] ([facility]) THERAPEUTIC PX 1/> AREAS EACH 15 MIN EXERCISES 12:00:00 AM EDT [facility] ([facility]) THERAPEUTIC PX 1/> AREAS EACH 15 MIN EXERCISES 12:00:00 AM EDT [facility] ([facility]) APPLICATION MODALITY 1/> AREAS HOT/COLD PACKS 08/05/19 20 12:00:00 AM EDT [facility] ([facility]) APPL MODALITY 1/> AREAS ELEC STIMJ EA 15 MIN 0 12:00:00 AM EDT [facility] ([facility]) THERAPEUTIC PX 1/> AREAS EACH 15 MIN EXERCISES 12:00:00 AM EDT [facility] ([facility]) APPLICATION MODALITY 1/> AREAS HOT/COLD PACKS 07/29/19 20 12:00:00 AM EDT [facility] ([facility]) APPL MODALITY 1/> AREAS ELEC STIMJ EA 15 MIN 0 12:00:00 AM EDT [facility] ([facility]) THERAPEUTIC PX 1/> AREAS EACH 15 MIN EXERCISES 12:00:00 AM EDT [facility] ([facility]) APPLICATION MODALITY 1/> AREAS HOT/COLD PACKS 07/25/19 20 12:00:00 AM EDT [facility] ([facility] ) APPL MODALITY 1/> AREAS ELEC STIMJ EA 15 MIN 0 12:00:00 AM EDT [facility] ([facility] ) THERAPEUTIC PX 1/> AREAS EACH 15 MIN EXERCISES 12:00:00 AM EDT [facility] ([facility] ) THERAPEUTIC PX 1/> AREAS EACH 15 MIN EXERCISES 12:00:00 AM EDT [facility] ([facility] ) THERAPEUTIC PX 1/> AREAS EACH 15 MIN EXERCISES 12:00:00 AM EDT [facility] ([facility] ) APPL MODALITY 1/> AREAS ELEC STIMJ EA 15 MIN 0 12:00:00 AM EDT [facility] ([facility] ) THERAPEUTIC PX 1/> AREAS EACH 15 MIN EXERCISES 12:00:00 AM EDT [facility] ([facility] ) APPLICATION MODALITY 1/> AREAS HOT/COLD PACKS 07/10/19 20 12:00:00 AM EDT [facility] ([facility] ) APPL MODALITY 1/> AREAS ELEC STIMJ EA 15 MIN 0 12:00:00 AM EDT [facility] ([facility] ) THERAPEUTIC PX 1/> AREAS EACH 15 MIN EXERCISES 12:00:00 AM EDT [facility] ([facility] ) APPL MODALITY 1/> AREAS ELEC STIMJ EA 15 MIN 0 12:00:00 AM EDT [facility] ([facility]) THERAPEUTIC PX 1/> AREAS EACH 15 MIN EXERCISES 12:00:00 AM EDT [facility] ([facility] ) APPLICATION MODALITY 1/> AREAS HOT/COLD PACKS 07/03/19 12:00:00 AM EDT [facility] ([facility]) APPL MODALITY 1/> AREAS ELEC STIMJ EA 15 MIN 0 12:00:00 AM EDT [facility] ([facility] ) THERAPEUTIC PX 1/> AREAS EACH 15 MIN EXERCISES 12:00:00 AM EDT [facility] ([facility] ) THERAPEUTIC PX 1/> AREAS EACH 15 MIN EXERCISES 12:00:00 AM EDT [facility] ([facility]) APPLICATION MODALITY 1/> AREAS HOT/COLD PACKS 06/19/19 12:00:00 AM EDT [facility] ([facility]) APPL MODALITY 1/> AREAS ELEC STIMJ EA 15 MIN 0 12:00:00 AM EDT [facility] ([facility]) THERAPEUTIC PX 1/> AREAS EACH 15 MIN EXERCISES 12:00:00 AM EDT [facility] ([facility]) APPLICATION MODALITY 1/> AREAS HOT/COLD PACKS 06/16/19 12:00:00 AM EDT [facility] ([facility]) APPL MODALITY 1/> AREAS ELEC STIMJ EA 15 MIN 0 12:00:00 AM EDT [facility] ([facility]) THERAPEUTIC PX 1/> AREAS EACH 15 MIN EXERCISES 12:00:00 AM EDT [facility] ([facility]) THERAPEUTIC PX 1/> AREAS EACH 15 MIN EXERCISES 12:00:00 AM EDT [facility] ([facility]) APPL MODALITY 1/> AREAS ELEC STIMJ EA 15 MIN 0 12:00:00 AM EDT [facility] ([facility]) APPLICATION MODALITY 1/> AREAS HOT/COLD PACKS 06/13/19 12:00:00 AM EDT [facility] ([facility]) APPLICATION MODALITY 1/> AREAS HOT/COLD PACKS 06/11/19 12:00:00 AM EDT [facility] ([facility]) APPL MODALITY 1/> AREAS ELEC STIMJ EA 15 MIN 0 12:00:00 AM EDT [facility] ([facility]) THERAPEUTIC PX 1/> AREAS EACH 15 MIN EXERCISES 12:00:00 AM EDT [facility] ([facility]) APPLICATION MODALITY 1/> AREAS HOT/COLD PACKS 06/09/19 12:00:00 AM EDT [facility] ([facility]) APPL MODALITY 1/> AREAS ELEC STIMJ EA 15 MIN 0 12:00:00 AM EDT [facility] ([facility]) THERAPEUTIC PX 1/> AREAS EACH 15 MIN EXERCISES 12:00:00 AM EDT [facility] ([facility]) APPLICATION MODALITY 1/> AREAS HOT/COLD PACKS 05/21/19 20 12:00:00 AM EST [facility] ([facility]) APPL MODALITY 1/> AREAS ELEC STIMJ EA 15 MIN 0 12:00:00 AM EST [facility] ([facility]) THERAPEUTIC PX 1/> AREAS EACH 15 MIN EXERCISES 12:00:00 AM EST [facility] ([facility]) THERAPEUTIC PX 1/> AREAS EACH 15 MIN EXERCISES 12:00:00 AM EST [facility] ([facility]) APPL MODALITY 1/> AREAS ELEC STIMJ EA 15 MIN 0 12:00:00 AM EST [facility] ([facility]) APPLICATION MODALITY 1/> AREAS HOT/COLD PACKS 05/19/19 20 12:00:00 AM EST [facility] ([facility]) APPLICATION MODALITY 1/> AREAS HOT/COLD PACKS 05/14/19 20 12:00:00 AM EST [facility] ([facility]) APPL MODALITY 1/> AREAS ELEC STIMJ EA 15 MIN 0 12:00:00 AM EST [facility] ([facility]) THERAPEUTIC PX 1/> AREAS EACH 15 MIN EXERCISES 12:00:00 AM EST [facility] ([facility]) APPLICATION MODALITY 1/> AREAS HOT/COLD PACKS 05/12/19 20 12:00:00 AM EST [facility] ([facility]) APPL MODALITY 1/> AREAS ELEC STIMJ EA 15 MIN 0 12:00:00 AM EST [facility] ([facility]) THERAPEUTIC PX 1/> AREAS EACH 15 MIN EXERCISES 12:00:00 AM EST [facility] ([facility]) THERAPEUTIC PX 1/> AREAS EACH 15 MIN EXERCISES 12:00:00 AM EST [facility] ([facility]) APPL MODALITY 1/> AREAS ELEC STIMJ EA 15 MIN 0 12:00:00 AM EST [facility] ([facility]) APPLICATION MODALITY 1/> AREAS HOT/COLD PACKS 05/09/19 20 12:00:00 AM EST [facility] ([facility]) APPLICATION MODALITY 1/> AREAS HOT/COLD PACKS 05/07/19 20 12:00:00 AM EST [facility] ([facility]) APPL MODALITY 1/> AREAS ELEC STIMJ EA 15 MIN 0 12:00:00 AM EST [facility] ([facility]) THERAPEUTIC PX 1/> AREAS EACH 15 MIN EXERCISES 12:00:00 AM EST [facility] ([facility]) APPLICATION MODALITY 1/> AREAS HOT/COLD PACKS 05/05/19 20 12:00:00 AM EST [facility] ([facility]) APPL MODALITY 1/> AREAS ELEC STIMJ EA 15 MIN 0 12:00:00 AM EST [facility] ([facility]) THERAPEUTIC PX 1/> AREAS EACH 15 MIN EXERCISES 12:00:00 AM EST [facility] ([facility]) APPLICATION MODALITY 1/> AREAS HOT/COLD PACKS 05/02/19 12:00:00 AM EST [facility] ([facility]) APPL MODALITY 1/> AREAS ELEC STIMJ EA 15 MIN 0 12:00:00 AM EST [facility] ([facility] ) THERAPEUTIC PX 1/> AREAS EACH 15 MIN EXERCISES 12:00:00 AM EST [facility] ([facility]) THERAPEUTIC PX 1/> AREAS EACH 15 MIN EXERCISES 12:00:00 AM EST [facility] ([facility]) APPL MODALITY 1/> AREAS ELEC STIMJ EA 15 MIN 0 12:00:00 AM EST [facility] ([facility]) APPLICATION MODALITY 1/> AREAS HOT/COLD PACKS 04/30/19 20 12:00:00 AM EST [facility] ([facility]) APPLICATION MODALITY 1/> AREAS HOT/COLD PACKS 04/28/19 20 12:00:00 AM EST [facility] ([facility]) APPL MODALITY 1/> AREAS ELEC STIMJ EA 15 MIN 0 12:00:00 AM EST [facility] ([facility]) THERAPEUTIC PX 1/> AREAS EACH 15 MIN EXERCISES 12:00:00 AM EST [facility] ([facility]) APPLICATION MODALITY 1/> AREAS HOT/COLD PACKS 04/23/19 20 12:00:00 AM EST [facility] ([facility] APPL MODALITY 1/> AREAS ELEC STIMJ EA 15 MIN 0 12:00:00 AM EST [facility] ([facility] ) THERAPEUTIC PX 1/> AREAS EACH 15 MIN EXERCISES 12:00:00 AM EST [facility] ([facility] APPLICATION MODALITY 1/> AREAS HOT/COLD PACKS 04/21/19 20 12:00:00 AM EST [facility] ([facility] ) APPL MODALITY 1/> AREAS ELEC STIMJ EA 15 MIN 0 12:00:00 AM EST [facility] ([facility] ) THERAPEUTIC PX 1/> AREAS EACH 15 MIN EXERCISES 12:00:00 AM EST [facility] ([facility] ) THERAPEUTIC PX 1/> AREAS EACH 15 MIN EXERCISES 12:00:00 AM EST [facility] ([facility] ) APPL MODALITY 1/> AREAS ELEC STIMJ EA 15 MIN 0 12:00:00 AM EST [facility] ([facility] ) APPLICATION MODALITY 1/> AREAS HOT/COLD PACKS 04/18/19 20 12:00:00 AM EST [facility] ([facility] ) APPLICATION MODALITY 1/> AREAS HOT/COLD PACKS 04/16/19 20 12:00:00 AM EST [facility] ([facility] ) APPL MODALITY 1/> AREAS ELEC STIMJ EA 15 MIN 0 12:00:00 AM EST [facility] ([facility] ) THERAPEUTIC PX 1/> AREAS EACH 15 MIN EXERCISES 12:00:00 AM EST [facility] ([facility]) APPLICATION MODALITY 1/> AREAS HOT/COLD PACKS 04/14/19 20 12:00:00 AM EST [facility] ([facility] ) APPL MODALITY 1/> AREAS ELEC STIMJ EA 15 MIN 0 12:00:00 AM EST [facility] ([facility] ) THERAPEUTIC PX 1/> AREAS EACH 15 MIN EXERCISES 12:00:00 AM EST [facility] ([facility] Physical Therapy Eval - Low Complexity 04/10/2019 12:0 0:00 AM EST [facility] ([facility] ) Arthroscopy Shoulder Remove Loose/Foreign Body Dist Clavicul ectom 03/20/2019 12:00:00 AM EST [facility] ([facility]) Arthroscopy Shoulder Surgical With Rotator Cuff Repair 03/20/2019 12:00:00 AM EST [facility] ([facility]) RIV4 VACC RECOMBINANT DNA IM 02/18/2019 12:00:00 AM ES T eCW1 (Count Includes The [facility]) IMMUNIZATION ADMIN 02/18/2019 12:00:00 AM EST eCW1 (Count Includes [facility]) Results ID Date Data Source [id number] 04/02/2020 10:00:00 AM EST [facility] Name Value Range Interpretation Code Description Data Kim rce(s) Supporting Document(s) SARS coronavirus 2 RNA Not Detected [facility] [place] This lab was ordered by [facility] and reported by [facility]. ID Date Data Source [id number] 01/08/2020 12:00:00 AM EDT [facility] ology Imaging Alethea Segovia Pa-C Patient Name: LACY ELLSWORTH [facility] Date of : 1965 Date of Exam: 01/08/2020JEAN-PAUL Lynn [id number]#: Fax: [id number] EXAM: MRI SHOULDER LEFT W/O&W/CONTRAST ARTHROGRAMCLINICAL INFORMATION: Contusion left shoulder, rule out re-tear.Pre and post contrast 3T MRI of the left shoulder with shoulder MRIarthrography was performed utilizing various sequences. The glenohumeralinjection was performed by MIGUEL ANGEL Mcnulty.There are no prior shoulder MRI arthrograms to review. A low [facility] MRI examination of 04/22/2018 has been submitted for review.On 03/20/2019, the patient underwent arthroscopic biceps tenotomy,arthroscopic rotator cuff repair secondary to full thickness tear of thesupraspinatus tendon, and distal clavicle excision.The pre-injection portion of the examination shows post operative changesat the acromioclavicular joint. There is a moderate amount of fluid seendeep to the post operative bed and acromion process. The acromion processhas a Type II/III appearance. There is significant patchy and linear [id number] seen in the supraspinatus tendon. There is supraspinatusmuscle atrophy. There is mild patchy T2 hypersignal seen in thesubscapularis tendon. There is no glenohumeral joint effusion. There arehypersignal changes seen in the superior labrum. There is magneticsusceptibility artifact seen in the proximal humerus due to the previousoperative procedure. There is no abnormal fluid in the subcoracoid recess. The post injection portion of the examination shows undersurface fraying ofthe supraspinatus tendon with some of the injected fluid approaching thesuperior surface of that tendon. This is seen in a linear fashion. Thereis evidence of truncation of the superior labrum. The glenohumeralligaments are intact.IMPRESSION:1. There is fluid seen deep to the post operative acromioclavicular bedwhich is rather significant in appearance and somewhat septated. The fluidcontinues anteriorly and posteriorly deep to the acromioclavicular postoperative bed. The acromion process maintains a downsloped appearance.2. There is evidence of a partial full thickness or near full thicknesstear of the supraspinatus tendon with fraying of the undersurface asdescribed above.3. There are some labral morphologic changes but I see no definiteevidence of a discrete tear.4. There is mild T2 hypersignal in the subscapularis tendon suggestive oftendinitis/tendinosis. There is no musculotendinous retraction or evidenceof a complete tear.5. Other findings as described above.Accredited by the [employer] in MR.JONATHAN Hernandez/Leah martines for referring BROOKS ELLSWORTH to our office. Electronically Signed - PAT PATIÑO DO 01/15/20 13:59 Name Value Range Interpretation Code Description Data Kim rce(s) Supporting Document(s) ID Date Data Source [id number] 01/08/2020 12:00:00 AM EDT [facility] Imaging Alethea Segovia Pa-C Patient Name: LACY ELLSWORTH [facility] Date of : 1965 [facility]: [facility] [id number] Fax: [id number] EXAM: INJECTION PROCEDURE FOR SHOULDER ARTHROGRAMCLINICAL INFORMATION: Contusion left shoulder.The procedure was performed by Jina Holman [facility], under the directsupervision of Dr. Patiño.The benefits and risks including but not limited to pain, infection,bleeding and anaphylaxis were explained to the patient as well as thepossibility of an unsuccessful procedure, and an informed consent wasobtained. Directly prior to the start of the procedure, a formal time-outwas completed.The left glenohumeral joint space was localized using fluoroscopicguidance. The skin was prepped and draped in a sterile fashion.Approximately 5 cc of 1% Lidocaine 10 mg/ml was used as a local anesthetic. Using fluoroscopic guidance, a #22 gauge spinal needle was inserted andadvanced into the left glenohumeral joint space. Approximately 2 cc ofOmnipaque 300 mg/ml was injected to verify placement. 12 cc of a solutioncontaining 20 cc of sterile saline and 0.15 cc of ProHance was injectedinto the joint space. The needle was removed and the patient was taken toMRI for post procedural imaging.The patient tolerated the procedure well and there were no immediatecomplications.Fluoroscopic images are performed with last image hold technology. Theseimages require no additional radiation to acquire.Fluoroscopy time was 16 seconds at 3 pulses/second. This is equal to 4seconds continuous fluoroscopy time which is a 75% reduction in radiation.Dictated by Jina Holman, [facility], with Dr. Patiño.Pat Patiño, JONATHAN/Leah you for referring BROOKS ELSLWORTH to our office. Electronically Signed - PAT PATIÑO DO 01/12/20 15:36 Name Value Range Interpretation Code Description Data Kim rce(s) Supporting Document(s) ID Date Data Source [id number] 02/11/2019 08:59:00 AM EST [facility] ([facility]) Name Value Range Interpretation Code Description Data Kim rce(s) Supporting Document(s) Referral <pending> [facility] ([facility]) Procedure Social History Code Duration Value Status Description Data Source(s ) Smoking 10/07/2019 12:00:00 AM EDT Patient has never smoked co mpleted Patient has never smoked [facility] ([facility] [place] Smoking 08/08/2019 12:00:00 AM EDT Never Smoker completed Never S moker eCW1 (Count Includes [facility]) Smoking 08/08/2019 12:00:00 AM EDT Never Smoker completed Never S moker eCW1 (Count Includes [facility]) Smoking 08/08/2019 12:00:00 AM EDT Never Smoker completed Never S moker eCW1 (Count Includes [facility]) Smoking 08/08/2019 12:00:00 AM EDT Never Smoker completed Never S moker eCW1 (Count Includes [facility]) Smoking 08/08/2019 12:00:00 AM EDT Never Smoker completed Never S moker eCW1 (Count Includes [facility]) Vital Signs ID Date Data Source UNK Name Value Range Interpretation Code Description Data Source(s) Body temperature 96.9 [degF] 96.9 [degF] [facility] ([facility]) Body surface area Derived from formula 1.98 m2 1.98 m2 [facility] ([facility]) Body weight 88.565 kg 88.565 kg [facility] ([facility]) [place] body weight 130 [lb_av] 130 [lb_av] MEDEN T ([facility]) Body mass index (BMI) [Ratio] 31.5 kg/m2 31.5 k g/m2 [facility] ([facility]) Body weight 195.25 [lb_av] 195.25 [lb_av] MEDEN T ([facility]) Body height 66 [in_i] 66 [in_i] [facility] ([facility]) 5'6" Diastolic blood pressure 78 mm[Hg] 78 mm[Hg] [facility] ([facility]) Systolic blood pressure 140 mm[Hg] 140 mm[Hg] M EDENT ([facility]) Body mass index (BMI) [Ratio] 29.0 kg/m2 29.0 k g/m2 [facility] ([facility]) Body weight 185.00 [lb_av] 185.00 [lb_av] MEDEN T ([facility]) Body height 67 [in_i] 67 [in_i] [facility] ([facility]) 5'7" Body temperature 96.9 [degF] 96.9 [degF] [facility] ([facility]) Body surface area Derived from formula 1.97 m2 1.97 m2 [facility] ([facility]) Body weight 87.091 kg 87.091 kg [facility] ([facility]) [place] body weight 130 [lb_av] 130 [lb_av] MEDEN T ([facility]) Body mass index (BMI) [Ratio] 31.0 kg/m2 31.0 k g/m2 [facility] ([facility]) Body weight 192.00 [lb_av] 192.00 [lb_av] MEDEN T ([facility]) Body height 66 [in_i] 66 [in_i] [facility] ([facility]) 5'6" Diastolic blood pressure 66 mm[Hg] 66 mm[Hg] [facility] ([facility], ) Systolic blood pressure 132 mm[Hg] 132 mm[Hg] M EDENT ([facility], ) Body temperature 96.8 [degF] 96.8 [degF] [facility] ([facility]) Body mass index (BMI) [Ratio] 29.9 kg/m2 29.9 k g/m2 [facility] ([facility] [place]) Body height 66 [in_i] 66 [in_i] [facility] ([facility]) 5'6" Body weight 185.00 [lb_av] 185.00 [lb_av] MEDEN T ([facility], [facility]) Body temperature 98.4 [degF] 98.4 [degF] [facility] ([facility], [facility]) Oxygen saturation in Arterial blood by Pulse oximetry 99 % 99 % [facility] ([facility]) Heart rate 63 /min 63 /min [facility] ([facility]) Diastolic blood pressure 89 mm[Hg] 89 mm[Hg] [facility] ([facility]) Systolic blood pressure 137 mm[Hg] 137 mm[Hg] [facility] Body mass index (BMI) [Ratio] 29.9 kg/m2 29.9 k g/m2 [facility] ([facility]) Body height 66 [in_i] 66 [in_i] [facility] ([facility] [place]) 5'6" Body weight 185.00 [lb_av] 185.00 [lb_av] MEDEN T ([facility], [facility]) Body temperature 98.5 [degF] 98.5 [degF] [facility] ([facility]) Oxygen saturation in Arterial blood by Pulse oximetry 98 % 98 % [facility] ([facility]) Respiratory rate 16 /min 16 /min [facility] ( [facility]) Heart rate 81 /min 81 /min [facility] ([facility]) Diastolic blood pressure 91 mm[Hg] 91 mm[Hg] [facility] ([facility]) Systolic blood pressure 138 mm[Hg] 138 mm[Hg] M EDENT ([facility]) Body surface area Derived from formula 1.98 m2 1.98 m2 [facility] ([facility]) Body weight 88.452 kg 88.452 kg [facility] ([facility]) [place] body weight 130 [lb_av] 130 [lb_av] MEDEN T ([facility]) Body mass index (BMI) [Ratio] 31.5 kg/m2 31.5 k g/m2 [facility] ([facility]) Body weight 195.00 [lb_av] 195.00 [lb_av] MEDEN T ([facility]) Body height 66 [in_i] 66 [in_i] [facility] ([facility]) 5'6" Diastolic blood pressure 80 mm[Hg] 80 mm[Hg] eCW1 (Count Includes [facility]) Systolic blood pressure 132 mm[Hg] 132 mm[Hg] e CW1 (Count Includes [facility]) Body temperature 96.8 [degF] 96.8 [degF] eCW1 ( Count Includes [facility]) Respiratory rate 20 /min 20 /min W1 ([facility]) Heart rate 101 /min 101 /min W1 ([facility]) Body mass index (BMI) [Ratio] 28.26 kg/m2 28.26 kg/m2 eCW1 (Count Includes [facility]) Body height 70 [in_i] 70 [in_i] eCW1 ([facility]) Body weight 197 [lb_av] 197 [lb_av] eCW1 ([facility]) Body mass index (BMI) [Ratio] 29.9 kg/m2 29.9 k g/m2 [facility] ([facility]) Body height 66 [in_i] 66 [in_i] [facility] ([facility]) 5'6" Body weight 185.00 [lb_av] 185.00 [lb_av] MEDEN T ([facility]) Body temperature 98.0 [degF] 98.0 [degF] [facility] ([facility]) Oxygen saturation in Arterial blood by Pulse oximetry 99 % 99 % [facility] ([facility]) Respiratory rate 14 /min 14 /min [facility] ( [facility]) Heart rate 88 /min 88 /min [facility] ([facility]) Diastolic blood pressure 90 mm[Hg] 90 mm[Hg] [facility] ([facility]) Systolic blood pressure 147 mm[Hg] 147 mm[Hg] M EDENT ([facility]) Body mass index (BMI) [Ratio] 30.8 kg/m2 30.8 k g/m2 [facility] Body height 65 [in_i] 65 [in_i] MED[facility] ([facility] [place]) 5'5" Body weight 185.00 [lb_av] 185.00 [lb_av] MEDEN T ([facility]) Body temperature 98.0 [degF] 98.0 [degF] [facility] ([facility]) Oxygen saturation in Arterial blood by Pulse oximetry 98 % 98 % [facility] ([facility]) Respiratory rate 17 /min 17 /min [facility] ( [facility]) Heart rate 80 /min 80 /min [facility] ([facility]) Diastolic blood pressure 92 mm[Hg] 92 mm[Hg] [facility] ([facility]) Systolic blood pressure 148 mm[Hg] 148 mm[Hg] M EDENT ([facility]) Body temperature 99.1 [degF] 99.1 [degF] [facility] ([facility]) Diastolic blood pressure 82 mm[Hg] 82 mm[Hg] eCW1 (Count Includes [facility]) Systolic blood pressure 130 mm[Hg] 130 mm[Hg] e CW1 (Count Includes [facility]) Body temperature 98.7 [degF] 98.7 [degF] eCW1 ( Count Includes [facility]) Respiratory rate 18 /min 18 /min eCW1 ([facility]) Heart rate 82 /min 82 /min eCW1 ([facility]) Body mass index (BMI) [Ratio] 26.89 kg/m2 26.89 kg/m2 eCW1 (Count Includes [facility]) Body height 70 [in_us] 70 [in_us] eCW1 ([facility] hospital) Body weight Measured 187.4 [lb_av] 187.4 [lb_av ] eCW1 (Count Includes [facility]) Body mass index (BMI) [Ratio] 20.4 kg/m2 20.4 k g/m2 [facility] ([facility] Body weight 129.38 [lb_av] 129.38 [lb_av] MEDEN T ([facility]) Body height 66.75 [in_i] 66.75 [in_i] [facility] ([facility]) 5'6.75" Body temperature 97.4 [degF] 97.4 [degF] [facility] ([facility] ) Patient Treatment Plan of Care Planned Activity Planned Date Details Description Data Source (s) Levofloxacin 500 MG Oral Tablet 06/20/2019 12:00:00 AM EDT eCW1 (Count Includes [facility])
--- OUTSIDE RECORDS SUMMARY | 2020-04-07 09:08 | CCD | Continuity of Care Document ---
Author Author Brooks RAINES MD Organization Unknown Address [address] [place] [address], [address] [place] [address] Phone [phone] Care Team Providers Care Braille And Talking Books Clerk Name Role Phone Shanita Nick MD AUTM Javed Sykes MD AUTM [phone] Ignacio Goyal AUTM [phone] Problems Description No Active Problems Social History Type Date Description Comments Sex Unknown ETOH Use Rarely consumes alcohol Tobacco Use Start: Unknown Denies Smoking Smoking Status Reviewed: 01/16/19 Denies Smoking Allergies, Adverse Reactions, Alerts Active Allergies Reaction Severity Comments Date Morphine 02/18/2015 Medications Active Medications SIG Qnty Indications Ordering Provide r Date Vitamin C 500mg Capsules 1 by mouth [...] Available Vital Signs Date Vital Result Comment 03/25/2019 10:43am Body Temperature 99.1 F 02/06/2019 4:22pm Body Temperature 97.4 F Height 66.75 inches 5'6.75" Weight 129.38 lb BMI (Body Mass Index) 20.4 kg/m2 Results Description No Information Available Procedures Date Code Description Status 01/15/2020 81081 Inject/Drain Joint/Bursa Major C ompleted 08/27/2019 49185 Therapeutic Procedure, Each 15 M inutes Completed 08/20/2019 03904 Therapeutic Procedure, Each 15 M inutes Completed 08/15/2019 44130 Therapeutic Procedure, Each 15 M inutes Completed 08/15/2019 44627 Hot Or Cold Packs Completed 08/08/2019 26737 Therapeutic Procedure, Each 15 M inutes Completed 08/05/2019 82593 Therapeutic Procedure, Each 15 M inutes Completed 08/05/2019 94283 Electrical Stimulati on Manual, Each 15 Min, Constant Attendance Completed 08/05/2019 38986 Hot Or Cold Packs Completed 07/29/2019 20311 Therapeutic Procedure, Each 15 M inutes Completed 07/29/2019 21460 Electrical Stimulati on Manual, Each 15 Min, Constant Attendance Completed 07/29/2019 65466 Hot Or Cold Packs Completed Medical Devices Description No Information Available Encounters Type Date Location Provider Dx Diagnosis Office Visit 01/15/2020 2:00p [place] Jareth Raines MD M2 5.412 Effusion, left shoulder M25.512 Pain in left shoulder Assessments Date Code Description Provider 01/15/2020 M25.412 Effusion, left shoulder Jareth Raines MD 01/15/2020 M25.512 Pain in left shoulder Jareth faria MD 12/15/2019 M25.512 Pain in left shoulder Alethea Segovia PA-C 08/27/2019 Z47.89 Encounter for other orthopedic a ftercare Renee Kristin, P.T.A. 08/20/2019 Z47.89 Encounter for other orthopedic a ftercare Renee Kristin, P.T.A. 08/15/2019 Z47.89 Encounter for other orthopedic a ftercare Wendy Medeiros PTA 08/08/2019 Z47.89 Encounter for other orthopedic a ftercare Renee Kristin, P.T.A. 08/05/2019 Z47.89 Encounter for other orthopedic a JULIANA Olivas 07/29/2019 Z47.89 Encounter for other orthopedic a JULIANA Olivas Plan of Treatment 01/15/2020 - Jareth Raines MD* M25.412 Effusion, left shoulder* Follow up:* in 6 weeks with DPV for left shoulder recheck please. * M25.512 Pain in left shoulder Functional Status Description No Information Available Mental Status Description No Information Available Referrals Description No Information Available
--- OUTSIDE RECORDS SUMMARY | 2020-04-07 09:08 | CCD | Continuity of Care Document ---
Author Author Brooks RAINES MD Organization Unknown Address [address] [place] [address], [address] [place] [address] Phone [phone] Care Team Providers Care Electric Blanket Wirer Name Role Phone Shanita Nick MD AUTM Javed Sykes MD AUTM [phone] Ignacio Goyal AUTM [phone] Problems Description No Active Problems Social History [...] Available Procedures Date Code Description Status 01/27/2020 61330 X-Ray Shoulder Complete Complete d 01/15/2020 75628 Inject/Drain Joint/Bursa Major C ompleted 08/27/2019 55161 Therapeutic Procedure, Each 15 M inutes Completed 08/20/2019 10845 Therapeutic Procedure, Each 15 M inutes Completed 08/15/2019 47605 Therapeutic Procedure, Each 15 M inutes Completed 08/15/2019 39886 Hot Or Cold Packs Completed 08/08/2019 56897 Therapeutic Procedure, Each 15 M inutes Completed 08/05/2019 90442 Therapeutic Procedure, Each 15 M inutes Completed 08/05/2019 27634 Electrical Stimulati on Manual, Each 15 Min, Constant Attendance Completed 08/05/2019 63984 Hot Or Cold Packs Completed 07/29/2019 90017 Therapeutic Procedure, Each 15 M inutes Completed 07/29/2019 45661 Electrical Stimulati on Manual, Each 15 Min, Constant Attendance Completed 07/29/2019 32246 Hot Or Cold Packs Completed Medical Devices Description No Information Available Encounters Type Date Location Provider Dx Diagnosis Office Visit 01/15/2020 2:00p [place] Jareth Raines MD M2 5.412 Effusion, left shoulder M25.512 Pain in left shoulder Assessments Date Code Description Provider 01/27/2020 M25.412 Effusion, left shoulder Jareth Raines MD 01/27/2020 M25.512 Pain in left shoulder Jareth faria MD 01/27/2020 S40.012A Contusion of left shoulder, init ial encounter Jareth Raines MD 01/15/2020 M25.412 Effusion, left shoulder Jareth Raines MD 01/15/2020 M25.512 Pain in left shoulder Jareth faria MD 12/15/2019 M25.512 Pain in left shoulder Alethea Segoiva PA-C 08/27/2019 Z47.89 Encounter for other orthopedic a ftercare Renee Foster, P.T.A. 08/20/2019 Z47.89 Encounter for other orthopedic a ftercare Renee Foster, P.T.A. 08/15/2019 Z47.89 Encounter for other orthopedic a ftercare Wendy Medeiros, MERCHANT [employer]INER 08/08/2019 Z47.89 Encounter for other orthopedic a ftercare Renee Kristin, P.T.A. 08/05/2019 Z47.89 Encounter for other orthopedic a fterccaitlyn Son, CLAUST 07/29/2019 Z47.89 Encounter for other orthopedic a ftercare [facility] Plan of Treatment 01/27/2020 - Jareth Raines MD* M25.412 Effusion, left shoulder* Follow up:* f/u in 4 weeks * M25.512 Pain in left shoulder * S40.012A Contusion of left shoulder, initial encounter* New Medication:* Mobic 15 mg - 1 tab by mouth daily with food Functional Status Description No Information Available Mental Status Description No Information Available Referrals Description No Information Available
--- OUTSIDE RECORDS SUMMARY | 2020-04-07 09:08 | CCD ---
Author Author [facility] Organization [facility] Address Unknown Phone Unavailable Care Team Providers Care Brass Roller Name Role Phone Javed Sykes Unavailable PROBLEMS Type Condition ICD9-CM Code ZAE65-TY Code Onset Dates Condition S tatus SNOMED Code Notes Problem Eustachian tube dysfunction H69.80 Active 5671 3002 Problem Premature menopause E28.319 Active 255542353 Problem Asthma, mild intermittent J45.20 Active 180050 007 Problem Colon cancer screening Z12.11 Active 621600631 Problem Hypertension I10 Active 55066101 Problem Breast cancer screening Z12.39 Active 05760867 8 Problem Postlaminectomy syndrome, not elsewhere classified M96.1 Active 45216857 Problem Vitamin D deficiency E55.9 Active 16811752 Problem Overweight E66.3 Active 762318181 Problem Recurrent sinusitis J32.9 Active 358267264 Problem Situational depression F43.21 Active 48596716 Problem IFG (impaired fasting glucose) R73.01 Active 3 03593621 Problem Mixed hyperlipidemia E78.2 Active 893120702 Problem Allergic rhinitis J30.9 Active 92159463 Problem Thyroid nodule E04.1 Active 921851866 Problem Sacroiliitis, not elsewhere classified M46.1 A ctive 95583306 Problem B12 deficiency E53.8 Active 984733240 Problem Osteopenia of multiple sites M85.89 Active 312 747665 Problem Traumatic tear of supraspina tus tendon of left shoulder, initial encounter S46.812A Active 773008137 Problem Primary osteoarthritis of both knees M17.0 Act ariella 189106543 Problem Cervical cancer screening Z12.4 Active 457606 001 ALLERGIES Allergen (clinical drug ingredient) Drug/Non Drug Allergy do cumented on EMR Reaction Allergy Type Onset Date Status morphine Morphine Sulfate([facility] Code:[id number]) Nausea/Vomiti ng Drug Allergy Active Seasonal Allergies Unknown Non Drug Allergy Active ENCOUNTERS from 1965 to 2020-02-24 Encounter Location Date Provider Diagnosis [facility] [address] [place] [address] Feb, 020 Javed Sykes IMMUNIZATIONS Vaccine Route [...] School Language: Question Answer Notes Languages spoken: Slovenian Judaism: Question Answer Notes Judaism 13 Advent Sexual Hx: Question Answer Notes Had sex [...] 07/2013 MRI s/p L3-5 decompression/fusion 12/2013 [facility]/s/p L2/3 fusion-[place] Medical History cervical DJD s/p C5-7 ACDF 3034-Eiuuym-Jvqxrmv//09/2015 stable MRI Medical History allergic rhinitis h/o [...] Provider Name:Javed Sykes, 2021-05-09 0 9:30:00 AM, [address] [place] [address], [id number], Insurance Providers Payer Name Payer Address Payer Phone Insured Name Patient Relati onship to Insured Coverage Start Date Coverage End Date [facility] [facility] [address] [facility] [phone] MELINA E[place]SWORTH
--- OUTSIDE RECORDS SUMMARY | 2020-04-07 09:08 | CCD | Continuity of Care Document ---
Author Author Brooks RAINES MD Organization Unknown Address [address] [place] [address], [address] [place] [address] Phone [phone] Care Team Providers Care Fire Prevention Inspector Name Role Phone Shanita Nick MD AUTM Javed Sykes MD AUTM [phone] Ignacio Goyal AUTM [phone] Problems Description No Active Problems Social History [...] Information Available Procedures Date Code Description Status 08/27/2019 31213 Therapeutic Procedure, Each 15 M inutes Completed 08/20/2019 95056 Therapeutic Procedure, Each 15 M inutes Completed 08/15/2019 59543 Therapeutic Procedure, Each 15 M inutes Completed 08/15/2019 32448 Hot Or Cold Packs Completed 08/08/2019 88312 Therapeutic Procedure, Each 15 M inutes Completed 08/05/2019 78765 Therapeutic Procedure, Each 15 M inutes Completed 08/05/2019 32150 Electrical Stimulati on Manual, Each 15 Min, Constant Attendance Completed 08/05/2019 98374 Hot Or Cold Packs Completed 07/29/2019 44337 Therapeutic Procedure, Each 15 M inutes Completed 07/29/2019 06288 Electrical Stimulati on Manual, Each 15 Min, Constant Attendance Completed 07/29/2019 29367 Hot Or Cold Packs Completed 07/25/2019 67392 Therapeutic Procedure, Each 15 M inutes Completed 07/25/2019 62812 Electrical Stimulati on Manual, Each 15 Min, Constant Attendance Completed 07/25/2019 16818 Hot Or Cold Packs Completed 07/23/2019 95188 Therapeutic Procedure, Each 15 M inutes Completed 07/17/2019 04940 Therapeutic Procedure, Each 15 M inutes Completed Medical Devices Description No Information Available Encounters Description No Information Available Assessments Date Code Description Provider 01/15/2020 M75.112 Incomplete rotator c uff tear or rupture of left shoulder, not specified as traumatic Jareth Raines MD 01/15/2020 M25.512 Pain in left shoulder Jareth faria MD 12/15/2019 M25.512 Pain in left shoulder Alethea Segovia PA-C 08/27/2019 Z47.89 Encounter for other orthopedic a ftezequiel Foster, P.T.A. 08/20/2019 Z47.89 Encounter for other orthopedic a emiliano Foster, P.T.A. 08/15/2019 Z47.89 Encounter for other orthopedic a ftercare Wendy Medeiros, THERMAL SURFACING MACHINE OPERATOR 08/08/2019 Z47.89 Encounter for other orthopedic a ftercare Renee Izaguirrehring, P.T.A. 08/05/2019 Z47.89 Encounter for other orthopedic a ftercare Yesika Son, MSPT 07/29/2019 Z47.89 Encounter for other orthopedic a ftercare Yesika SiddiquiEsperanza Son, MSPT 07/25/2019 Z47.89 Encounter for other orthopedic a ftercare Renee Izaguirrehring, P.T.A. 07/23/2019 Z47.89 Encounter for other orthopedic a ftercare Wendy Medeiros, THERMAL SURFACING MACHINE OPERATOR 07/17/2019 Z47.89 Encounter for other orthopedic a fterccaitlyn Medeiros, THERMAL SURFACING MACHINE OPERATOR Plan of Treatment 01/15/2020 - Jareth Raines MD* M75.112 Incomplete rotator cuff tear or rupture of left shoulder, not specified as traumatic* Follow up:* in 6 weeks with [facility] for left shoulder recheck please. * M25.512 Pain in left shoulder Functional Status Description No Information Available Mental Status Description No Information Available Referrals Description No Information Available
[2020-04-07] MEDS ORDERED: propofoL 200 MG/20 ML VIAL As Ordered ONE ×2 (10:54→11:01)
[2020-04-07] MEDS ORDERED: LIDOCAINE 2% 100MG/5ML SDV (FOR ANES.) As Ordered ONE (10:54)
--- NOTE | 2020-04-07 11:03 | ROOR ---
Patient Name: Brooks Ellsworth Procedure Date: 04/07/2020 10:46 AM Date of : 1965 Age: 55 Room: [facility] Gender: Female Note Status: Finalized Procedure: Colonoscopy Indications: Follow-up of diverticulitis Providers: DO Giselle Hooks MD: Javed Sykes MD Requesting Provider: Medicines: Propofol per Anesthesia Complications: No immediate complications. Procedure: Pre-Anesthesia Assessment: - Prior to the procedure, a History and Physical was performed, and patient medications and allergies were reviewed. The patient is competent. The risks and benefits of the procedure and the sedation options and risks were discussed with the patient. All questions were answered and informed consent was obtained. Patient identification and proposed procedure were verified by the physician, the nurse, the anesthesiologist and the food service technician in the endoscopy suite. Mental Status Examination: alert and oriented. Airway Examination: normal oropharyngeal airway and neck mobility. Respiratory Examination: clear to auscultation. CV Examination: normal. Prophylactic Antibiotics: The patient does not require prophylactic antibiotics. Prior Anticoagulants: The patient has taken no previous anticoagulant or antiplatelet agents. ASA Grade Assessment: II - A patient with mild systemic disease. After reviewing the risks and benefits, the patient was deemed in satisfactory condition to undergo the procedure. The anesthesia plan was to use monitored anesthesia care (MAC). Immediately prior to administration of medications, the patient was re-assessed for adequacy to receive sedatives. The heart rate, respiratory rate, oxygen saturations, blood pressure, adequacy of pulmonary ventilation, and response to care were monitored throughout the procedure. The physical status of the patient was re-assessed after the procedure. The Colonoscope was introduced through the anus and advanced to the cecum, identified by appendiceal orifice and ileocecal valve. The colonoscopy was performed without difficulty. The patient tolerated the procedure well. Findings: Multiple medium-mouthed diverticula were found in the sigmoid colon. Impression: - Diverticulosis in the sigmoid colon. - No specimens collected. Recommendation: - Patient has a contact number available for emergencies. The signs and symptoms of potential delayed complications were discussed with the patient. Return to normal activities tomorrow. Written discharge instructions were provided to the patient. - Repeat colonoscopy in 5-10 years for screening purposes. - Return to my office PRN. Procedure Code(s): --- Professional --- 02190, Colonoscopy, flexible; diagnostic, including collection of specimen(s) by brushing or washing, when performed (separate procedure) Diagnosis Code(s): --- Professional --- K57.32, Diverticulitis of large intestine without perforation or abscess without bleeding K57.30, Diverticulosis of large intestine without perforation or abscess without bleeding CPT copyright 2019 [employer]. All rights reserved. The codes documented in this report are preliminary and upon sales representative girls' apparel review may be revised to meet current compliance requirements. Mehdi Hu DO 04/07/2020 11:02:55 AM Electronically signed by Mehdi Hu DO Number of Addenda: 0 Note Initiated On: 04/07/2020 10:46 AM Estimated Blood Loss: Estimated blood loss: none.
[2020-04-07 11:30] VITALS: BP 119/83
== END 2020-04-07 11:47 | disposition home or self-care (01) ==
LOC: M OPP 09:02
PROVIDERS: ATTEND Surgery
DX: K57.32 Diverticulitis of large intestine without perforation or abscess without bleeding (principal); K57.30 Diverticulosis of large intestine without perforation or abscess without bleeding; I10 Essential (primary) hypertension; R12 Heartburn; M19.90 Unspecified osteoarthritis, unspecified site; Z88.5 Allergy status to narcotic agent; Z79.899 Other long term (current) drug therapy

== ENCOUNTER 2020-04-26 08:31 | Emergency (ER) | payer OTHER ==
[~2020-04-26] VITALS: Ht 170.2 cm; Wt 89.9 kg
[~2020-04-26 08:31] MED LIST changes: -NS 1,000 ML IV ONE
[2020-04-26] MEDS ORDERED: MELO15TA28 (08:40)
--- NOTE | 2020-04-26 09:24 | REP ---
INDICATION: TRAUMA. COMPARISON: Comparison CT study of the brain is from 28 Jul 2019.. TECHNIQUE: Helical scanning is acquired. 5 mm axial images were reformatted. Coronal MPR images were generated. FINDINGS: Digital preliminary preparation plant supervisor radiograph shows fusion hardware in the cervical spine. There is a small air-fluid level in the left maxillary sinus. The visualized paranasal sinuses are otherwise clear. The bony calvarium is intact on axial CT images. No skull fracture is appreciated. No significant scalp hematoma is appreciated. On soft tissue window settings, the lateral, 3rd, and 4th ventricles are normal in position and appearance. There is a small low-density area in the anteromedial aspect of the left cerebral peduncle unchanged from the 28 Jul 2019 study. This may represent dilated perivascular space or developmental asymmetry in the interpeduncular cistern. In any event, it is unchanged. There is no evidence of intracranial hemorrhage. No extra-axial fluid collection, acute infarction, mass or midline shift is appreciated. IMPRESSION: Small air-fluid level in the left maxillary sinus noted incidentally. No acute intracranial abnormality. No skull fracture or intracranial injury seen.. <Electronically signed by Ramin Azevedo > 04/26/20 5533
--- NOTE | 2020-04-26 09:26 | REP ---
INDICATION: TRAUMA. COMPARISON: Comparison CT study of the cervical spine July 28, 2019.. TECHNIQUE: Helical scanning is acquired and overlapping 2 mm high resolution axial images were generated and reviewed at bone and soft tissue window settings. Coronal and sagittal multiplanar re-formations images are generated. FINDINGS: The patient is status post cervical discectomy and fusion plating across the C5 through C7 levels as noted previously. Degenerative changes are noted at C1-2 and mild degenerative disc changes are visible at C4-5 and C3-4. There is straightening. Mild osteoarthritic facet disease is noted, most pronounced on the left at the C4-5 level unchanged. There is a mild levoconvex curve on the coronal images. There is no evidence of fracture. No intraspinal or paraspinal hematoma is appreciated. No subluxation seen.. IMPRESSION: Degenerative spondylosis changes status post C5 through C7 fusion plating. No traumatic abnormality noted.. <Electronically signed by Ramin Azevedo > 04/26/20 6643
[2020-04-26] MEDS ORDERED: ONDANSETRON 4MG/2ML VIAL IV ONE (09:45)
[2020-04-26] MEDS ORDERED: KETOROLAC TROMETHAMINE 10 MG TAB PO ONE (09:45)
[2020-04-26] MEDS ORDERED: GI COCKTAIL 50ML BTL(HYOSCYAMINE/MAALOX/LIDOCAINE VISCOUS)(1:3:1) PO ONE (09:45)
[2020-04-26] MEDS ORDERED: ASPIRIN 81 MG CHEW TABLET PO ONE (09:45)
[2020-04-26] MEDS ORDERED: ONDANSETRON 4 MG TAB PO ONE (09:45)
--- NOTE | 2020-04-26 10:15 | REP ---
INDICATION: fall shoulder pain. COMPARISON: Comparison left shoulder radiographs 04 April 2018.. TECHNIQUE: Three views. FINDINGS: The left distal clavicle has been resected widening the AC joint. There is fusion hardware in the lower cervical spine. The glenohumeral and acromioclavicular joints are normally aligned. Periarticular soft tissues are unremarkable. No fracture or subluxation is seen. IMPRESSION: No fracture or subluxation noted. Status post to the resection of the distal clavicle on the left. Cervical spine fusion hardware. <Electronically signed by Ramin Azevedo > 04/26/20 1011
--- NOTE | 2020-04-26 10:16 | REP ---
INDICATION: fall shoulder pain. COMPARISON: None. TECHNIQUE: AP and frogleg views of the left hip are obtained. FINDINGS: The left femoral head is smooth and rounded hip joint space is preserved. Periarticular soft tissues are unremarkable. No fracture or subluxation is seen. IMPRESSION: Negative left hip radiographs. <Electronically signed by Ramin Azevedo > 04/26/20 1010
[2020-04-26] MEDS ORDERED: KETO10TAB PO (11:43)
[2020-04-26 11:52] VITALS: BP 154/81
== END 2020-04-26 11:55 | disposition home or self-care (01) ==
LOC: M ED 08:31
DX: S09.90XA Unspecified injury of head, initial encounter (principal); S70.02XA Contusion of left hip, initial encounter; W00.0XXA Fall on same level due to ice and snow, initial encounter; Y92.018 Other place in single-family (private) house as the place of occurrence of the external cause; M25.512 Pain in left shoulder; I10 Essential (primary) hypertension; Z88.5 Allergy status to narcotic agent; J30.89 Other allergic rhinitis; Z79.899 Other long term (current) drug therapy

== ENCOUNTER → 2020-05-05 | Outpatient (REF) | payer OTHER ==
[~2020-05-05] MED LIST changes: +KETO10TAB PO; +MELO15TA28
[2020-05-05 13:28] LABS: BASO # 0.1 10^3/uL (0.0-0.2); BASO % 0.7 % (0.0-1.0); EOS # 0.1 10^3/uL (0.0-0.5); EOS % 1.8 % (0.0-3.0); HEMATOCRIT 42.9 % (36.0-47.0); LYMPH # 1.6 10^3/uL (1.5-5.0); LYMPH % 23.1 % (24.0-44.0); MEAN CORPUSCULAR HEMOGLOBIN 28.3 pg (27.0-33.0); MEAN CORPUSCULAR HGB CONC 32.6 g/dl (32.0-36.5); MEAN CORPUSCULAR VOLUME 86.7 fl (80.0-96.0); MONO # 0.4 10^3/uL (0.0-0.8); MONO % 5.8 % (2.0-8.0); NEUTROPHILS # 4.8 10^3/uL (1.5-8.5); NEUTROPHILS % 68.2 % (36.0-66.0); PLATELET COUNT, AUTOMATED 217 10^3/uL (150-450); RED BLOOD COUNT 4.95 10^6/uL (4.00-5.40); WHITE BLOOD COUNT 7.1 10^3/uL (4.0-10.0)
[2020-05-05 14:03] LABS: C REACTIVE PROTEIN QUANTITATIV 0.43 MG/DL (0.00-0.30); CHOLESTEROL LEVEL 237 MG/DL (<200); CHOLESTEROL RISK RATIO 2.693 (<5); CPK CREATINE PHOSPHOKINASE 101 U/L (26-192); HDL CHOLESTEROL 88 MG/DL (>40); LDL CHOLESTEROL 134 MG/DL (<100); NON-HDL-C 149 MG/DL; TRIGLYCERIDES LEVEL 76 MG/DL (<150)
[2020-05-05 14:04] LABS: TOTAL 25(OH) VITAMIN D 45.6 NG/ML (30.0-100.0)
[2020-05-05 14:05] LABS: PTH INTACT 41.3 PG/ML (18.5-88.0); VITAMIN B12 LEVEL > 2000 PG/ML (247-911)
[2020-05-05 15:05] LABS: HEMOGLOBIN A1c 5.1 %
== END ==
LOC: M SFHCPLAZ 11:49
PROVIDERS: ATTEND Family Medicine
DX: E53.8 Deficiency of other specified B group vitamins (principal); I10 Essential (primary) hypertension; R73.01 Impaired fasting glucose

== ENCOUNTER → 2020-08-11 | Outpatient (CLI) | payer OTHER ==
--- NOTE | 2020-08-11 15:32 | REP ---
INDICATION: THYROID NODULE COMPARISON: 07/30/2019 TECHNIQUE: Ochoa scale and color evaluation of the thyroid gland using the linear high frequency transducer. FINDINGS: Thyroid gland is upper limits of normal in size demonstrating scattered bilateral nodules. Isthmus measures 2.7 mm in width. Right lobe measures 4.5 x 1.8 x 1.3 cm with 4 x 2 x 4 mm hypoechoic upper pole nodule, 4 x 3 x 4 mm complex midpole nodule, and 2 x 3 x 3 mm lower pole cyst. Left lobe measures 4.8 x 1.9 x 1.8 cm and includes 3 x 4 x 5 mm and 4 x 3 x 5 mm hypoechoic upper pole nodules, 26 x 15 x 19 mm isoechoic midpole nodule, and 7 x 6 x 7 mm complex hypoechoic lower pole nodule. IMPRESSION: Bilateral relatively indeterminate thyroid lesions as described above are essentially stable when allowing for variation in technique. The largest lesion noted in the left thyroid lobe corresponds to TI-RADS TR4 category and based on size may warrant biopsy if not previously performed. <Electronically signed by Kirit Degroot > 08/11/20 1522
== END ==
LOC: M RAD 13:22
PROVIDERS: ATTEND Family Medicine
DX: E04.1 Nontoxic single thyroid nodule (principal)

== ENCOUNTER 2020-08-14 19:17 | Emergency (ER) | payer OTHER ==
[~2020-08-14] VITALS: Ht 167.6 cm; Wt 84.1 kg
[2020-08-14] MEDS ORDERED: NS 500 ML IV ONE (20:05)
[2020-08-14] MEDS ORDERED: ONDANSETRON 4MG/2ML VIAL IV ONE (20:05)
[2020-08-14 20:22] LABS: BASO % 0.3 % (0.0-1.0); EOS # 0.1 10^3/uL (0.0-0.5); EOS % 1.1 % (0.0-3.0); HEMATOCRIT 42.6 % (36.0-47.0); HEMOGLOBIN 13.9 g/dl (12.0-15.5); LYMPH # 1.7 10^3/uL (1.5-5.0); LYMPH % 19.5 % (24.0-44.0); MEAN CORPUSCULAR HEMOGLOBIN 28.3 pg (27.0-33.0); MEAN CORPUSCULAR HGB CONC 32.6 g/dl (32.0-36.5); MEAN CORPUSCULAR VOLUME 86.8 fl (80.0-96.0); MONO # 0.6 10^3/uL (0.0-0.8); MONO % 6.4 % (2.0-8.0); NEUTROPHILS # 6.4 10^3/uL (1.5-8.5); NEUTROPHILS % 72.4 % (36.0-66.0); PLATELET COUNT, AUTOMATED 191 10^3/uL (150-450); RED BLOOD COUNT 4.91 10^6/uL (4.00-5.40); WHITE BLOOD COUNT 8.9 10^3/uL (4.0-10.0)
[2020-08-14] MEDS ORDERED: ISOVUE-370 76% 100ML VIAL As Ordered ONE (20:45)
[2020-08-14] MEDS ORDERED: KETOROLAC 30 MG/ML 1ML VIAL IV ONE (20:45)
[2020-08-14 20:57] LABS: ALBUMIN 3.5 GM/DL (3.2-5.2); BILIRUBIN,DIRECT 0.1 MG/DL (0.0-0.2); BILIRUBIN,TOTAL 0.5 MG/DL (0.2-1.0); TOTAL PROTEIN 6.5 GM/DL (6.4-8.2)
--- NOTE | 2020-08-14 21:26 | REPVR ---
PROCEDURE INFORMATION: Exam: CT Abdomen And Pelvis With Contrast Exam date and time: 08/14/2020 8:49 PM Age: 55 years old Clinical indication: Lower abdominal pain. TECHNIQUE: Imaging protocol: Computed tomography of the abdomen and pelvis with contrast. Radiation optimization: All CT scans at this facility use at least one of these dose optimization techniques: automated exposure control; mA and/or kV adjustment per patient size (includes targeted exams where dose is matched to clinical indication); or iterative reconstruction. Contrast material: ISOVUE 370; Contrast volume: 100 ml; Contrast route: INTRAVENOUS (IV); COMPARISON: CT ABD/PEL W/IV CONTRAST ONLY 02/24/2020 2:29 PM FINDINGS: Lungs: There is mild dependent atelectasis in both lower lobes. The lungs were not fully imaged. Heart: No cardiomegaly or pericardial effusion. Diaphragm: Intact. Liver: Unremarkable. No liver lesion is identified. The contour of the liver is smooth. No hepatomegaly is noted. Gallbladder and bile ducts: No calcified gallstones are noted. No gallbladder wall thickening, pericholecystic fluid, or pericholecystic inflammatory changes are identified. No dilation of the bile ducts is noted. No calcified stones are seen in the common bile duct. Pancreas: Normal. No dilation of the main pancreatic duct is noted. Spleen: Normal. No splenomegaly is noted. Adrenal glands: Normal. No adrenal mass is noted. Kidneys and ureters: The kidneys are normal in appearance. No renal lesion is noted. No stones are noted in the kidneys or ureters. There is no hydronephrosis or hydroureter. There are no wedge-shaped areas of low attenuation in the kidneys to suggest pyelonephritis. There is no renal abscess or perinephric fluid collection. Stomach and bowel: The stomach and small bowel are unremarkable. There is severe sigmoid diverticulosis, thickening of the wall of the mid sigmoid colon, and inflammatory fat stranding around diverticuli arising from the mid sigmoid colon in the right side of the pelvis, which are findings compatible with sigmoid diverticulitis. No fistula bowel obstruction is noted. There is a moderate amount of formed stool in the colon. Appendix: There are no findings to suggest acute appendicitis. Intraperitoneal space: No free air. No ascites. No abscess. Retroperitoneal space: No fluid collection. No mass. Vasculature: The abdominal aorta is patent, normal in caliber, and there is no dissection. The iliac arteries, common femoral arteries, renal arteries, celiac artery, superior mesenteric artery, and inferior mesenteric artery are patent. There are mild atherosclerotic calcifications. Lymph nodes: No enlarged lymph nodes. Urinary bladder: The distended urinary bladder is normal in appearance. No stones or masses are seen in the bladder. Reproductive: The uterus is anterverted and unremarkable. The ovaries are unremarkable. Bones/joints: Postoperative changes are noted in the lumbar spine. There is broadening of the left transverse process of L5, which forms a pseudoarticulation with the sacrum. A mild levoscoliosis of the lumbar spine is present. There are bilateral vertical posterior rods and transpedicular screws from the L2 level to the L5 level. There is a solid interbody fusion at the L2-L3 and L4-L5 levels. There are L2, L3, L4 laminectomy defects. A solid bilateral posterolateral fusion is present from the L2 level to the L5 level. Soft tissues: There is a small fat containing umbilical hernia. IMPRESSION: Sigmoid diverticulitis. No fistula, free air, abscess, or bowel obstruction. Electronically signed by: Isrrael De Anda On 08/14/2020 21:25:48 PM
[2020-08-14] MEDS ORDERED: FLAG500T PO (21:34)
[2020-08-14] MEDS ORDERED: CIPR-249 PO (21:34)
[2020-08-14] MEDS ORDERED: metroNIDAZOLE (FLAGYL) 500MG TABLET PO ONE (21:35)
[2020-08-14] MEDS ORDERED: CIPROFLOXACIN 500MG TABLET PO ONE (21:35)
[2020-08-14] MEDS ORDERED: ONDA4TAB6 PO (21:37)
[2020-08-14 21:46] VITALS: BP 133/73
== END 2020-08-14 21:52 | disposition home or self-care (01) ==
LOC: M ED 19:17
DX: K57.32 Diverticulitis of large intestine without perforation or abscess without bleeding (principal); I10 Essential (primary) hypertension; J45.909 Unspecified asthma, uncomplicated; M51.9 Unspecified thoracic, thoracolumbar and lumbosacral intervertebral disc disorder; Z88.5 Allergy status to narcotic agent; Z79.899 Other long term (current) drug therapy
CPT/HCPCS: 74177; 80047; 80076; 81001; 83605; 83690; 84702; 85025; 96361; 96374; 96375; 99284; J1885; J2405; Q9967

== ENCOUNTER → 2020-10-01 | Outpatient (CLI) | payer OTHER ==
[~2020-10-01] MED LIST changes: +CIPR-249 PO; +FLAG500T PO; +ONDA4TAB6 PO
[2020-10-01 11:04] LABS: BASO % 0.6 % (0.0-1.0); EOS # 0.1 10^3/uL (0.0-0.5); EOS % 1.5 % (0.0-3.0); HEMATOCRIT 44.9 % (36.0-47.0); HEMOGLOBIN 14.7 g/dl (12.0-15.5); LYMPH # 1.4 10^3/uL (1.5-5.0); LYMPH % 20.9 % (24.0-44.0); MEAN CORPUSCULAR HEMOGLOBIN 28.4 pg (27.0-33.0); MEAN CORPUSCULAR HGB CONC 32.7 g/dl (32.0-36.5); MEAN CORPUSCULAR VOLUME 86.8 fl (80.0-96.0); MONO # 0.4 10^3/uL (0.0-0.8); NEUTROPHILS # 4.6 10^3/uL (1.5-8.5); NEUTROPHILS % 70.5 % (36.0-66.0); PLATELET COUNT, AUTOMATED 219 10^3/uL (150-450); RED BLOOD COUNT 5.17 10^6/uL (4.00-5.40); WHITE BLOOD COUNT 6.5 10^3/uL (4.0-10.0)
[2020-10-01 11:33] LABS: HEMOGLOBIN A1c 5.2 %
[2020-10-01 11:39] LABS: ALBUMIN 3.9 GM/DL (3.2-5.2); ALT/SGPT 37 U/L (12-78); BILIRUBIN,TOTAL 0.9 MG/DL (0.2-1.0); BLOOD UREA NITROGEN 14 MG/DL (7-18); CALCIUM LEVEL 9.2 MG/DL (8.5-10.1); CARBON DIOXIDE LEVEL 27 MEQ/L (21-32); CHLORIDE LEVEL 110 MEQ/L (98-107); CREATININE FOR GFR 0.76 MG/DL (0.55-1.30); FERRITIN 96 NG/ML (8-252); GLOMERULAR FILTRATION RATE > 60.0 (>51); GLUCOSE, FASTING 98 MG/DL (70-100); POTASSIUM SERUM 4.7 MEQ/L (3.5-5.1); SODIUM LEVEL 141 MEQ/L (136-145)
[2020-10-01 11:43] LABS: VITAMIN B12 LEVEL 810 PG/ML (247-911)
[2020-10-01 12:14] LABS: CREATININE, URINE 25.5 MG/DL; MALB URINE SIEMENS < 5.0 MG/L; MAU/CREAT RATIO 19.6 MCG/MG (0.0-30.0)
== END ==
LOC: M PLALAB 08:05
PROVIDERS: ATTEND Family Medicine
DX: E53.8 Deficiency of other specified B group vitamins (principal); R73.01 Impaired fasting glucose

== ENCOUNTER → 2021-01-03 | Outpatient (CLI) | payer OTHER ==
--- NOTE | 2021-01-03 11:57 | REPMRS ---
Patient History The patient states she has not had a clinical breast exam in over a year. No known family history of cancer. No Hormone Replacement Therapy Patient states no breast complaints today. Patient has signed MRS History Sheet. Digital Woman Screen Mammo: January 03, 2021 - Exam #: [id number] Bilateral CC and MLO view(s) were taken. Technologist: Quin Henry Technologist Prior study comparison: November 03, 2019, bilateral digital woman screen mammo performed at [facility]. November 01, 2018, bilateral digital woman screen mammo performed at [facility]. FINDINGS: The breast tissue is almost entirely fat. Screening. Digital screening (2D) mammography was performed bilaterally in the CC and MLO projections. Additionally, breast tomosynthesis (3D mammography) was performed bilaterally in the CC and MLO projections. Todays exam was compared to the prior exam/exams. By history, the patient has no complaints of a palpable breast abnormality or other significant breast complaints. The breasts are unchanged in size and shape. There are no hector-soft tissue densities or spiculated masses. There is no internal architectural distortion.Once again, stable benign appearing calcifications are seen. There are no suspicious hector-calcific clusters. Skin thickening or nipple retraction is not present. IMPRESSION: BI-RADS Category 2- Benign Findings. There is no evidence of malignant alteration of the breasts. Followup examination recommended in one year. The Volpara volumetric breast density category is A, the breasts are almost entirely fatty. This mammogram was read with the assistance of Sape,an FDA approved computer aided detection system for mammography. The lifetime Tyrer-Cuzick score is 6.9 % Negative x-ray reports should not delay surgical consultation if a dominant or clinically suspicious mass is present. Not all breast cancers can be identified by mammography. Therefore, we recommend that you continue to perform regular breast self-examination and physical examination and then promptly contact your physician of any concerns or changes. Adenosis and dense breasts may obscure an underlying neoplasm. Assessment: BI-RADS/ACR category 2 mammogram. Benign Findings. Recommendation Routine screening mammogram of both breasts in 1 year. Electronically Signed By: Benito Sheppard DO 01/03/21 0033
--- NOTE | 2021-01-03 13:18 | DEXAMM ---
INDICATION: OSTEOPENIA OF MULTIPLE SITES. COMPARISON: 11/02/2017. TECHNIQUE: Bone density was measured using dual-energy x-ray absorptiometry (DEXA). FINDINGS: LT FEMUR, TOTAL BMD 0.918 g/cm2 Young Adult T-Score -0.7 Age Matched Z-Score 0.0. LT NECK BMD 0.925 g/cm2 Young Adult T-Score -0.8 Age Matched Z-Score 0.3. RT FEMUR, TOTAL BMD 0.917 g/cm2 Young Adult T-Score -0.7 Age Matched Z-Score 0.0. RT NECK BMD 0.979 g/cm2 Young Adult T-Score -0.4 Age Matched Z-Score 0.7. IMPRESSION: There is normal bone density of the left hip. There is normal bone density of the right hip. The density of the left hip has decreased 0.3% since initial exam on 11/02/2017. The density of the right hip has decreased 1.7% since the initial exam on 11/02/2017. FOLLOW-UP: Recommendation for the next bone density exam: 5 years. <Electronically signed by Mehdi Ochoa > 01/03/21 3501
== END ==
LOC: M WHC 10:46
PROVIDERS: ATTEND Family Medicine
DX: Z12.31 Encounter for screening mammogram for malignant neoplasm of breast (principal); M85.851 Other specified disorders of bone density and structure, right thigh; M85.852 Other specified disorders of bone density and structure, left thigh

== ENCOUNTER 2021-01-04 11:41 | Emergency (ER) | payer OTHER ==
[~2021-01-04] VITALS: Ht 170.2 cm; Wt 90.6 kg
--- OUTSIDE RECORDS SUMMARY | 2021-01-04 11:48 | CCD ---
Author Author [facility] Organization [facility] Address Unknown Phone Unavailable Care Team Providers Care Iuss Analyst Name Role Phone Javed Sykes Unavailable PROBLEMS Type Condition ICD9-CM Code [id number] Code Onset Dates Condition S tatus W/U Status Risk SNOMED Code Notes Problem Colon cancer screening Z12.11 Active confirmed 440285064 Problem Asthma, mild intermittent J45.20 Active confirmed 752105312 Problem Hypertension I10 Active confirmed 1759319 3 Problem Breast cancer screening Z12.39 Active confirmed 389758467 Problem Postlaminectomy syndrome, not elsewhere classified M96.1 Active confirmed 57666719 Problem Vitamin D deficiency E55.9 Active confirmed 29687542 Problem Mixed hyperlipidemia E78.2 Active confirmed 070958194 Problem Allergic rhinitis J30.9 Active confirmed 61 304223 Problem Sacroiliitis, not elsewhere classified M46.1 A ctive confirmed 26225375 Problem Situational depression F43.21 Active confirmed 96752454 Problem Osteopenia of multiple sites M85.89 Active confirme d 064287576 Problem Traumatic tear of supraspina tus tendon of left shoulder, initial encounter S46.812A Active confirmed 238290527 Problem Primary osteoarthritis of right hip M16.11 Acti ve confirmed 655766846129821 Problem Recurrent sinusitis J32.9 Active confirmed 745749947 Problem Eustachian tube dysfunction H69.80 Active confirmed 45954128 Problem Other intervertebral disc degeneration, lumbar region M51.36 Active confirmed 92317705 Problem Overweight E66.3 Active confirmed 368659214 Problem B12 deficiency E53.8 Active confirmed 76726 4004 Problem Premature menopause E28.319 Active confirmed 743360379 Problem Primary osteoarthritis of both knees M17.0 Act ariella confirmed 395411094 Problem IFG (impaired fasting glucose) R73.01 Active confir med 977278186 Problem Cervical cancer screening Z12.4 Active confirmed 397190227 Problem Thyroid nodule E04.1 Active confirmed 30053 5005 ALLERGIES Allergen (clinical drug ingredient) Drug/Non Drug Allergy do cumented on EMR Reaction Allergy Type Onset Date Status morphine Morphine Sulfate([facility] Code:[address]-56) Nausea/Vomiti ng Drug Allergy Active Seasonal Allergies Unknown Non Drug Allergy Active ENCOUNTERS from 1965 to 2020-10-16 Encounter Location Date Provider Diagnosis [facility] [address] [phone] [place] [address] Sep, Javed Sykes Asthma, mild intermittent J4 5.20 IMMUNIZATIONS Vaccine Route Administration Date Status Influenza 18 yrs & older Flublok IM Intramuscular Feb 18, 2019 Administered Toradol 60mg/2mL Ketorolac IM Intramuscular July 21, 2020 Admi nistered Influenza 6mo & up Fluzone IM Intramuscular Feb 04, 2016 Admi nistered Influenza 6mo & up Fluzone IM Intramuscular Jan 27, 2014 Admi nistered Influenza 6mo & up Fluzone IM Intramuscular Jan 27, 2013 Admi nistered Influenza 6mo & up Fluzone IM Intramuscular Dec 20, 2009 Admi nistered SOCIAL HISTORY Tobacco Use: Social History Observation Description Date Details (start date - stop date) Never Smoker Sex Assigned At : Social History Observation Description Sex Assigned At Unknown Education: Question Answer Notes Level of Education: Finished High School Language: Question Answer Notes Languages spoken: Mongolian Latter-Day: Question Answer Notes Latter-Day 13 Nondenominational Sexual Hx: Question Answer Notes Had sex [...] Notes Start Da te End Date Status tiZANidine HCl 2 MG 1 to 2 tablet as needed Oral ly before bedtime MDD2 for 30 days Active Fluticasone Propionate 50 MCG/DOSE 1 spray in each nos tril Nasally BID for 30 day(s) Active Tylenol PM 1 tab Oral before bedtime Active Cetirizine-Pseudoephedrine ER 5-120 MG 1 tablet Orally Twice a day for 30 Days Active Benadryl Allergy 25 MG 1 tablet Orally Every 6 hours as needed Active Mobic 7.5 MG 1 tablet Orally Once a dayprn for 30 Days Sep, Active Nebulizer/Tubing/Mouthpiece 1 as directed J10.1 Daily for 7 day( s) Apr, Active Cyanocobalamin 250 MCG 1 tablet Orally Once a day for 90 day(s) Active Proventil HFA 108 (90 Base) MCG/ACT 2 puffs as needed Inhalation every 6 hrs prn wheeze for 30 day(s) Active traMADol HCl 50 MG 1 tab Orally BID prn, MDD 2 for 30 Days Active Peak Flow Meter - as directed _ Daily, J45.20 for 999 days Sep, Active Vitamin D (Cholecalciferol) 5000 1 tablet Orally Once a day for 30 Da ys Active Lisinopril 20 MG 1 tablet Orally at bedtime for 30 day(s) Active PROCEDURES No Information RESULTS No Results REASON FOR VISIT flow meter MEDICAL (GENERAL) HISTORY Type Description Date Medical History premature menopause at age 36 Medical History obesity Medical History hypertension Medical History hyperlipidemia 2B Medical History urinary incontinence- stress Medical History EGD 10/2010-hiatal hernia, ga stritis, completed 8W PPI after prolonged NSAID use Medical History 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 bulges by 07/2013 MRI s/p L3-5 decompression/fusion 12/2013 [facility]/s/p L2/3 fusion-[place] Medical History cervical DJD s/p C5-7 ACDF [id number]//09/2015 stable MRI Medical History allergic rhinitis h/o immuno rx c Dr. Nieto--02/2015 normal zone panel Medical History L plantar fasciitis Medical History R hip OA by 03/2020 Surgical History Neck Surgery Screws and Plates [...] Notes Treatment Notes Treatm ent Clinical Notes Sep, Asthma, mild intermittent (ICD-10 - J45.20) PLAN OF TREATMENT Medication Medication Name Sig Start Date Stop Date Benadryl Allergy 25 MG 1 tablet Orally Every 6 hours as needed Vitamin D (Cholecalciferol) 5000 1 tablet Orally Once a day for 30 Days Fluticasone Propionate 50 MCG/DOSE 1 spray in each nos tril Nasally BID for 30 day(s) Proventil HFA 108 (90 Base) MCG/ACT 2 puffs as needed Inhalation every 6 hrs prn wheeze for 30 day(s) Cetirizine-Pseudoephedrine ER 5-120 MG 1 tablet Orally Twice a day for 30 Days Peak Flow Meter - as directed _ Daily, J45.20 for 999 days 2020 Mobic 7.5 MG 1 tablet Orally Once a dayprn for 30 Days Sep Lisinopril 20 MG 1 tablet Orally at bedtime for 30 day(s) Cyanocobalamin 250 MCG 1 tablet Orally Once a day for 90 day(s) tiZANidine HCl 2 MG 1 to 2 tablet as needed Oral ly before bedtime MDD2 for 30 days traMADol HCl 50 MG 1 tab Orally BID prn, MDD 2 for 30 Days Next Appt Details Provider Name:Javed Sykes, 2021-03-14 1 0:45:00 AM, [address], , [place], [place], [address], Insurance Providers Payer Name Payer Address Payer Phone Insured Name Patient Relati onship to Insured Coverage Start Date Coverage End Date [facility] [address] [facility] [id number] MELINA ELLSWORTH
--- OUTSIDE RECORDS SUMMARY | 2021-01-04 11:48 | CCD ---
Author Author [facility] Organization [facility] Address Unknown Phone Unavailable Care Team Providers Care Lightout Examiner Name Role Phone Javed Sykes Unavailable PROBLEMS Type Condition ICD9-CM Code EMS57-TS Code Onset Dates Condition S tatus W/U Status Risk SNOMED Code Notes Problem Colon cancer screening Z12.11 Active confirmed 528452477 Problem Asthma, mild intermittent J45.20 Active confirmed 052081886 Problem Hypertension I10 Active confirmed 4948374 3 Problem Breast cancer screening Z12.39 Active confirmed 579901414 Problem Postlaminectomy syndrome, not elsewhere classified M96.1 Active confirmed 10472571 Problem Vitamin D deficiency E55.9 Active confirmed 71003716 Problem Mixed hyperlipidemia E78.2 Active confirmed 362466727 Problem Allergic rhinitis J30.9 Active confirmed 61 364406 Problem Sacroiliitis, not elsewhere classified M46.1 A ctive confirmed 78714111 Problem Situational depression F43.21 Active confirmed 87370429 Problem Osteopenia of multiple sites M85.89 Active confirme d 323795610 Problem Traumatic tear of supraspina tus tendon of left shoulder, initial encounter S46.812A Active confirmed 045217538 Problem Primary osteoarthritis of right hip M16.11 Acti ve confirmed 976796012579672 Problem Recurrent sinusitis J32.9 Active confirmed 124309297 Problem Eustachian tube dysfunction H69.80 Active confirmed 35262072 Problem Other intervertebral disc degeneration, lumbar region M51.36 Active confirmed 14820820 Problem Overweight E66.3 Active confirmed 984538494 Problem B12 deficiency E53.8 Active confirmed 49907 4004 Problem Premature menopause E28.319 Active confirmed 044194508 Problem Primary osteoarthritis of both knees M17.0 Act ariella confirmed 789857102 Problem IFG (impaired fasting glucose) R73.01 Active confir med 177500317 Problem Cervical cancer screening Z12.4 Active confirmed 249866941 Problem Thyroid nodule E04.1 Active confirmed 05416 5005 ALLERGIES Allergen (clinical drug ingredient) Drug/Non Drug Allergy do cumented on EMR Reaction Allergy Type Onset Date Status morphine Morphine Sulfate([facility] Code:[address]-92) Nausea/Vomiti ng Drug Allergy Active Seasonal Allergies Unknown Non Drug Allergy Active ENCOUNTERS from 1964 to 2020-10-14 Encounter Location Date Provider Diagnosis [facility] [address] [phone] [place] [address] Sep, Javed Onel Postlaminectomy syndrome, no t elsewhere classified M96.1 and Asthma, mild intermittent J45.20 IMMUNIZATIONS Vaccine Route Administration Date Status Influenza [...] School Language: Question Answer Notes Languages spoken: [place]ese Gnosticist: Question Answer Notes Gnosticist 13 Denominational Sexual Hx: Question Answer Notes Had sex [...] Information RESULTS No Results REASON FOR VISIT Celecoxib 200 MG Capsule MEDICAL (GENERAL) HISTORY Type Description Date Medical History premature menopause at age 36 Medical History obesity Medical History hypertension Medical History hyperlipidemia 2B Medical History urinary incontinence- stress Medical History EGD 10/2010-hiatal hernia, ga stritis, completed 8W PPI after prolonged NSAID use Medical History 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 bulges by 07/2013 MRI s/p L3-5 decompression/fusion 12/2013 [facility]/s/p L2/3 fusion-[place] Medical History cervical DJD s/p C5-7 ACDF [id number]//09/2015 stable MRI Medical History allergic rhinitis h/o [...] Treatment Notes Treatm ent Clinical Notes Sep, Postlaminectomy syndrome, no t elsewhere classified (ICD-10 - M96.1) Sep, Asthma, mild intermittent (ICD-10 - J45.20) [...] 30 Days Next Appt Details Provider Name:Javed Olguin Onel, 2021-03-14 1 0:45:00 AM, [address], , [place], [address], Insurance Providers Payer Name Payer Address Payer Phone Insured Name Patient Relati onship to Insured Coverage Start Date Coverage End Date COUNT INCLUDES THE [facility] [employer] [facility] [address] [facility] [phone] MELINA ELLSWORTH self
--- OUTSIDE RECORDS SUMMARY | 2021-01-04 11:48 | CCD ---
Author Author [facility] Organization [facility] Address Unknown Phone Unavailable Care Team Providers Care Lead Generation Marketing Manager Name Role Phone Javed Sykes Unavailable PROBLEMS Type Condition ICD9-CM Code IYR50-JD Code Onset Dates Condition S tatus W/U Status Risk SNOMED Code Notes Problem Colon cancer screening Z12.11 Active confirmed 492754467 Problem Asthma, mild intermittent J45.20 Active confirmed 598202863 Problem Hypertension I10 Active confirmed 3441798 3 Problem Breast cancer screening Z12.39 Active confirmed 651073989 Problem Postlaminectomy syndrome, not elsewhere classified M96.1 Active confirmed 92530245 Problem Vitamin D deficiency E55.9 Active confirmed 91493821 Problem Mixed hyperlipidemia E78.2 Active confirmed 082199585 Problem Allergic rhinitis J30.9 Active confirmed 61 284880 Problem Sacroiliitis, not elsewhere classified M46.1 A ctive confirmed 78341987 Problem Situational depression F43.21 Active confirmed 63032084 Problem Osteopenia of multiple sites M85.89 Active confirme d 857878265 Problem Traumatic tear of supraspina tus tendon of left shoulder, initial encounter S46.812A Active confirmed 747693724 Problem Primary osteoarthritis of right hip M16.11 Acti ve confirmed [id number] Problem Recurrent sinusitis J32.9 Active confirmed 769907907 Problem Eustachian tube dysfunction H69.80 Active confirmed 58060362 Problem Other intervertebral disc degeneration, lumbar region M51.36 Active confirmed 87438886 Problem Overweight E66.3 Active confirmed 388240514 Problem B12 deficiency E53.8 Active confirmed 76992 4004 Problem Premature menopause E28.319 Active confirmed 338947067 Problem Primary osteoarthritis of both knees M17.0 Act ariella confirmed 899134934 Problem IFG (impaired fasting glucose) R73.01 Active confir med 608738193 Problem Cervical cancer screening Z12.4 Active confirmed 505848717 Problem Thyroid nodule E04.1 Active confirmed 30890 5005 ALLERGIES Allergen (clinical drug ingredient) Drug/Non Drug Allergy do cumented on EMR Reaction Allergy Type Onset Date Status morphine Morphine Sulfate([facility] Code:[address]-02) Nausea/Vomiti ng Drug Allergy Active Seasonal Allergies Unknown Non Drug Allergy Active ENCOUNTERS from 1964 to 2020-10-14 Encounter Location Date Provider Diagnosis [facility] [address] [phone] [place] [address] Sep, Javed Sykes Annual physical exam Z00.00 ; Asthma, mild intermittent J45.20 ; Postlaminectomy syndrome, not elsewhere classified M96.1 ; Primary osteoarthritis of right hip M16.11 ; B12 deficiency E53.8 ; Thyroid nodule E04.1 ; Hypertension I10 ; IFG (impaired fasting glucose) R73.01 ; Mixed hyperlipidemia E78.2 ; Traumatic tear of supraspinatus tendon of left shoulder, initial encounter S46.812A ; Colon cancer screening Z12.11 ; Osteopenia of multiple sites M85.89 ; Primary osteoarthritis of both knees M17.0 ; Recurrent sinusitis J32.9 ; Situational depression F43.21 ; Sacroiliitis, not elsewhere classified M46.1 ; Cervical cancer screening Z12.4 ; Allergic rhinitis J30.9 ; Premature menopause E28.319 ; Breast cancer screening Z12.39 ; Eustachian tube dysfunction H69.80 ; Vitamin D deficiency E55.9 and Overweight E66.3 IMMUNIZATIONS Vaccine Route Administration Date Status Influenza [...] School Language: Question Answer Notes Languages spoken: Egyptian Rastafarian: Question Answer Notes Rastafarian 13 Holiness Sexual Hx: Question Answer Notes Had sex [...] REASON FOR REFERRAL No Information VITAL SIGNS Weight 202 lbs Sep, Height 70 in Sep, BMI 28.98 kg/m2 Sep, Heart Rate 109 /min Sep, Respiratory Rate 18 /min Sep, Temperature 98.3 degrees Fahrenheit Sep, Oximetry 96% Sep, Blood pressure systolic 130 mm Hg Sep, Blood pressure diastolic 80 mm Hg Sep, MEDICATIONS Medication SIG (Take, Route, Frequency, Duration) [...] Information RESULTS No Results REASON FOR VISIT 5M MEDICAL (GENERAL) HISTORY Type Description Date Medical History premature menopause at age 36 Medical History obesity Medical History hypertension Medical History hyperlipidemia 2B Medical History urinary incontinence- stress Medical History EGD 10/2010-hiatal hernia, ga stritis, completed 8W PPI after prolonged NSAID use Medical History 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 Nieto in past Sep, Postlaminectomy syndrome, no t elsewhere classified (ICD-10 - M96.1) Stable on tiz 4 QHS, tram 50 BID prn (taking 1-2 tabs daily), marko 200 QD prn sid 100 qhs caused severe disorientated p 2 does Contingency: dulox 20 qAM (20 BID c insomnia) 10/11/20 given 50% "bad" days; + marko 200 QD prn (h/o nsCOX NSAID gastritis/UGI bleed) 12/2018 topir 25 QHS changed to dulox 20 BID given non-coverage by i; but insomnia p 3D; therefore, stopped 07/2017 Dr. Basurto [facility] SW felt NOT good candidate for SC stimulator 07/2017 restarted topirim 25 QHS c improved hypersensitity of paralumbar region, but patient stopped 2 no benefit 02/26/17 Ana performed caudal block 08/[address] Ana Acuña PMR who started top 25 BID (highest she can tolerate 2 N) s/p SIJ and epidural c ~50% improvement 05/2016 assumed tiz/tram 09/2015 established c Torres who started tramadol and tizanidine 12/2015 patent SC, NF by 12/2015 MRI Sep, Primary osteoarthritis of right hip (ICD-10 - M1 6.11) R hip OA C: Lizet opinion 05/11/20 per patient she was told that I need to refer her to [facility] for R THR consideration because of her insurance-will obtain recent OV/MRI 08/30/18 R [facility] GCI c ~1Y benefit Sep, B12 deficiency (ICD-10 - E53.8) 10/01/20 14.7, 87, juan 96 01/2019 14.3, 89, r34/1.3 02/2015 hemoglobin stable at 14.7 10/01/20 810 on 250 05/05/20 >2000 on 1000; therefore, decreased to 250 06/20/19 1547 07/2017 942 05/2016 1450 02/2015 1052 on 1 mg QD 04/2014 348, therefore 07/2014 started 1 mg 06/20/19 539 07/2017 388 07/2013 RBC folate 601 02/2017 20%, 57 05/2016 20%, 55 s supplement Sep, Thyroid nodule (ICD-10 - E04.1) 07/2021 repeat thyroid US no FH thryoid cancer/XRT 08/11/20 stable L mid pole n at , all others <1cm 08/25/19 L FNA benign c/w follicular cells/colloid 08/08/19 p dw patient, elected for FNA given 5% cancer risk for cat 3 nodule 07/28/19 sp mechanical fall over bale of hay in barn c striking anterior neck; therefore, presented to [facility] for evaluation CT neck/head WNL x incidental detection of mildly enlarged multi-nodular thyroid c dominant nodule 07/05/15 TI- RADS cat 3 Sep, Hypertension (ICD-10 - I10) Stable on lisin 20 01/2019 4.3, 2.0, 0.8 03/2018 4.6, 2.7, 0.8 07/2017 increased to 20 qhs 04/2017 SS restarted lisin 10 qhs 02/2017 3.9, 2.1, 0.9 12/2013 stopped lisinopril 10 c lumbar DF given hypotension 07/2013 lisinopril 15 decreased to 10 qAM 04/22/15 EKG NSR 90 bpm, LAE, III, aVF Q waves/RA similar to 04/01/2010 Sep, IFG (impaired fasting glucose) (ICD-10 - R73.01) 10/01/20 5.2 (98, 6) 05/05/20 5.1 (in 8) 06/20/19 A1C 5.5, but (71, 12) 10/01/20 20 06/20/19 TREVA/creatinine 6 Sep, Mixed hyperlipidemia (ICD-10 - E78.2) Continue dietary therapy (1-2 EthOH q2-3W) 05/05/20 134/88/76, 101, 0.4 08/22/19 162/85/82, 0.7; therefore, + dietary rx 06/20/19 143/90/100 03/2018 122/81/90, 0.6 10/2016 129/78/79, CPK 61, CRP 0.9 09/2015 lipids 112/66/135 08/2018 0.7, 1.1 10/2016 0.8, 1.2 09/2015 TSH 0.6 01/2019 (92, 8) 08/2018 A1C 5.4 Sep, Traumatic tear of supraspina tus tendon of left shoulder, initial encounter (ICD-10 - S46.812A) Slow improvement sp L arthroscopy 03/20/1904/2018 Dr. Dey preferred PT given by MRI partial thickness tear 04/04/18 + yeboah 7.5 BID c HC 5 QHS prn Sep, Colon cancer screening (ICD-10 - Z12.11) 07/08/19 consents to Cologuard normal colonoscopy in late 30s for abdominal pain Sep, Osteopenia of multiple sites (ICD-10 - M85.89) repeat BMD 10/2020 favor 2 premature menopause at 36 10/2017 baseline BMD -0.6/-0.7/1.7; therefore, maximize Ca/vit D and WBE Sep, Primary osteoarthritis of both knees (ICD-10 - M 17.0) L>R improved c L UL brace, steroid injection by SOS considering L TKR Sep, Recurrent sinusitis (ICD-10 - J32.9) No recurrent symptoms 08/2017 levo 14D c AR rx 02/2017 levo 10D c AR rx Sep, Situational depression (ICD-10 - F43.21) Stable mood/sleep/appetite 2 son loss 01/28/17 Sep, Sacroiliitis, not elsewhere classified (ICD-10 - M46.1) Sep, Cervical cancer screening (ICD-10 - Z12.4) 06/2011 NILM Sep, Allergic rhinitis (ICD-10 - J30.9) Stable on FP 1 BID, cet 5/120 BID c NS TID 02/2015 normal zone 1 panel Sep, Premature menopause (ICD-10 - E28.319) h/o traumatic wrist fracture at 35 yo premature menopause at 36 yo 07/2014 check baseline BMD Sep, Breast cancer screening (ICD-10 - Z12.39) 12/2019 B C1 mammogram Sep, Eustachian tube dysfunction (ICD-10 - H69.80) Stable on current regimen as per AR Sep, Vitamin D deficiency (ICD-10 - E55.9) 05/05/20 25D 46, PTH 41 on D3 5K 08/2018 50, 8.7, 32 05/2016 29, 9.0, PTH 47 02/2015 vitamin D 26, 9.5, PTH 38 on D3 5K QD 04/2014 23, 9.1, therefore increased D3 2K to 5K qd Sep, Overweight (ICD-10 - E66.3) Encouraged weight loss PLAN OF TREATMENT Medication Medication Name Sig [...] BID prn, MDD 2 for 30 Days Treatment Notes Assessment Notes Clinical Notes Situational depression Stable mood/sleep /appetite 2 son loss 01/28/17 Asthma, mild intermittent Stable on alb MDI prn10/11/20 advised to cb PFs08/2015 started Proventil prn which she was on c Dr. Nieto in past Recurrent sinusitis No recurrent symptom levo 14D c AR rx02/2017 levo 10D c AR rx Postlaminectomy syndrome, not elsewhere classified Stable on tiz 4 QHS, tram 50 BID prn (taking 1-2 tabs daily), marko 200 QD prngaba 100 qhs caused severe disorientated p 2 doesContingency: dulox 20 qAM (20 BID c insomnia)10/11/20 given 50% "bad" days; + marko 200 QD prn (h/o nsCOX NSAID gastritis/UGI bleed)12/2018 topir 25 QHS changed to dulox 20 BID given non-coverage by i; but insomnia p 3D; therefore, stopped07/2017 Dr. Basurto [facility] SW felt NOT good candidate for SC stimulator07/2017 restarted topirim 25 QHS c improved hypersensitity of paralumbar region, but patient stopped 2 no eafoygp79/11/17 Ana performed caudal block08/[address] [facility] PMR who started top 25 BID (highest she can tolerate 2 N) s/p SIJ and epidural c ~50% improvement05/2016 assumed tiz/tram09/2015 established c Macdonald who started tramadol and xbnpggpzlo61/2016 patent SC, NF by 12/2015 MRI Allergic rhinitis Stable on FP 1 BID, cet 5/120 BID c NS TID104/2014 normal zone 1 panel Primary osteoarthritis of right hip R hi p OAC: [place] opinion05/11/20 per patient she was told that I need to refer her to [facility] for R THR consideration because of her insurance-[facility] Cervical cancer screening 06/2011 NILM B12 deficiency 10/01/20 14.7, 87, fe r 9601/2019 14.3, 89, r34/1. hemoglobin stable at 14.77 810 on >2000 on 1000; therefore, decreased to 2504 89444 9423 191951/2015 1052 on 1 mg QD04/2014 348, therefore 07/2014 started 1 mg06/20/19 5395 3885/2013 RBC folate 39087 20%, 573/2016 20%, 55 s supplement Breast cancer screening 12/2019 B C1 jessica mogram Thyroid nodule 07/2021 repeat thyroi d USno FH thryoid cancer/XRT08/11/20 stable L mid pole n at , all others <1cm08/25/19 L FNA benign c/w follicular cells/colloid08/08/19 p dw patient, elected for FNA given 5% cancer risk for cat 3 nodule5/11/20 sp mechanical fall over bale of hay in barn c striking anterior neck; therefore, presented to [facility] for evaluation CT neck/head WNL x incidental detection of mildly enlarged multi-nodular thyroid c dominant nodule 07/05/15 TI- RADS cat 3 Premature menopause h/o traumatic wrist fracture at 35 yopremature menopause at 36 yo5 check baseline BMD Hypertension Stable on lisin 20 2 8442101/2019 4.3, 2.0, 0. 4.6, 2.7, 0. increased to 20 qhs04/2017 SS restarted lisin 10 qhs02/2017 3.9, 2.1, 0.910 stopped lisinopril 10 c lumbar DF given hypotension07/2013 lisinopril 15 decreased to 10 qAM2/07/02 EKG NSR 90 bpm, LAE, III, aVF Q waves/RA similar to 04/01/2010 Vitamin D deficiency 05/05/20 25D 46, PTH 41 on D3 50, 8.7, 29, 9.0, PTH 4702/2015 vitamin D 26, 9.5, PTH 38 on D3 5K QD04/2014 23, 9.1, therefore increased D3 2K to 5K qd IFG (impaired fasting glucose) 10/01/20 5 .2 (98, 6)05/05/20 5.1 (in 8)06/20/19 A1C 5.5, but (71, 12)10/01/20 204/06/05 TREVA/creatinine 6 Eustachian tube dysfunction Stable on cu rrent regimen as per [place] Overweight Encouraged weight lo ss Primary osteoarthritis of both knees L>R improved c L UL brace, steroid injection by SOSconsidering L TKR Osteopenia of multiple sites repeat BMD 10/2020favor 2 premature menopause at 89 baseline BMD -0.6/-0.7/1.7; therefore, maximize Ca/vit D and WBE Mixed hyperlipidemia Continue dietary th erapy (1-2 EthOH q2-3W)05/05/20 134/88/76, 101, 0.46/08/05 162/85/82, 0.7; therefore, + dietary rx06/20/19 143//2019 122/81/90, 0. 129/78/79, CPK 61, CRP 0. lipids 11 /2018 0.7, 1. 0.8, 1. TSH 0.611/2018 (92, 8)08/2018 A1C 5.4 Traumatic tear of supraspinatus tendon of left shoulder, ini tial encounter Slow improvement sp L arthroscopy Dr. Dey preferred PT given by MRI partial thickness tear04/04/18 + yeboah 7.5 BID c HC 5 QHS prn Colon cancer screening 07/08/19 consents to Cologuardnormal colonoscopy in late 30s for abdominal pain Treatment Notes Test Name Order Date WWBC Lexa Screening Bilateral (Ultrasound if Indicated ) (3D Mammo) 2020-10-11 Dexa, Full Body 2020-10-11 Future Test Test Name Order Date H PYLORI SERUM QUANT IgG ALEXIA [id number] VITAMIN D 25-HYDROXY [id number] PTH INTACT [id number] Comprehensive Metabolic Profile (CMP) [id number] HEMOGLOBIN A1c [id number] LIPID PANEL (CARDIAC RISK) [id number] NT-PRO BNP [id number] FREE T4 & TSH PANEL [id number] Next Appt Details 5M, BW 1W prior Reason: Provider Name:Javed Sykes, 2021-03-14 1 0:45:00 AM, [address], , [place], [address], Insurance Providers Payer Name Payer Address Payer Phone Insured Name Patient Relati onship to Insured Coverage Start Date Coverage End Date [facility] [employer] [facility] [address] [facility] [phone] MELINA ELLSWORTH
--- OUTSIDE RECORDS SUMMARY | 2021-01-04 11:49 | CCD ---
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 Name Role Phone Memo Toledo MD Unavailable Unavailable Memo Toledo MD Unavailable Unavailable Memo Toledo MD Unavailable Unavailable Memo Toledo MD Unavailable Unavailable Memo Toledo MD Unavailable Unavailable Memo Toledo MD Unavailable Unavailable Memo Toledo MD Unavailable Unavailable Memo Toledo MD Unavailable Unavailable Memo Toledo MD Unavailable Unavailable Memo Toledo MD Unavailable Unavailable Memo Toledo MD Unavailable Unavailable Memo Toldeo MD Unavailable Unavailable Memo Toledo MD Unavailable Unavailable Memo Toledo MD Unavailable Unavailable Memo Toledo MD Unavailable Unavailable Memo Toledo MD Unavailable Unavailable Memo Toledo MD Unavailable Unavailable Memo Toledo MD Unavailable Unavailable Memo Toledo MD Unavailable Unavailable Memo Toledo MD Unavailable Unavailable Memo Toledo MD Unavailable Unavailable Memo Toledo MD Unavailable Unavailable Memo Toledo MD Unavailable Unavailable Memo Toledo MD Unavailable Unavailable Tre, Memo Vargas MD Unavailable Unavailable Tre, Memo Vargas MD Unavailable Unavailable Tre, Memo Vargas MD Unavailable Unavailable Tre, Memo Vargas MD Unavailable Unavailable Tre, Memo Vargas MD Unavailable Unavailable Tre, Memo Vargas MD Unavailable Unavailable Tre, Memo Vargas MD Unavailable Unavailable Tre, Memo Vargas MD Unavailable Unavailable Tre, Memo Vargas MD Unavailable Unavailable Tre, Memo Vargas MD Unavailable Unavailable Tre, Memo Vargas MD Unavailable Unavailable Tre, Memo Vargas MD Unavailable Unavailable Tre, Memo Vargas MD Unavailable Unavailable Tre, Memo Vargas MD Unavailable Unavailable Tre, Memo Vargas MD Unavailable Unavailable Tre, Memo Vargas MD Unavailable Unavailable Tre, Memo Vargas MD Unavailable Unavailable Tre, Memo Vargas MD Unavailable Unavailable Tre, Memo Vargas MD Unavailable Unavailable Tre, Memo Vargas MD Unavailable Unavailable Tre, Memo Vargas MD Unavailable Unavailable Tre, Memo Vargas MD Unavailable Unavailable Tre, Memo Vargas MD Unavailable Unavailable Tre, Memo Vargas MD Unavailable Unavailable Tre, Memo Vargas MD Unavailable Unavailable Tre, Memo Vargas MD Unavailable Unavailable Tre, Memo Vargas MD Unavailable Unavailable Tre, Memo Vargas MD Unavailable Unavailable Tre, Memo Vargas MD Unavailable Unavailable Tre, Memo Vargas MD Unavailable Unavailable Tre, Memo Vargas MD Unavailable Unavailable Tre, Memo Vargas MD Unavailable Unavailable Tre, Memo Vargas MD Unavailable Unavailable Tre, Memo Vargas MD Unavailable Unavailable Tre, Memo Vargas MD Unavailable Unavailable Tre, Memo Vargas MD Unavailable Unavailable Tre, Memo Vargas MD Unavailable Unavailable Tre, Memo Vargas MD Unavailable Unavailable Tre, Memo Vargas MD Unavailable Unavailable Tre, Memo Vargas MD Unavailable Unavailable Tre, Memo Vargas MD Unavailable Unavailable Tre, Memo Vargas MD Unavailable Unavailable Tre, Memo Vargas MD Unavailable Unavailable Fish, Sarah ELDRIDGE, PA-C Unavailable Unavailabl e Fish, Sarah ELDRIDGE, PA-C Unavailable Unavailabl e Fish, Sarah ELDRIDGE, PA-C Unavailable Unavailabl e Fish, Sarah ELDRIDGE, PA-C Unavailable Unavailabl e Fish, Sarah ELDRIDGE, PA-C Unavailable Unavailabl e Fish, Sarah ELDRIDGE, PA-C Unavailable Unavailabl e Fish, Sarah ELDRIDGE, PA-C Unavailable Unavailabl e Fish, [facility], PA-C Unavailable Unavailabl e Fish, [facility], PA-C Unavailable Unavailabl e Fish, [facility], PA-C Unavailable Unavailabl e Fish, [facility], PA-C Unavailable Unavailabl e Fish, [facility], PA-C Unavailable Unavailabl e Fish, [facility], PA-C Unavailable Unavailabl e Fish, [facility], PA-C Unavailable Unavailabl e Fish, [facility], PA-C Unavailable Unavailabl e Fish, [facility], PA-C Unavailable Unavailabl e Fish, [facility], PA-C Unavailable Unavailabl e Fish, [facility], PA-C Unavailable Unavailabl e Fish, [facility], PA-C Unavailable Unavailabl e Fish, [facility], PA-C Unavailable Unavailabl e Fish, [facility], PA-C Unavailable Unavailabl e Fish, [facility], PA-C Unavailable Unavailabl e Fish, [facility], PA-C Unavailable Unavailabl e Fish, [facility], PA-C Unavailable Unavailabl e Fish, [facility], PA-C Unavailable Unavailabl e Fish, [facility], PA-C Unavailable Unavailabl e Fish, [facility], PA-C Unavailable Unavailabl e Fish, [facility], PA-C Unavailable Unavailabl e Fish, [facility], PA-C Unavailable Unavailabl e Fish, [facility], PA-C Unavailable Unavailabl e Fish, [facility], PA-C Unavailable Unavailabl e Fish, [facility], PA-C Unavailable Unavailabl e Fish, [facility], PA-C Unavailable Unavailabl e Fish, [facility], PA-C Unavailable Unavailabl e Fish, [facility], PA-C Unavailable Unavailabl e Abbe ACEVES DO Unavailable Unavailable Abbe ACEVES DO Unavailable Unavailable Abbe ACEVES DO Unavailable Unavailable Abbe ACEVES DO Unavailable Unavailable Abbe ACEVES DO Unavailable Unavailable [...] Unavailable BRYDEN, A SILVIA DO Unavailable Unavailable Vaneengideon, Amy Azar MD Unavailable Unavailable Vaneenenaam, Amy Azar MD Unavailable Unavailable Vaneenenaam, Amy Azar MD Unavailable Unavailable Vaneenenaam, Amy Azar MD Unavailable Unavailable Vaneenenaam, Amy Azar MD Unavailable Unavailable Vaneenenaam, Amy Azar MD Unavailable Unavailable Vaneenenaam, Amy Azar MD Unavailable Unavailable Vaneenenaam, Amy Azar MD Unavailable Unavailable Vaneenenaam, Amy Azar MD Unavailable Unavailable Vaneenenaam, Amy Azar MD Unavailable Unavailable Vaneenenaam, Amy Azar MD Unavailable Unavailable Vaneenenaam, Amy Azar MD Unavailable Unavailable Vaneenenaam, Amy Azar MD Unavailable Unavailable Vaneenenaam, Amy Azar MD Unavailable Unavailable Vaneenenaam, Amy Azar MD Unavailable Unavailable Vaneenenaam, Amy Azar MD Unavailable Unavailable Vaneenenaam, Amy Azar MD Unavailable Unavailable Vaneenkimam, Amy Azar MD Unavailable Unavailable Vaneenkimam, Amy Azar MD Unavailable Unavailable Vaneenkimam, Amy Azar MD Unavailable Unavailable Vaneenkimam, Amy Azar MD Unavailable Unavailable Vaneenenaam, Amy Azar MD Unavailable Unavailable Vaneenenaam, Amy Azar MD Unavailable Unavailable Vaneenkimam, Amy Azar MD Unavailable Unavailable Tiburcioeengideon, Amy Azar MD Unavailable Unavailable Vaneenkimam, Amy Azar MD Unavailable Unavailable Vaneenkimam, Amy Azar MD Unavailable Unavailable Vaneenenaam, Amy Azar MD Unavailable Unavailable Vaneenenaam, Amy Azar MD Unavailable Unavailable VaneenenaamAmy MD Unavailable Unavailable Vaneenenaam, Amy Azar MD Unavailable Unavailable Vaneenenaam, Amy Azar MD Unavailable Unavailable Vaneenenaam, Amy Azar MD Unavailable Unavailable VaneenenaamAmy MD Unavailable Unavailable Vaneenenaam, Amy Azar MD Unavailable Unavailable Vaneenenaam, Amy Azar MD Unavailable Unavailable Vaneenenaam, Amy Azar MD Unavailable Unavailable Vaneenenaam, Amy Azar MD Unavailable Unavailable Vaneenenaam, Amy Azar MD Unavailable Unavailable Vaneenenaam, Amy Azar MD Unavailable Unavailable VaneenenaamAmy MD Unavailable Unavailable Vaneenenaam, Amy Azar MD Unavailable Unavailable Vaneenenaam, Amy Azar MD Unavailable Unavailable Vaneenenaam, Amy Azar MD Unavailable Unavailable Vaneenenaam, Amy Azar MD Unavailable Unavailable Vaneenenaam, Amy Azar MD Unavailable Unavailable Re-disclosure Warning The records that [...] is protected by Article 27-F of the [facility] Public Health law. If you continue you may have access to information: Regarding HIV / AIDS; Provided by facilities licensed or operated by the [facility] Office of Mental Health; or Provided by the [facility] Office for People With Developmental Disabilities. If such information is present, then the following [facility] mandated warning applies: This information has [...] law may result in a fine or prison sentence or both. A general authorization for the release of medical or other information is NOT sufficient authorization for further disc losure. Family History Family Member Name Family Member Gender Family Member Status Date o f Status Description Data Source(s) Unknown Unknown Problem MEDENT ([facility]) pgm,mother,father Unknown Male Problem MEDENT ([facility]) Encounters Encounter Providers Location Date Indications Data Source(s ) Unknown [address] [facility] [place] [id number] 10/15/2020 12:00:00 AM EDT eCW1 ([facility]) Unknown [address] [facility] [place] [address] 10/12/2020 12:00:00 AM EDT eCW1 ([facility]) Outpatient [address] [facility] [place] [id number] 10/11/2020 12:00:00 AM EDT eCW1 ([facility]) Unknown [address] [facility] [place] [address] 09/15/2020 12:00:00 AM EDT eCW1 ([facility]) Outpatient Attender: Sam Toledo MD [place] [facility] 11:00:00 AM EDT MEDENT ([facility] ) Unknown [address] [facility] [place] [address] 07/29/2020 12:00:00 AM EDT eCW1 ([facility]) Outpatient [address] [facility] [place] [id number] 07/21/2020 12:00:00 AM EDT eCW1 ([facility]) Unknown [address] [facility] [address] [address] 07/21/2020 12:00:00 AM EDT eCW1 ([facility]) Unknown [address] [facility] [place] [id number] 07/07/2020 12:00:00 AM EDT eCW1 ([facility]) OFFICE OUTPATIENT VISIT 15 MINUTES Attender: Amy del rosario MD Physical Therapy 05/21/2020 08:45:00 AM EST MEDENT ([facility]) Unknown [address] [facility] [place] [address] 05/21/2020 12:00:00 AM EST eCW1 ([facility]) Unknown [address] [facility] [place] [address] 05/13/2020 12:00:00 AM EST eCW1 ([facility]) Outpatient [address] [facility] [place] [address] 05/11/2020 12:00:00 AM EST eCW1 ([facility]) Outpatient Attender: Lilibeth ELDRIDGE PA-C Physical Therapy 04/28/2020 07:45:00 AM EST MEDENT ([facility]) Unknown [address] [facility] [place] [address] 04/22/2020 12:00:00 AM EST eCW1 ([facility] Unknown [address] [facility] [place] [id number] 03/23/2020 12:00:00 AM EST eCW1 ([facility]) Outpatient Attender: SILVIA Diaz/Freddy/Raul/Patrick ndshay 03/04/2020 09:00:00 AM EST MEDENT ([facility]) Unknown [address] [facility] [place] [id number] 02/25/2020 12:00:00 AM EST eCW1 ([facility]) Unknown [address] [facility] [place] [address] 02/24/2020 12:00:00 AM EST eCW1 ([facility]) Unknown [address] [facility] [place] [address] 02/24/2020 12:00:00 AM EST eCW1 ([facility]) OFFICE OUTPATIENT VISIT 15 MINUTES Attender: Amy del rosario MD Physical Therapy 01/27/2020 09:45:00 AM EST MEDENT ([facility]) OFFICE OUTPATIENT VISIT 15 MINUTES Attender: Amy del rosario MD Physical Therapy 01/15/2020 02:00:00 PM EDT MEDENT ([facility]) [facility] [place] [address] [facility] [place] [address] 12/08/2019 12:00:00 AM EDT eCW1 ([facility]) Immunizations Vaccine Date Status Description Data Source(s) 07/21/2020 04:45:00 PM EDT completed e CW1 ([facility]) 07/21/2020 04:45:00 PM EDT completed e CW1 ([facility]) 07/21/2020 04:45:00 PM EDT completed e CW1 ([facility]) 07/21/2020 04:45:00 PM EDT completed e CW1 ([facility]) 07/21/2020 04:45:00 PM EDT completed e CW1 ([facility]) 07/21/2020 04:45:00 PM EDT completed e CW1 ([facility]) 07/21/2020 04:45:00 PM EDT completed e CW1 ([facility]) COVID-19 VACCINE Giovanni 05/23/2020 12:00:00 AM EST completed [facility] Vaccine Series Complete: YESThis Data wa s Submitted to [facility] Via [employer]. Medications Medication Brand Name Start Date Product Form Dose Route Admi nistrative Instructions Pharmacy Instructions Status Indications Reaction Description Data Source(s) meloxicam 7.5 MG Oral Tablet MELOXICAM 10/14/2020 12:00:00 AM EDT tabl et 30 TAKE ONE TABLET BY MOUTH EVERY DAY NEEDED TAKE ONE TABLET BY MOUTH EVERY DAY NEEDED SOLD: 10/14/2020 [facility] meloxicam 7.5 MG Oral Tablet [Mobic] Mobic 7.5 MG Mobic 7.5 MG 10/14/2020 12:00:00 AM EDT 1.0 {tablet} active Mo bic 7.5 MG eCW1 ([facility]) meloxicam 7.5 MG Oral Tablet [Mobic] Mobic 7.5 MG Mobic 7.5 MG 10/14/2020 12:00:00 AM EDT 1.0 {tablet} active Mo bic 7.5 MG eCW1 ([facility]) meloxicam 7.5 MG Oral Tablet [Mobic] Mobic 7.5 MG Mobic 7.5 MG 10/14/2020 12:00:00 AM EDT 1.0 {tablet} active Mo bic 7.5 MG eCW1 ([facility]) meloxicam 7.5 MG Oral Tablet MELOXICAM 10/14/2020 12:00:00 AM EDT tabl et 30 TAKE ONE TABLET BY MOUTH EVERY DAY NEEDED TAKE ONE TABLET BY MOUTH EVERY DAY NEEDED SOLD: 11/19/2020 [facility] Fluticasone propionate 0.05 MG/ACTUAT Metered Dose Derek al Riley 50 mcg/actuation FLUTICASONE PROPIONATE 10/11/2020 12:00:00 AM EDT spray,suspension 16 SPRAY ONE SPRAY IN EACH NOSTRIL TWICE A DAY SPRAY ONE SPRAY IN EACH NOSTRIL TWICE A DAY SOLD: 10/12/2020 [facility] 90 mcg/actuation 10/11/2020 12:00:00 AM EDT HFA aerosol inha ler 18 INHALE TWO PUFFS BY MOUTH EVERY 6 HOURS NEEDED FOR WHEEZING INHALE TWO PUFFS BY MOUTH EVERY 6 HOURS NEEDED FOR WHEEZING SOLD: 11/19/2020 [facility] 20 mg 10/11/2020 12:00:00 AM EDT tablet 30 TAKE ONE TABLET BY MOUTH AT BEDTIME TAKE ONE TABLET BY MOUTH AT BEDTIME SOLD: 12/19/2020 [facility] 20 mg 10/11/2020 12:00:00 AM EDT tablet 30 TAKE ONE TABLET BY MOUTH AT BEDTIME TAKE ONE TABLET BY MOUTH AT BEDTIME SOLD: 10/12/2020 [facility] 5-120 mg 10/11/2020 12:00:00 AM EDT tablet extended release 12 hr 60 TAKE ONE TABLET BY MOUTH TWICE A DAY TAKE ONE TABLET BY MOUTH TWICE A DAY SOLD: 11/19/2020 [facility] tizanidine 2 MG Oral Tablet TIZANIDINE HCL 10/11/2020 12:00:00 AM EDT tablet 60 TAKE ONE TO TWO TABLETS BY MOUTH BEFORE BEDTIME NEE DED TAKE ONE TO TWO TABLETS BY MOUTH BEFORE BEDTIME NEEDED SOLD: 10/12/2020 [facility] Peak Flow Meter - UNK 10/11/2020 12:00:00 AM EDT active Peak Flow Meter - eCW1 ([facility]) 200 mg 10/11/2020 12:00:00 AM EDT capsule 30 TAKE ONE CAPSULE BY MOUTH ONCE DAILY WITH FOOD NEEDED FOR PAIN TAKE ONE CAPSULE BY MOUTH ONCE DAILY WIT H FOOD NEEDED FOR PAIN SOLD: 10/12/2020 [facility] Peak Flow Meter - UNK 10/11/2020 12:00:00 AM EDT active Peak Flow Meter - eCW1 ([facility]) Peak Flow Meter - UNK 10/11/2020 12:00:00 AM EDT active Peak Flow Meter - eCW1 ([facility]) 90 mcg/actuation 10/11/2020 12:00:00 AM EDT HFA aerosol inha ler 18 INHALE TWO PUFFS BY MOUTH EVERY 6 HOURS NEEDED FOR WHEEZING INHALE TWO PUFFS BY MOUTH EVERY 6 HOURS NEEDED FOR WHEEZING SOLD: 10/12/2020 [facility] 20 mg 10/11/2020 12:00:00 AM EDT tablet 30 TAKE ONE TABLET BY MOUTH AT BEDTIME TAKE ONE TABLET BY MOUTH AT BEDTIME SOLD: 11/19/2020 [facility] tizanidine 2 MG Oral Tablet TIZANIDINE HCL 10/11/2020 12:00:00 AM EDT tablet 60 TAKE ONE TO TWO TABLETS BY MOUTH BEFORE BEDTIME NEE DED TAKE ONE TO TWO TABLETS BY MOUTH BEFORE BEDTIME NEEDED SOLD: 12/19/2020 [facility] 5-120 mg 10/11/2020 12:00:00 AM EDT tablet extended release 12 hr 60 TAKE ONE TABLET BY MOUTH TWICE A DAY TAKE ONE TABLET BY MOUTH TWICE A DAY SOLD: 10/12/2020 [facility] tizanidine 2 MG Oral Tablet TIZANIDINE HCL 10/11/2020 12:00:00 AM EDT tablet 60 TAKE ONE TO TWO TABLETS BY MOUTH BEFORE BEDTIME NEE DED TAKE ONE TO TWO TABLETS BY MOUTH BEFORE BEDTIME NEEDED SOLD: 11/19/2020 [facility] 20 mg 09/16/2020 12:00:00 AM EDT tablet 30 TAKE ONE TABLET BY MOUTH AT BEDTIME TAKE ONE TABLET BY MOUTH AT BEDTIME SOLD: 09/19/2020 [facility] Ondansetron 4 MG Disintegrating Oral Tablet ONDANSETRON 08/15/2020 12:00:00 AM EDT tablet,disintegrating 20 TAKE ONE T ABLET BY MOUTH EVERY 6 TO 8 HOURS NEEDED FOR NAUSEA AND VOMITING TAKE ONE TABLET BY MOUTH EVERY 6 TO 8 HO URS NEEDED FOR NAUSEA AND VOMITING SOLD: 08/16/2020 [facility] 500 mg 08/15/2020 12:00:00 AM EDT tablet 20 TAKE ONE TABLET BY MOUTH TWICE A DAY TAKE ONE TABLET BY MOUTH TWICE A DAY SOLD: 08/16/2020 [facility] Metronidazole 500 MG Oral Tablet METRONIDAZOLE 08/15/2020 12:0 0:00 AM EDT tablet 30 TAKE ONE TABLET BY MOUTH EVERY 8 HOURS FOR 10 DAYS TAKE ONE TABLET BY MOUTH EVERY 8 HOURS FOR 10 DAYS SOLD: 08/16/2020 [facility] Acetaminophen 325 MG / Hydrocodone Eugene trate 5 MG Oral Tablet Hydrocodone- Acetaminophen 5-325 MG Hydrocodone-Acetaminophen 5-325 MG 07/21/2020 12:00:00 AM EDT 1.0 {tablet} active Hydrocodone -Acetaminophen 5-325 MG eCW1 ([facility]) Acetaminophen 325 MG / Hydrocodone Bitartrate 5 MG Ora l Tablet 5-325 mg HYDROCODONE/ACETAMINOPHEN 07/21/2020 12:00:00 AM EDT tablet 30 TAKE ONE TABLET BY MOUTH EVERY 4 HOURS NEEDED, MAXIMUM DAILY DOSE = SIX TABLETS TAKE ONE TABLET BY MOUTH EVERY 4 HOURS NEEDED, MAXIMUM DAILY DOSE = SIX TABLETS SOLD: 07/27/2020 [facility] Acetaminophen 325 MG / Hydrocodone Eugene trate 5 MG Oral Tablet HYDROcodone- Acetaminophen 5-325 MG HYDROcodone-Acetaminophen 5-325 MG 07/21/2020 12:00:00 AM EDT 1.0 {tablet} active HYDROcodone -Acetaminophen 5-325 MG eCW1 ([facility]) Acetaminophen 325 MG / Hydrocodone Eugene trate 5 MG Oral Tablet Hydrocodone- Acetaminophen 5-325 MG Hydrocodone-Acetaminophen 5-325 MG 07/21/2020 12:00:00 AM EDT 1.0 {tablet} active Hydrocodone -Acetaminophen 5-325 MG eCW1 ([facility]) Acetaminophen 325 MG / Hydrocodone Eugene trate 5 MG Oral Tablet Hydrocodone- Acetaminophen 5-325 MG Hydrocodone-Acetaminophen 5-325 MG 07/21/2020 12:00:00 AM EDT 1.0 {tablet} active Hydrocodone -Acetaminophen 5-325 MG eCW1 ([facility]) 50 mg 05/12/2020 12:00:00 AM EST tablet 14 TAKE ONE TABLET BY MOUTH TWICE A DAY NEEDED, MAXIMUM DAILY DOSE = TWO TABLETS TAKE ONE TABLET BY MOUTH TWICE A DAY NEEDED, MAXIMUM DAILY DOSE = TWO TABLETS SOLD: 05/13/2020 [facility] 50 mg 05/12/2020 12:00:00 AM EST tablet 60 TAKE ONE TABLET BY MOUTH TWICE A DAY NEEDED, MAXIMUM DAILY DOSE = TWO TABLETS TAKE ONE TABLET BY MOUTH TWICE A DAY NEEDED, MAXIMUM DAILY DOSE = TWO TABLETS SOLD: 07/27/2020 [facility] 50 mg 05/12/2020 12:00:00 AM EST tablet 60 TAKE ONE TABLET BY MOUTH TWICE A DAY NEEDED, MAXIMUM DAILY DOSE = TWO TABLETS TAKE ONE TABLET BY MOUTH TWICE A DAY NEEDED, MAXIMUM DAILY DOSE = TWO TABLETS SOLD: 09/19/2020 [facility] 20 mg 05/12/2020 12:00:00 AM EST tablet 30 TAKE ONE TABLET BY MOUTH EVERY DAY AT BEDTIME TAKE ONE TABLET BY MOUTH EVERY DAY AT BEDTIME SOLD: 05/13/2020 [facility] 50 mcg/actuation 05/12/2020 12:00:00 AM EST spray,suspension 16 SPRAY ONE SPRAY IN EACH NOSTRIL TWICE A DAY SPRAY ONE SPRAY IN EACH NOSTRIL TWICE A DAY SOLD: 05/13/2020 [facility] 5-120 mg 05/12/2020 12:00:00 AM EST tablet extended release 12 hr 60 TAKE ONE TABLET BY MOUTH TWICE A DAY TAKE ONE TABLET BY MOUTH TWICE A DAY SOLD: 05/13/2020 [facility] 20 mg 05/12/2020 12:00:00 AM EST tablet 30 TAKE ONE TABLET BY MOUTH EVERY DAY AT BEDTIME TAKE ONE TABLET BY MOUTH EVERY DAY AT BEDTIME SOLD: 06/14/2020 [facility] 20 mg 05/12/2020 12:00:00 AM EST tablet 30 TAKE ONE TABLET BY MOUTH EVERY DAY AT BEDTIME TAKE ONE TABLET BY MOUTH EVERY DAY AT BEDTIME SOLD: 08/18/2020 [facility] 50 mg 05/12/2020 12:00:00 AM EST tablet 60 TAKE ONE TABLET BY MOUTH TWICE A DAY NEEDED, MAXIMUM DAILY DOSE = TWO TABLETS TAKE ONE TABLET BY MOUTH TWICE A DAY NEEDED, MAXIMUM DAILY DOSE = TWO TABLETS SOLD: 06/10/2020 [facility] tizanidine 2 MG Oral Tablet TIZANIDINE HCL 05/12/2020 12:00:00 AM EST tablet 60 TAKE 1 TO 2 TABLETS BY MOUTH ONCE DAILY AT BEDTIME NEEDED TAKE 1 TO 2 TABLETS BY MOUTH ONCE DAILY AT BEDTIME NEEDED SOLD: 05/13/2020 [facility] 50 mcg/actuation 05/12/2020 12:00:00 AM EST spray,suspension 16 SPRAY ONE SPRAY IN EACH NOSTRIL TWICE A DAY SPRAY ONE SPRAY IN EACH NOSTRIL TWICE A DAY SOLD: 06/10/2020 [facility] 5-120 mg 05/12/2020 12:00:00 AM EST tablet extended release 12 hr 60 TAKE ONE TABLET BY MOUTH TWICE A DAY TAKE ONE TABLET BY MOUTH TWICE A DAY SOLD: 06/10/2020 [facility] 90 mcg/actuation 05/12/2020 12:00:00 AM EST HFA aerosol inha ler 6 INHALE TWO PUFFS BY MOUTH EVERY 6 HOURS NEEDED FOR WHEEZE INHALE TWO PUFFS BY MOUTH EVERY 6 HOURS NEEDED FOR WHEEZE SOLD: 05/13/2020 [facility] Lisinopril 20 MG Oral Tablet LISINOPRIL 05/12/2020 12:00:00 AM EST tab let 30 TAKE ONE TABLET BY MOUTH EVERY DAY AT BEDTIME TAKE ONE TABLET BY MOUTH EVERY DAY AT BEDTIME SOLD: 07/19/2020 [facility] Cyanocobalamin 250 MCG UNK 05/11/2020 12:00:00 AM EST 1.0 {t ablet} active Cyanocobalamin 250 MCG eCW1 ([facility]) Cyanocobalamin 250 MCG UNK 05/11/2020 12:00:00 AM EST 1.0 {t ablet} active Cyanocobalamin 250 MCG eCW1 ([facility]) Cyanocobalamin 250 MCG UNK 05/11/2020 12:00:00 AM EST 1.0 {t ablet} active Cyanocobalamin 250 MCG eCW1 ([facility]) Cyanocobalamin 250 MCG UNK 05/11/2020 12:00:00 AM EST 1.0 {t ablet} active Cyanocobalamin 250 MCG eCW1 ([facility]) Cyanocobalamin 250 MCG UNK 05/11/2020 12:00:00 AM EST 1.0 {t ablet} active Cyanocobalamin 250 MCG eCW1 ([facility]) Cyanocobalamin 250 MCG UNK 05/11/2020 12:00:00 AM EST 1.0 {t ablet} active Cyanocobalamin 250 MCG eCW1 ([facility]) Cyanocobalamin 250 MCG UNK 05/11/2020 12:00:00 AM EST 1.0 {t ablet} active Cyanocobalamin 250 MCG eCW1 ([facility]) Cyanocobalamin 250 MCG UNK 05/11/2020 12:00:00 AM EST 1.0 {t ablet} active Cyanocobalamin 250 MCG eCW1 ([facility]) Medrol Medrol 04/28/2020 12:00:00 AM EST active MEDENT ([facility]) 4 mg 04/28/2020 12:00:00 AM EST tablets,dose pack 21 TAKE BY MOUTH DIRECTED TAKE BY MOUTH DIRECTED SOLD: 05/07/2020 [facility] 10 mg 04/26/2020 12:00:00 AM EST tablet 12 TAKE ONE TABLET BY MOUTH EVERY 6 HOURS NEEDED FOR PAIN TAKE ONE TABLET BY MOUTH EVERY 6 HOURS A S NEEDED FOR PAIN SOLD: 04/26/2020 [facility] 20 mg 04/07/2020 12:00:00 AM EST tablet 30 TAKE ONE TABLET BY MOUTH EVERY DAY AT BEDTIME TAKE ONE TABLET BY MOUTH EVERY DAY AT BEDTIME SOLD: 04/10/2020 [facility] tizanidine 2 MG Oral Tablet TIZANIDINE HCL 04/07/2020 12:00:00 AM EST tablet 60 TAKE 1 TO 2 TABLETS BY MOUTH ONCE DAILY AT BEDTIME NEEDED TAKE 1 TO 2 TABLETS BY MOUTH ONCE DAILY AT BEDTIME NEEDED SOLD: 04/10/2020 [facility] 4 mg 03/18/2020 12:00:00 AM EST tablet 21 TAKE DIRECTED PER SHEET GIVEN TAKE DIRECTED PER SHEET GIVEN SOLD: 03/25/2020 [facility] Methylprednisolone 4 MG Oral Tablet [Medrol] Medrol 12:00:00 AM EST active MEDENT ( [facility]) Diclofenac Sodium 0.01 MG/MG Topical Gel [Voltaren] Voltaren 03/17/2020 12:00:00 AM EST active MEDENT ([facility] Metronidazole 500 MG Oral Tablet Metronidazole 03/04/2020 12:00:00 AM EST ORAL completed MEDENT ([facility]) Metronidazole 500 MG Oral Tablet METRONIDAZOLE 03/04/2020 12:0 0:00 AM EST tablet 30 TAKE ONE TABLET BY MOUTH THREE T IMES A DAY DIRECTED TAKE ONE TABLET BY MOUTH THREE TIMES A DAY DIRECTED SOLD: 03/06/2020 [facility] Ciprofloxacin 500 MG Oral Tablet Ciprofloxacin HCL 03/04/2020 12:00 :00 AM EST ORAL completed MEDENT ([facility] ) 500 mg 03/04/2020 12:00:00 AM EST tablet 20 TAKE ONE TABLET BY MOUTH TWICE A DAY TAKE ONE TABLET BY MOUTH TWICE A DAY SOLD: 03/06/2020 [facility] 875-125 mg 02/24/2020 12:00:00 AM EST tablet 30 TAKE ONE TABLET BY MOUTH THREE TIMES A DAY TAKE ONE TABLET BY MOUTH THREE TIMES A DAY SOLD: 02/25/2020 [facility] 5-325 mg 02/24/2020 12:00:00 AM EST tablet 8 TAKE ONE TABLET BY MOUTH EVERY 6 TO 8 HOURS NEEDED FOR PAIN, MAXIMUM DAILY DOSE = FOUR TABLETS TAKE ONE TABLET BY MOUTH EVERY 6 TO 8 HOURS NEEDED FOR PAIN, MAXIMUM DAILY DOSE = FOUR TABLETS SOLD: 02/25/2020 [facility] [facility] 15 mg 01/27/2020 12:00:00 AM EST tablet 30 TAKE ONE TABLET BY MOUTH EVERY DAY WITH FOOD TAKE ONE TABLET BY MOUTH EVERY DAY WITH FOOD SOLD: 04/26/2020 [facility] 15 mg 01/27/2020 12:00:00 AM EST tablet 30 TAKE ONE TABLET BY MOUTH EVERY DAY WITH FOOD TAKE ONE TABLET BY MOUTH EVERY DAY WITH FOOD SOLD: 01/29/2020 [facility] meloxicam 15 MG Oral Tablet [Mobic] Mobic 01/27/2020 12:00:00 AM EST ORAL active [facility] ([facility] ) tizanidine 2 MG Oral Tablet TIZANIDINE HCL 12/09/2019 12:00:00 AM EDT tablet 60 TAKE 1 TO 2 TABLETS BY MOUTH ONCE DAILY AT BEDTIME NEEDED TAKE 1 TO 2 TABLETS BY MOUTH ONCE DAILY AT BEDTIME NEEDED SOLD: 02/10/2020 [facility] 20 mg 12/09/2019 12:00:00 AM EDT tablet 30 TAKE ONE TABLET BY MOUTH EVERY DAY AT BEDTIME TAKE ONE TABLET BY MOUTH EVERY DAY AT BEDTIME SOLD: 02/10/2020 [facility] 2 mg 12/09/2019 12:00:00 AM [...] BEDTIME NEEDED SOLD: 12/11/2019 [facility] tizanidine 2 MG Oral Tablet TIZANIDINE HCL 12/09/2019 12:00:00 AM EDT tablet 60 TAKE 1 TO 2 TABLETS BY MOUTH ONCE DAILY AT BEDTIME NEEDED TAKE 1 TO 2 TABLETS BY MOUTH ONCE DAILY AT BEDTIME NEEDED SOLD: 03/10/2020 [facility] 20 mg 12/09/2019 [...] DAY AT BEDTIME SOLD: 12/11/2019 [facility] 20 mg 11/05/2019 12:00:00 AM [...] = 2 TABLETS SOLD: 11/12/2019 [facility] 50 mg 07/08/2019 12:00:00 AM EDT tablet 14 TAKE ONE TABLET BY MOUTH TWICE A DAY NEEDED. MAXIMUM DAILY DOSE = 2 TABLETS TAKE ONE TABLET BY MOUTH TWICE A DAY NEEDED. MAXIMUM DAILY DOSE = 2 TABLETS SOLD: 01/10/2020 [facility] 50 mcg/actuation 07/08/2019 12:00:00 AM EDT spray,suspension 16 SPRAY ONE SPRAY IN EACH NOSTRIL TWICE A DAY SPRAY ONE SPRAY IN EACH NOSTRIL TWICE A DAY SOLD: 01/10/2020 [facility] 40 mg 06/28/2019 12:00:00 AM EDT capsule,delayed release (DR/EC) 30 TAKE ONE CAPSULE BY MOUTH EVERY DAY TAKE ONE CAPSULE BY MOUTH EVERY DAY SOLD: 11/12/2019 [facility] 40 mg 06/28/2019 12:00:00 AM EDT capsule,delayed release (DR/EC) 30 TAKE ONE CAPSULE BY MOUTH EVERY DAY TAKE ONE CAPSULE BY MOUTH EVERY DAY SOLD: 03/10/2020 [facility] 40 mg 06/28/2019 12:00:00 AM EDT capsule,delayed release (DR/EC) 30 TAKE ONE CAPSULE BY MOUTH EVERY DAY TAKE ONE CAPSULE BY MOUTH EVERY DAY SOLD: 01/10/2020 [facility] 40 mg 06/28/2019 12:00:00 AM EDT capsule,delayed release (DR/EC) 30 TAKE ONE CAPSULE BY MOUTH EVERY DAY TAKE ONE CAPSULE BY MOUTH EVERY DAY SOLD: 05/07/2020 [facility] Insurance Providers Payer name Policy type / Coverage type Policy ID Covered constitution party ID Covered constitution party's relationship to pope Policy Pope Plan Information Ghi/Emblem [facility] (pr) [facility] Part B [id number] Family Dependent [id number] Ghi FHP-(DO Not Use) [employer] Part B [id number] Self [id number] Ghi FHP-(DO Not Use) [employer] Part B [id number] Self 0 [id number] Ghi FHP-(DO Not Use) [employer] Part B [id number] Self 0 [id number] Ghi FHP-(DO Not Use) [employer] Part B [id number] Self 0 [id number] Ghi FHP-(DO Not Use) [employer] Part B [id number] Self 0 [id number] Ghi FHP-(DO Not Use) [employer] Part B [id number] Self 0 [id number] Ghi FHP-(DO Not Use) [employer] Part B [id number] Self 0 [id number] Ghi FHP-(DO Not Use) [employer] Part B [id number] Self 0 [id number] Ghi FHP-(DO Not Use) [employer] Part B [id number] Self [id number] Ghi FHP-(DO Not Use) [employer] Part B [id number] Self [id number] Ghi FHP-(DO Not Use) [employer] Part B [id number] Self [id number] Ghi FHP-(DO Not Use) [employer] Part B [id number] Self [id number] [facility] I [id number] Self [id number] [facility] I [id number] Self [id number] [facility] I [id number] Self [id number] [facility] I [id number] Self [id number] MEDICAID M [id number] Self [id number] [facility] I [id number] Self [id number] MEDICAID M [id number] Self [id number] [facility] I [id number] Self [id number] [facility] MCDO [id number] SP [id number] [facility] Community Plan Commercial [id number] Self [id number] [facility] Community Plan Commercial [id number] Self [id number] [facility] Community Plan Commercial [id number] Self [id number] [facility] Community Plan Commercial [id number] Self [id number] [facility] Community Plan Commercial [id number] Self [id number] [facility] Community Plan Commercial [id number] Self [id number] ANSI-Medicaid [id number] ANSI-Medicaid [id number] ANSI-Commercial [id number] ANSI-Not a Secondary Insurance [id number] ANSI-Not a Secondary Insurance [id number] ANSI-Commercial [id number] [facility] [id number] ANSI-Medicaid [id number] ANSI-Not a Secondary Insurance [id number] ANSI-Commercial [id number] ANSI-Medicaid [id number] ANSI-Not a Secondary Insurance [id number] ANSI-Commercial [id number] ANSI-Commercial [id number] ANSI-Medicaid [id number] ANSI-Not a Secondary Insurance [id number] ANSI-Commercial [id number] ANSI-Not a Secondary Insurance [id number] ANSI-Medicaid [id number] [facility] Community Plan Commercial [id number] [facility] [id number] ANSI-Medicaid [id number] ANSI-Not a Secondary Insurance [id number] ANSI-Commercial [id number] [facility] [place] [id number] SP [id number] SELF PAY ONLY - SP1 [id number] SP [id number] [facility] Health Maintenance Organization ([facility] [id number] Self [id number] [facility] [place] [id number] SP [id number] [place] [id number] [place] [id number] MEDICAID [id number] SP [id number] SELF PAY UNAVAILABLE SP UNAVAILA BLE [id number] ANSI-Medicaid [id number] [facility] O [id number] S [id number] ANSI-Commercial [id number] ANSI-Not a Secondary Insurance [id number] ANSI-Medicaid [id number] [facility] Health Maintenance Organization ([facility]) [id number] Self 1 [id number] [facility] Community Plan Commercial [id number] Self [id number] [facility] Community Plan Commercial [id number] Self [id number] [facility] Community Plan Commercial [id number] Self [id number] ANSI-Commercial [id number] ANSI-Not a Secondary Insurance [id number] ANSI-Medicaid [id number] ANSI-Commercial [id number] ANSI-Medicaid [id number] ANSI-Not a Secondary Insurance [id number] ANSI-Medicaid [id number] ANSI-Commercial [id number] ANSI-Not a Secondary Insurance [id number] [facility] Community Plan Commercial [id number] [facility] [id number] [facility] Community Plan Commercial [id number] Self [id number] ANSI-Medicaid [id number] ANSI-Not a Secondary Insurance [id number] ANSI-Commercial [id number] ANSI-Commercial [id number] ANSI-Not a Secondary Insurance [id number] ANSI-Medicaid [id number] ANSI-Not a Secondary Insurance [id number] ANSI-Commercial [id number] Problems, Conditions, and Diagnoses Code Display Name Description Problem Type Effective Dates Data Source(s) 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 Problem 08/17 12:00:00 AM EDT [facility] ([facility]) [id number] Localized, primary osteoarthritis of the ankle and/or foot Localized, primary osteoarthritis of the ankle and/or foot Problem 2020 12:00:00 AM EDT [facility] ([facility]) 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, lumbar region Problem 07/21/2020 12:00:00 AM EDT [facility]CW1 ([facility]) M16.11 [id number] Primary osteoarthritis of right hip Pr oblem 05/11/2020 12:00:00 AM EST eCW1 ([facility]) Surgeries/Procedures Procedure Description Date Indications Data Source(s) OFFICE OUTPATIENT NEW 30 MINUTES 09/02/2020 12:00:00 A M EDT [facility] ([facility]) MRI Upper Extremity Any Joint 07/20/2020 12:00:00 AM E DT [facility] ([facility]) THERAPEUTIC PX 1/> AREAS EACH 15 MIN EXERCISES 12:00:00 AM EDT [facility] ([facility]) Therapeutic Activities Direct, Each 15 Minutes 12:00:00 AM EDT [facility] ([facility]) THERAPEUTIC PX 1/> AREAS EACH 15 MIN EXERCISES 12:00:00 AM EDT [facility] ([facility]) Therapeutic Activities Direct, Each 15 Minutes 12:00:00 AM EDT [facility] ([facility]) THERAPEUTIC PX 1/> AREAS EACH 15 MIN EXERCISES 12:00:00 AM EDT [facility] ([facility]) MANUAL THERAPY TQS 1/> REGIONS EACH 15 MINUTES 12:00:00 AM EDT [facility] ([facility]) Therapeutic Activities Direct, Each 15 Minutes 12:00:00 AM EDT [facility] ([facility]) APPLICATION MODALITY 1/> AREAS HOT/COLD PACKS 05/29/19 12:00:00 AM EST [facility] ([facility]) Therapeutic Activities Direct, Each 15 Minutes 12:00:00 AM EST [facility] ([facility]) MANUAL THERAPY TQS 1/> REGIONS EACH 15 MINUTES 12:00:00 AM EST [facility] ([facility]) THERAPEUTIC PX 1/> AREAS EACH 15 MIN EXERCISES 12:00:00 AM EST [facility] ([facility] ) Therapeutic Activities Direct, Each 15 Minutes 12:00:00 AM EST [facility] ([facility] ) APPLICATION MODALITY 1/> AREAS HOT/COLD PACKS 05/26/19 21 12:00:00 AM EST [facility] ([facility] ) THERAPEUTIC PX 1/> AREAS EACH 15 MIN EXERCISES 12:00:00 AM EST [facility] ([facility] ) MANUAL THERAPY TQS 1/> REGIONS EACH 15 MINUTES 12:00:00 AM EST [facility] ([facility] ) Therapeutic Activities Direct, Each 15 Minutes 12:00:00 AM EST [facility] ([facility] ) THERAPEUTIC PX 1/> AREAS EACH 15 MIN EXERCISES 12:00:00 AM EST [facility] ([facility] ) MANUAL THERAPY TQS 1/> REGIONS EACH 15 MINUTES 12:00:00 AM EST [facility] ([facility] ) APPL MODALITY 1/> AREAS ELEC STIMJ EA 15 MIN 12:00:00 AM EST [facility] ([facility] ) THERAPEUTIC PX 1/> AREAS EACH 15 MIN EXERCISES 12:00:00 AM EST [facility] ([facility] ) MANUAL THERAPY TQS 1/> REGIONS EACH 15 MINUTES 12:00:00 AM EST [facility] ([facility] ) Therapeutic Activities Direct, Each 15 Minutes 12:00:00 AM EST [facility] ([facility] ) Physical Therapy Eval - Low Complexity 05/13/2020 12:0 0:00 AM EST [facility] ([facility] ) INJECTION 1 TENDON SHEATH/LIGAMENT APONEUROSIS 12:00:00 AM EST [facility] ([facility] ) MRI Upper Extremity Any Joint 03/24/2020 12:00:[address] [facility] ([facility] ) RADEX ELBOW COMPLETE MINIMUM 3 VIEWS 03/17/2020 12:00: 00 AM EST [facility] ([facility] ) X-Ray Hip Unilateral With Pelvis 2-3 Views 03/17/2020 12:00:00 AM EST [facility] ([facility]) RADEX SHOULDER COMPLETE MINIMUM 2 VIEWS 01/27/2020 12: 00:00 AM EST [facility] ([facility]) ARTHROCENTESIS ASPIR&/INJECTION MAJOR JT/BURSA 020 12:00:00 AM EDT [facility] ([facility]) Results ID Date Data Source [id number] 06/14/2020 10:10:00 AM EDT [facility] Name Value Range Interpretation Code Description Data Kim rce(s) Supporting Document(s) SARS-CoV-2 NEGATIVE [facility] This lab was ordered by [facility] and reported by [facility]. ID Date Data Source [id number] 06/14/2020 12:00:00 AM EDT [facility] Name Value Range Interpretation Code Description Data Kim rce(s) Supporting Document(s) SARS coronavirus 2 RNA Not Detected [facility] This lab was ordered by [facility] and rep orted by [facility]. ID Date Data Source [id number] 06/14/2020 12:00:00 AM EDT [facility] Name Value Range Interpretation Code Description Data Kim rce(s) Supporting Document(s) SARS-CoV-2 RT-PCR negative [facility] This lab was ordered by [facility] and re [facility] ID Date Data Source [id number] 04/15/2020 12:00:00 AM EST [facility] Lilibeth Cotton Pa-C Patient Name: BROOKS ELLSWORTH [address] [facility] Date of : 1965[place] [address]- Date of Exam: 04/15/2020#: Fax: [phone] EXAM: ARTHROCENTESIS RTHIP-ASPIR / INJ STEROID/PAIN MEDSRIGHT HIP INJECTION:The procedure was performed by MIGUEL ANGEL Mcnulty under the generalsupervision of Dr. Cancino.The benefits and risks including, but not limited to pain, infection,bleeding, and anaphylaxis were explained to the patient and informedconsent was obtained.The right femoral neck was localized using fluoroscopic guidance. The skinwas prepped and draped in a sterile fashion. 1% Lidocaine was used as alocal anesthetic. Using fluoroscopic guidance, a #22 gauge spinal needlewas inserted and advanced to the femoral neck. 1 cc of Omnipaque 300 wasinjected to verify placement. 6 cc of a solution containing 5 cc of 1%Lidocaine and 1 cc of Kenalog 40 mg was injected into the joint space. Theneedle was then removed.The patient tolerated the procedure well and there were no immediatecomplications.Fluoroscopy time was 1 seconds at 3 pulses/second. This is equal to 0.25seconds continuous fluoroscopy time which is a 75% reduction in radiation.LALA Thomas/Leah martines for referring BROOKS ELLSWORTH to our office. Electronically Signed - JOSÉ CANCINO MD 04/19/20 9:35 Name Value Range Interpretation Code Description Data Kim rce(s) Supporting Document(s) ID Date Data Source [id number] 04/15/2020 12:00:00 AM [facility] Lilibeth Cotton Pa-C Patient Name: BROOKS ELLSWORTH [address] [facility] Date of : 1965[place] [address]- Date of Exam: 04/15/2020#: Fax: [phone] EXAM: ARTHROCENTESIS RTHIP-ASPIR / INJ STEROID/PAIN MEDSRIGHT HIP INJECTION:The procedure was performed by MIGUEL ANGEL Mcnulty under the generalsupervision of Dr. Cancino.The benefits and risks including, but not limited to pain, infection,bleeding, and anaphylaxis were explained to the patient and informedconsent was obtained.The right femoral neck was localized using fluoroscopic guidance. The skinwas prepped and draped in a sterile fashion. 1% Lidocaine was used as alocal anesthetic. Using fluoroscopic guidance, a #22 gauge spinal needlewas inserted and advanced to the femoral neck. 1 cc of Omnipaque 300 wasinjected to verify placement. 6 cc of a solution containing 5 cc of 1%Lidocaine and 1 cc of Kenalog 40 mg was injected into the joint space. Theneedle was then removed.The patient tolerated the procedure well and there were no immediatecomplications.Fluoroscopy time was 1 seconds at 3 pulses/second. This is equal to 0.25seconds continuous fluoroscopy time which is a 75% reduction in radiation.LALA Thomas/Leah martines for referring BROOKS ELLSWORTH to our office. Electronically Signed - JOSÉ CANCINO MD 04/19/20 9:35 Name Value Range Interpretation Code Description Data Kim rce(s) Supporting Document(s) ID Date Data Source [id number] 04/15/2020 12:00:00 AM EST [facility] Lilibeth Cotton Pa-C Patient Name: BROOKS ELLSWORTH [address] [facility] 1965[facility] [address] Date of Exam: [facility]#: Fax: [phone] EXAM: MRI HIP RIGHT WITHOUT CONTRASTCLINICAL INFORMATION: Pain.Comparison is 07/30/2018 which showed mild degenerative changes,trochanteric tendinobursitis, right slightly greater than left, andquadratus femoris strain on the right.3T multiplanar MRI imaging of the right hip was obtained using varioussequences.The femoral heads are unchanged in size, shape, and position. Bilateralmild asymmetric hip joint space narrowing is noted, status quo. Noabnormal focal chondral or subchondral signal has arisen in either thefemoral or acetabular component of either hip. There is no hip jointeffusion. Once again, there is mild T2 hypersignal seen in thetrochanteric tendinobursal region of each hip; and again, right slightlygreater than left.There is narrowing of the ischiofemoral interval which measures 1 cm andseen in conjunction with T2 hypersignal throughout the quadratus femorismuscle as it traverses the ischiofemoral region. The appearance of this isunchanged. In addition, there is mild T2 hypersignal within the proximalhamstring tendon region which has decreased slightly from the prior exam.The signal and appearance of the imaged musculature is unchanged. Thecortical and marrow signal seen throughout the exam is unchanged. There isno change in the sacroiliac joints. Mild degenerative changes are seen,status quo.There is no evidence of a mass or mass effect.IMPRESSION:1. 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 There is mild hamstring tendinitis which appears to have improved.3. There is slight bilateral tendinobursitis, as described above,essentially unchanged from the prior exam.4. Other findings as described above. If labral pathology is of clinicalconcern, then consider followup with hip MRI arthrography if clinicallyrelevant.Accredited by the [employer] in [place].JONATHAN Hernandez/Leah martines for referring BROOKS ELLSWORTH to our office. Electronically Signed - PAT PATIÑO DO 04/16/20 17:24 Name Value Range Interpretation Code Description Data Kim rce(s) Supporting Document(s) ID Date Data Source [id number] 04/02/2020 10:00:00 AM EST [facility] Name Value Range Interpretation Code Description Data Kim rce(s) Supporting Document(s) SARS coronavirus 2 RNA Not Detected [facility] This lab was ordered by [facility] and reported by [facility]. ID Date Data Source [id number] 01/08/2020 12:00:00 AM EDT [facility] Alethea Segovia Pa-C Patient Name: LACY ELLSWORTH [facility] Date of : 1965 89 Date of Exam: 01/08/2020JEAN-PAUL Lynn [id number]#: Fax: [phone] EXAM: MRI SHOULDER LEFT W/O&W/CONTRAST ARTHROGRAMCLINICAL INFORMATION: Contusion left shoulder, rule out re-tear.Pre and post contrast 3T MRI of the left shoulder with shoulder MRIarthrography was performed utilizing various sequences. The glenohumeralinjection was performed by MIGUEL ANGEL Mcnulty.There are no prior shoulder MRI arthrograms to review. A low [facility] MRI examination of 04/22/2018 has been submitted [...] appearance. There is significant patchy and linear [id number] seen in the supraspinatus tendon. There is [...] Other findings as described above.Accredited by the [employer] in MR.JONATHAN Hernandez/jmcThank you for referring BROOKS ELLSWORTH to our office. Electronically Signed - PAT PATIÑO DO 01/15/20 13:59 Name Value Range Interpretation Code Description Data Kim rce(s) Supporting Document(s) ID Date Data Source [id number] 01/08/2020 12:00:00 AM EDT [facility] Imaging Alethea Segovia Pa-C Patient Name: LACY ELLSWORTH [facility] Date of : 1965 Date [facility] Exam: [facility] [id number]#: Fax: [phone] EXAM: INJECTION PROCEDURE FOR SHOULDER ARTHROGRAMCLINICAL INFORMATION: Contusion left shoulder.The procedure was performed by Jina Holman [facility], under the directsupervision of Dr. Patiño.The benefits [...] 75% reduction in radiation.Dictated by Jina Holman, [facility], with Dr. Patiño.Pat Patiño, JONATHAN/Leah you for referring BROOKS ELLSWORTH to our office. Electronically Signed - PAT PATIÑO DO 01/12/20 15:36 Name Value Range Interpretation Code Description Data Kim rce(s) Supporting Document(s) Procedure Social History Code Duration Value Status Description Data Source(s ) Smoking 10/11/2020 12:00:00 AM EDT Never Smoker completed Never S moker eCW1 ([facility]) Smoking 10/11/2020 12:00:00 AM EDT Never Smoker completed Never S moker eCW1 ([facility]) Smoking 10/11/2020 12:00:00 AM EDT Never Smoker completed Never S moker eCW1 ([facility]) Smoking 09/02/2020 12:00:00 AM EDT Patient has never smoked co mpleted Patient has never smoked MEDENT ([facility]) Smoking 07/21/2020 12:00:00 AM EDT Never Smoker completed Never S moker eCW1 ([facility]) Smoking 07/21/2020 12:00:00 AM EDT Never Smoker completed Never S moker eCW1 ([facility]) Smoking 07/21/2020 12:00:00 AM EDT Never Smoker completed Never S moker eCW1 ([facility]) Smoking 07/21/2020 12:00:00 AM EDT Never Smoker completed Never S moker eCW1 ([facility]) Smoking 05/11/2020 12:00:00 AM EST Never Smoker completed Never S moker eCW1 ([facility]) Smoking 05/11/2020 12:00:00 AM EST Never Smoker completed Never S moker eCW1 ([facility]) Smoking 05/11/2020 12:00:00 AM EST Never Smoker completed Never S moker eCW1 ([facility]) Smoking 05/11/2020 12:00:00 AM EST Never Smoker completed Never S moker eCW1 ([facility]) Vital Signs ID Date Data Source UNK Name Value Range Interpretation Code Description Data Source(s) Body weight 202 [lb_av] 202 [lb_av] eCW1 (Counts include 234 beds at the [facility]) Body height 70 [in_i] 70 [in_i] eCW1 ([facility]) Body mass index (BMI) [Ratio] 28.98 kg/m2 28.98 kg/m2 eCW1 ([facility]) Heart rate 109 /min 109 /min eCW1 ([facility]) Respiratory rate 18 /min 18 /min eCW1 ([facility]) Body temperature 98.3 [degF] 98.3 [degF] eCW1 ( [facility]) Systolic blood pressure 130 mm[Hg] 130 mm[Hg] e CW1 ([facility]) Diastolic blood pressure 80 mm[Hg] 80 mm[Hg] eCW1 ([facility]) Body weight 185.00 [lb_av] 185.00 [lb_av] MEDEN T ([facility]) Body height 68 [in_i] 68 [in_i] MEDENT ([facility]) 5'8" Body mass index (BMI) [Ratio] 28.1 kg/m2 28.1 k g/m2 MEDENT ([facility]) Heart rate 102 /min 102 /min [facility] Body temperature 97.4 [degF] 97.4 [degF] MEDENT ([facility]) Oxygen saturation in Arterial blood by Pulse oximetry 98 % 98 % MEDENT ([facility]) Body temperature 97.6 [degF] 97.6 [degF] eCW1 ( [facility]) Systolic blood pressure 130 mm[Hg] 130 mm[Hg] e CW1 ([facility]) Diastolic blood pressure 90 mm[Hg] 90 mm[Hg] eCW1 ([facility]) Body weight 203 [lb_av] 203 [lb_av] eCW1 (Counts include 234 beds at the [facility]) Body height 70 [in_i] 70 [in_i] eCW1 ([facility]) Body mass index (BMI) [Ratio] 29.12 kg/m2 29.12 kg/m2 eCW1 ([facility]) Heart rate 100 /min 100 /min eCW1 ([facility]) Respiratory rate 18 /min 18 /min eCW1 ([facility]) Diastolic blood pressure 82 mm[Hg] 82 mm[Hg] eCW1 ([facility]) Body weight 196.0 [lb_av] 196.0 [lb_av] eCW1 ([facility]) Body height 70 [in_i] 70 [in_i] eCW1 ([facility]) Body mass index (BMI) [Ratio] 28.12 kg/m2 28.12 kg/m2 eCW1 ([facility]) Heart rate 97 /min 97 /min eCW1 ([facility]) Respiratory rate 20 /min 20 /min eCW1 ([facility]) Body temperature 98.0 [degF] 98.0 [degF] eCW1 ( [facility]) Systolic blood pressure 138 mm[Hg] 138 mm[Hg] e CW1 ([facility]) Body temperature 96.9 [degF] 96.9 [degF] MEDENT ([facility]) Systolic blood pressure 140 mm[Hg] 140 mm[Hg] M EDENT ([facility], ) Diastolic blood pressure 78 mm[Hg] 78 mm[Hg] MEDENT ([facility], ) Body height 66 [in_i] 66 [in_i] MEDENT ([facility], ) 5'6" Body weight 195.25 [lb_av] 195.25 [lb_av] MEDEN T ([facility], ) Body mass index (BMI) [Ratio] 31.5 kg/m2 31.5 k g/m2 MEDENT ([facility]) [place] body weight 130 [lb_av] 130 [lb_av] MEDEN T ([facility]) Body weight 88.565 kg 88.565 kg [facility] ([facility] Body surface area Derived from formula 1.98 m2 1.98 m2 [facility] ([facility]) Body height 67 [in_i] 67 [in_i] MEDENT ([facility]) 5'7" Body temperature 96.9 [degF] 96.9 [degF] MEDENT ([facility]) Body weight 185.00 [lb_av] 185.00 [lb_av] MEDEN T ([facility]) Body mass index (BMI) [Ratio] 29.0 kg/m2 29.0 k g/m2 MEDENT ([facility]) Body surface area Derived from formula 1.97 m2 1.97 m2 [facility] ([facility]) [place] body weight 130 [lb_av] 130 [lb_av] MEDEN T ([facility]) Body height 66 [in_i] 66 [in_i] MEDENT ([facility]) 5'6" Body weight 192.00 [lb_av] 192.00 [lb_av] MEDEN T ([facility]) Body mass index (BMI) [Ratio] 31.0 kg/m2 31.0 k g/m2 [facility] ([facility]) Body weight 87.091 kg 87.091 kg [facility] ([facility]) Systolic blood pressure 132 mm[Hg] 132 mm[Hg] M EDENT ([facility]) Diastolic blood pressure 66 mm[Hg] 66 mm[Hg] [facility] ([facility]) Body temperature 96.8 [degF] 96.8 [degF] [facility] ([facility]) Patient Treatment Plan of Care Planned Activity Planned Date Details Description Data Source (s) meloxicam 7.5 MG Oral Tablet [Mobic] 10/14/2020 12:00:00 AM EDT eCW1 ([facility]) meloxicam 7.5 MG Oral Tablet [Mobic] 10/14/2020 12:00:00 AM EDT eCW1 ([facility]) meloxicam 7.5 MG Oral Tablet [Mobic] 10/14/2020 12:00:00 AM EDT eCW1 ([facility]) Peak Flow Meter - 10/11/2020 12:00:00 AM EDT eCW1 ([facility]) Peak Flow Meter - 10/11/2020 12:00:00 AM EDT eCW1 ([facility]) Peak Flow Meter - 10/11/2020 12:00:00 AM EDT eCW1 ([facility]) Acetaminophen 325 MG / Hydrocodone Bitartrate 5 MG Ora l Tablet 07/21/2020 12:00:00 AM EDT eCW1 ([facility], [facility]) Acetaminophen 325 MG / Hydrocodone Bitartrate 5 MG Ora l Tablet 07/21/2020 12:00:00 AM EDT eCW1 ([facility]) Acetaminophen 325 MG / Hydrocodone Bitartrate 5 MG Ora l Tablet 07/21/2020 12:00:00 AM EDT eCW1 ([facility], [facility]) Acetaminophen 325 MG / Hydrocodone Bitartrate 5 MG Ora l Tablet 07/21/2020 12:00:00 AM EDT eCW1 ([facility]) Cyanocobalamin 250 MCG 05/11/2020 12:00:00 AM EST eCW1 ([facility]) Cyanocobalamin 250 MCG 05/11/2020 12:00:00 AM EST eCW1 ([facility]) Cyanocobalamin 250 MCG 05/11/2020 12:00:00 AM EST eCW1 ([facility]) Cyanocobalamin 250 MCG 05/11/2020 12:00:00 AM EST eCW1 ([facility])
--- OUTSIDE RECORDS SUMMARY | 2021-01-04 17:19 | CCD ---
Author Author [facility] Organization [facility] Address Unknown Phone Unavailable Care Team Providers Care Traveling Buyer Name Role Phone Memo Toldeo MD Unavailable Unavailable Memo Toledo [...] Unavailable Tre, Memo Vargas MD Unavailable Unavailable Ter, Memo Vargas MD Unavailable Unavailable Tre, Memo [...] ELDRIDGE, PA-C Unavailable Unavailabl e Fish, Sarah Lilibeth MPAS, PA-C Unavailable Unavailabl e Fish, [facility], PA-C Unavailable Unavailabl e Fish, [facility], PA-C Unavailable Unavailabl e Fish, [facility], PA-C Unavailable Unavailabl e Fish, [facility], PA-C Unavailable Unavailabl e Fish, [facility], PA-C Unavailable Unavailabl e Fish, [facility], PA-C Unavailable Unavailabl e Fish, [facility], PA-C Unavailable Unavailabl e Fish, [facility], PA-C Unavailable Unavailabl e Fish, [facility], PA-C Unavailable Unavailabl e Fish, [facility], PA-C Unavailable Unavailabl e Fish, [facility], PA-C Unavailable Unavailabl e Fish, [facility], PA-C Unavailable Unavailabl e Fish, [facility], PA-C Unavailable Unavailabl e Fish, [facility], PA-C Unavailable Unavailabl e Fish, [facility], PA-C Unavailable Unavailabl e Fish, [facility], PA-C Unavailable Unavailabl e Fish, [facility], PA-C Unavailable Unavailabl e Fish, [facility], PA-C Unavailable Unavailabl e Fish, [facility], PA-C Unavailable Unavailabl e Fish, [facility], PA-C Unavailable Unavailabl e Fish, [facility], PA-C Unavailable Unavailabl e Fish, [facility], PA-C Unavailable Unavailabl e Fish, [facility], PA-C Unavailable Unavailabl e Fish, [facility], PA-C Unavailable Unavailabl e Fish, [facility], PA-C Unavailable Unavailabl e Fish, [facility], PA-C Unavailable Unavailabl e Fish, [facility], PA-C Unavailable Unavailabl e Fish, [facility], PA-C Unavailable Unavailabl e Abbe ACEVES [...] Vaneenenaam, Amy Azar MD Unavailable Unavailable Vaneenenaam, Aym Azar MD Unavailable Unavailable Vaneenenaam, Amy Azar [...] Article 27-F of the [facility] Public Health law. If you continue you may have access to information: Regarding HIV / AIDS; Provided by facilities licensed or operated by the [facility] Office of Mental Health; or Provided by the [facility] Office for People With Developmental Disabilities. If such information is present, then the following [facility] mandated warning applies: This information has [...] law may result in a fine or fci sentence or both. A general authorization for the release of medical or other information is NOT sufficient authorization for further disc losure. Family History Family Member Name Family Member Gender Family Member Status Date o f Status Description Data Source(s) Unknown Unknown Problem MEDENT ([facility]) pgm,mother,father Unknown Male Problem MEDENT ([facility] ) Encounters Encounter Providers Location Date Indications Data Source(s ) Unknown [address] [facility] [place] [address] 10/15/2020 12:00:00 AM EDT eCW1 ([facility]) Unknown [address] [facility] [place] [address] 10/12/2020 12:00:00 AM EDT eCW1 ([facility]) Outpatient [address] [facility] [place] [address] 10/11/2020 12:00:00 AM EDT eCW1 ([facility]) Unknown [address] [facility] [place] [address] 09/15/2020 12:00:00 AM EDT eCW1 ([facility]) Outpatient Attender: Sam Toledo MD [place] [facility] 11:00:00 AM EDT MEDENT ([facility] ) Unknown [address] [facility] [place] [address] 07/29/2020 12:00:00 AM EDT eCW1 ([facility]) Outpatient [address] [facility] [address] 07/21/2020 12:00:00 AM EDT eCW1 ([facility]) Unknown [address] [facility] [place] [address] 07/21/2020 12:00:00 AM EDT eCW1 ([facility]) Unknown [address] [facility] [place] [address] 07/07/2020 12:00:00 AM EDT eCW1 ([facility]) OFFICE OUTPATIENT VISIT 15 MINUTES Attender: Amy del rosario MD Physical Therapy 05/21/2020 08:45:00 AM EST MEDENT ([facility]) Unknown [address] [facility] [place] [address] 05/21/2020 12:00:00 AM EST eCW1 ([facility]) Unknown [address] [facility] [place] [address] 05/13/2020 12:00:00 AM EST eCW1 ([facility]) Outpatient [address] [facility] [place] [address] 05/11/2020 12:00:00 AM EST eCW1 ([facility]) Outpatient Attender: Lilibeth ELDRIDGE PA-C Physical Therapy 04/28/2020 07:45:00 AM EST MEDENT ([facility]) Unknown [address] [facility] [place] [address] 04/22/2020 12:00:00 AM EST eCW1 ([facility]) Unknown [address] [facility] [place] [address] 03/23/2020 12:00:00 AM EST eCW1 ([facility]) Outpatient Attender: SILVIA Diaz/Freddy/Raul/Patrick ndshay 03/04/2020 09:00:00 AM EST MEDENT ([facility]) Unknown [address] [facility] [place] [address] 02/25/2020 12:00:00 AM EST eCW1 ([facility]) Unknown [address] [facility] [place] [address] 02/24/2020 12:00:00 AM EST eCW1 ([facility]) Unknown [address] [facility] [place] [address] 02/24/2020 12:00:00 AM EST eCW1 ([facility]) OFFICE OUTPATIENT VISIT 15 MINUTES Attender: Amy del rosario MD Physical Therapy 01/27/2020 09:45:00 AM EST MEDENT ([facility]) OFFICE OUTPATIENT VISIT 15 MINUTES Attender: Amy del rosario MD Physical Therapy 01/15/2020 02:00:00 PM EDT MEDENT ([facility]) [facility] [place] [address] [facility] [place] [address] 12/08/2019 12:00:00 AM EDT eCW1 ([facility]) Immunizations Vaccine Date Status Description Data Source(s) 07/21/2020 04:45:00 PM EDT completed e CW1 ([facility]) 07/21/2020 04:45:00 PM EDT completed e CW1 ([facility]) 07/21/2020 04:45:00 PM EDT completed e CW1 ([facility]) 07/21/2020 04:45:00 PM EDT completed e CW1 ([facility]) 07/21/2020 04:45:00 PM EDT completed e CW1 ([facility]) 07/21/2020 04:45:00 PM EDT completed e CW1 ([facility]) 07/21/2020 04:45:00 PM EDT completed e CW1 ([facility]) COVID-19 VACCINE Giovanni 05/23/2020 12:00:00 AM EST completed NYSIIS Vaccine Series Complete: YESThis Data wa s Submitted to [facility] Via [employer]. Medications Medication Brand Name Start Date Product [...] {tablet} active Mo bic 7.5 MG eCW1 ([facility]) meloxicam 7.5 MG Oral Tablet [Mobic] Mobic 7.5 MG Mobic 7.5 MG 10/14/2020 12:00:00 AM EDT 1.0 {tablet} active Mo bic 7.5 MG eCW1 ([facility]) meloxicam 7.5 MG Oral Tablet [Mobic] Mobic 7.5 MG Mobic 7.5 MG 10/14/2020 12:00:00 AM EDT 1.0 {tablet} active Mo bic 7.5 MG eCW1 ([facility]) meloxicam 7.5 MG Oral Tablet MELOXICAM 10/14/2020 12:00:00 AM EDT tabl et 30 TAKE ONE TABLET BY MOUTH EVERY DAY NEEDED TAKE ONE TABLET BY MOUTH EVERY DAY NEEDED SOLD: 11/19/2020 [facility] Fluticasone propionate 0.05 MG/ACTUAT Metered Dose Derek al Mckinnon 50 mcg/actuation FLUTICASONE PROPIONATE 10/11/2020 12:00:00 AM [...] EDT active Peak Flow Meter - eCW1 ([facility]) 200 mg 10/11/2020 12:00:00 AM EDT capsule 30 TAKE ONE CAPSULE BY MOUTH ONCE DAILY WITH FOOD NEEDED FOR PAIN TAKE ONE CAPSULE BY MOUTH ONCE DAILY WIT H FOOD NEEDED FOR PAIN SOLD: 10/12/2020 [facility] Peak Flow Meter - UNK 10/11/2020 12:00:00 AM EDT active Peak Flow Meter - eCW1 ([facility]) Peak Flow Meter - UNK 10/11/2020 12:00:00 AM EDT active Peak Flow Meter - eCW1 ([facility]) 90 mcg/actuation 10/11/2020 12:00:00 AM EDT HFA [...] BY MOUTH TWICE A DAY SOLD: 08/16/2020 [facility] Metronidazole 500 MG Oral Tablet METRONIDAZOLE 08/15/2020 12:0 0:00 AM EDT tablet 30 TAKE ONE TABLET BY MOUTH EVERY 8 HOURS FOR 10 DAYS TAKE ONE TABLET BY MOUTH EVERY 8 HOURS FOR 10 DAYS SOLD: 08/16/2020 [facility] Acetaminophen 325 MG / Hydrocodone Eugene trate 5 MG Oral Tablet Hydrocodone- Acetaminophen 5-325 MG Hydrocodone-Acetaminophen 5-325 MG 07/21/2020 12:00:00 AM EDT 1.0 {tablet} active Hydrocodone -Acetaminophen 5-325 MG eCW1 ([facility]) Acetaminophen 325 MG / Hydrocodone Bitartrate 5 MG Ora l Tablet 5-325 mg HYDROCODONE/ACETAMINOPHEN 07/21/2020 12:00:00 AM EDT tablet 30 TAKE ONE TABLET BY MOUTH EVERY 4 HOURS NEEDED, MAXIMUM DAILY DOSE = SIX TABLETS TAKE ONE TABLET BY MOUTH EVERY 4 HOURS NEEDED, MAXIMUM DAILY DOSE = SIX TABLETS SOLD: 07/27/2020 [facility] Acetaminophen 325 MG / Hydrocodone Eugene trate 5 MG Oral Tablet HYDROcodone- Acetaminophen 5-325 MG HYDROcodone-Acetaminophen 5-325 MG 07/21/2020 12:00:00 AM EDT 1.0 {tablet} active HYDROcodone -Acetaminophen 5-325 MG eCW1 ([facility]) Acetaminophen 325 MG / Hydrocodone Eugene trate 5 MG Oral Tablet Hydrocodone- Acetaminophen 5-325 MG Hydrocodone-Acetaminophen 5-325 MG 07/21/2020 12:00:00 AM EDT 1.0 {tablet} active Hydrocodone -Acetaminophen 5-325 MG eCW1 ([facility]) Acetaminophen 325 MG / Hydrocodone Eugene trate 5 MG Oral Tablet Hydrocodone- Acetaminophen 5-325 MG Hydrocodone-Acetaminophen 5-325 MG 07/21/2020 12:00:00 AM EDT 1.0 {tablet} active Hydrocodone -Acetaminophen 5-325 MG eCW1 ([facility]) 50 mg 05/12/2020 12:00:00 AM EST tablet [...] DAILY DOSE = TWO TABLETS SOLD: 06/10/2020 [facility] tizanidine 2 MG Oral Tablet TIZANIDINE [...] EACH NOSTRIL TWICE A DAY SOLD: 06/10/2020 [facility] 5-120 mg 05/12/2020 12:00:00 AM EST tablet extended release 12 hr 60 TAKE ONE TABLET BY MOUTH TWICE A DAY TAKE ONE TABLET BY MOUTH TWICE A DAY SOLD: 06/10/2020 [facility] 90 mcg/actuation 05/12/2020 12:00:00 AM EST HFA aerosol inha ler 6 INHALE TWO PUFFS BY MOUTH EVERY 6 HOURS NEEDED FOR WHEEZE INHALE TWO PUFFS BY MOUTH EVERY 6 HOURS NEEDED FOR WHEEZE SOLD: 05/13/2020 [facility] Lisinopril 20 MG Oral Tablet LISINOPRIL 05/12/2020 12:00:00 AM EST tab let 30 TAKE ONE TABLET BY MOUTH EVERY DAY AT BEDTIME TAKE ONE TABLET BY MOUTH EVERY DAY AT BEDTIME SOLD: 07/19/2020 [facility] Cyanocobalamin 250 MCG UNK 05/11/2020 12:00:00 AM EST 1.0 {t ablet} active Cyanocobalamin 250 MCG eCW1 ([facility]) Cyanocobalamin 250 MCG UNK 05/11/2020 12:00:00 AM EST 1.0 {t ablet} active Cyanocobalamin 250 MCG eCW1 ([facility]) Cyanocobalamin 250 MCG UNK 05/11/2020 12:00:00 AM EST 1.0 {t ablet} active Cyanocobalamin 250 MCG eCW1 ([facility]) Cyanocobalamin 250 MCG UNK 05/11/2020 12:00:00 AM EST 1.0 {t ablet} active Cyanocobalamin 250 MCG eCW1 ([facility]) Cyanocobalamin 250 MCG UNK 05/11/2020 12:00:00 AM EST 1.0 {t ablet} active Cyanocobalamin 250 MCG eCW1 ([facility]) Cyanocobalamin 250 MCG UNK 05/11/2020 12:00:00 AM EST 1.0 {t ablet} active Cyanocobalamin 250 MCG eCW1 ([facility]) Cyanocobalamin 250 MCG UNK 05/11/2020 12:00:00 AM EST 1.0 {t ablet} active Cyanocobalamin 250 MCG eCW1 ([facility]) Cyanocobalamin 250 MCG UNK 05/11/2020 12:00:00 AM EST 1.0 {t ablet} active Cyanocobalamin 250 MCG eCW1 ([facility]) Medrol Medrol 04/28/2020 12:00:00 AM EST active MEDENT ([facility]) 4 mg 04/28/2020 12:00:00 AM [...] ONCE DAILY AT BEDTIME NEEDED SOLD: 04/10/2020 [facility] 4 mg 03/18/2020 12:00:00 AM EST tablet 21 TAKE DIRECTED PER SHEET GIVEN TAKE DIRECTED PER SHEET GIVEN SOLD: 03/25/2020 [facility] Methylprednisolone 4 MG Oral Tablet [Medrol] Medrol 12:00:00 AM EST active MEDENT ( [facility]) Diclofenac Sodium 0.01 MG/MG Topical Gel [Voltaren] Voltaren 03/17/2020 12:00:00 AM EST active MEDENT ([facility] ) Metronidazole 500 MG Oral Tablet Metronidazole 03/04/2020 12:00:00 AM EST ORAL completed MEDENT ([facility] ) Metronidazole 500 MG Oral Tablet METRONIDAZOLE 03/04/2020 12:0 0:00 AM EST tablet 30 TAKE ONE TABLET BY MOUTH THREE T IMES A DAY DIRECTED TAKE ONE TABLET BY MOUTH THREE TIMES A DAY DIRECTED SOLD: 03/06/2020 [facility] Ciprofloxacin 500 MG Oral Tablet Ciprofloxacin HCL 03/04/2020 12:00 :00 AM EST ORAL completed MEDENT ([facility], ) 500 mg 03/04/2020 12:00:00 AM EST tablet 20 TAKE ONE TABLET BY MOUTH TWICE A DAY TAKE ONE TABLET BY MOUTH TWICE A DAY SOLD: 03/06/2020 [facility] 875-125 mg 02/24/2020 12:00:00 AM EST [...] DAILY DOSE = FOUR TABLETS SOLD: 02/25/2020 [facility] 15 mg 01/27/2020 12:00:00 AM [...] 01/27/2020 12:00:00 AM EST ORAL active MEDENT ([facility] ) tizanidine 2 MG Oral [...] type / Coverage type Policy ID Covered republican ID Covered republican's relationship to pope Policy Pope Plan Information Ghi/Emblem [facility] (pr) [facility] Part B [id number] Family Dependent [id number] Ghi FHP-(DO Not Use) [facility] [id number] Self [id number] Ghi FHP-(DO Not Use) [facility] [id number] Self 0 [id number] Ghi FHP-(DO Not Use) [employer] Part B [id number] Self 0 [id number] Ghi FHP-(DO Not Use) [employer] Part B [id number] Self 0 [id number] Ghi FHP-(DO Not Use) Med[employer]ap Part B [id number] Self 0 [id number] Ghi FHP-(DO Not Use) Medigap Part B [id number] Self 0 [id number] Ghi FHP-(DO Not Use) Medigap Part B [id number] Self 0 [id number] Ghi FHP-(DO Not Use) Medigap Part B [id number] Self 0 [id number] Ghi FHP-(DO Not Use) Medigap Part B [id number] Self [id number] Ghi FHP-(DO Not Use) Medigap Part B [id number] Self [id number] Ghi FHP-(DO Not Use) Medigap Part B [id number] Self [id number] Ghi FHP-(DO Not Use) Medigap Part B [id number] Self [id number] [facility] I [id number] Self [id number] [facility] I [id number] Self [id number] [facility] I [id number] Self [id number] [facility] I [id number] Self [id number] MEDICAID M [id number] Self [id number] [facility] I [id number] Self [id number] MEDICAID M [id number] Self [id number] [facility] I [id number] Self [id number] [facility] COMMUNITY PLAN MCDO [id number] SP [id number] [facility] Community Plan Commercial [id number] Self [id number] [facility] Community Plan Commercial [id number] Self [id number] [facility] Community Plan Commercial [id number] Self [id number] [facility] Community Plan Commercial [id number] Self [id number] [facility] Community Plan Commercial [id number] Self [id number] [facility] Community Plan Commercial [id number] Self [id number] ANSI-Medicaid [id number] ANSI-Medicaid [id number] ANSI-Commercial [id number] ANSI-Not a Secondary Insurance [id number] ANSI-Not a Secondary Insurance [id number] ANSI-Commercial [id number] [facility] [id number] ANSI-Medicaid [id number] ANSI-Not a Secondary Insurance [id number] ANSI-Commercial [id number] ANSI-Medicaid [id number] ANSI-Not a Secondary Insurance [id number] ANSI-Commercial [id number] ANSI-Commercial [id number] ANSI-Medicaid [id number] ANSI-Not a Secondary Insurance [id number] ANSI-Commercial [id number] ANSI-Not a Secondary Insurance [id number] ANSI-Medicaid [id number] [facility] Community Plan Commercial [id number] [facility] [id number] ANSI-Medicaid [id number] ANSI-Not a Secondary Insurance [id number] ANSI-Commercial [id number] [facility] [id number] SP [id number] SELF PAY ONLY - [id number] SP [id number] [facility] Health Maintenance Organization [facility] [id number] Self [id number] [facility] COMMUNITY PLAN MCDO [id number] SP [id number] [facility] [id number] [id number] MEDICAID [id number] SP [id number] SELF PAY UNAVAILABLE SP UNAVAILA BLE [id number] ANSI-Medicaid [id number] [facility] O [id number] S [id number] ANSI-Commercial [id number] ANSI-Not a Secondary Insurance [id number] ANSI-Medicaid [id number] [facility] Health Maintenance Organization ([facility] [id number] Self 1 [id number] [facility] Community Plan Commercial [id number] Self [id number] [facility] Community Plan Commercial [id number] Self [id number] [facility] Community Plan Commercial [id number] Self [id number] ANSI-Commercial [id number] ANSI-Not a Secondary Insurance [id number] ANSI-Medicaid [id number] ANSI-Commercial [id number] ANSI-Medicaid [id number] ANSI-Not a Secondary Insurance [id number] ANSI-Medicaid [id number] ANSI-Commercial [id number] ANSI-Not a Secondary Insurance [id number] [facility] Community Plan Commercial [id number] [facility] [id number] [facility] Community Plan Commercial [id number] Self [id number] ANSI-Medicaid [id number] ANSI-Not a Secondary Insurance [id number] ANSI-Commercial [id number] ANSI-Commercial [id number] ANSI-Not a Secondary Insurance [id number] ANSI-Medicaid [id number] ANSI-Not a Secondary Insurance [id number] ANSI-Commercial [id number] Problems, Conditions, and Diagnoses Code Display Name Description Problem Type Effective Dates Data Source(s) 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 Problem 08/17 12:00:00 AM EDT [facility] [id number] Localized, primary osteoarthritis of the ankle and/or foot Localized, primary osteoarthritis of the ankle and/or foot Problem 2020 12:00:00 AM EDT [facility] ([facility]) 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, lumbar region Problem 07/21/2020 12:00:00 AM EDT eCW1 ([facility]) M16.11 [id number] Primary osteoarthritis of right hip Pr oblem 05/11/2020 12:00:00 AM EST eCW1 ([facility]) Surgeries/Procedures Procedure Description Date Indications Data Source(s) OFFICE OUTPATIENT NEW 30 MINUTES 09/02/2020 12:00:00 A M EDT [facility] ([facility]) MRI Upper Extremity Any Joint 07/20/2020 12:00:00 AM E DT [facility] ([facility]) THERAPEUTIC PX 1/> AREAS EACH 15 MIN EXERCISES 12:00:00 AM EDT [facility] ([facility]) Therapeutic Activities Direct, Each 15 Minutes 12:00:00 AM EDT [facility] ([facility]) THERAPEUTIC PX 1/> AREAS EACH 15 MIN EXERCISES 12:00:00 AM EDT [facility] ([facility]) Therapeutic Activities Direct, Each 15 Minutes 12:00:00 AM EDT [facility] ([facility]) THERAPEUTIC PX 1/> AREAS EACH 15 MIN EXERCISES 12:00:00 AM EDT [facility] ([facility]) MANUAL THERAPY TQS 1/> REGIONS EACH 15 MINUTES 12:00:00 AM EDT [facility] [facility] Therapeutic Activities Direct, Each 15 Minutes 12:00:00 AM EDT [facility] ([facility]) APPLICATION MODALITY 1/> AREAS HOT/COLD PACKS 05/29/19 12:00:00 AM EST [facility] ([facility]) Therapeutic Activities Direct, Each 15 Minutes 12:00:00 AM EST [facility] ([facility]) MANUAL THERAPY TQS 1/> REGIONS EACH 15 MINUTES 12:00:00 AM EST [facility] ([facility]) THERAPEUTIC PX 1/> AREAS EACH 15 MIN EXERCISES 12:00:00 AM EST [facility] ([facility] ) Therapeutic Activities Direct, Each 15 Minutes 12:00:00 AM EST [facility] ([facility] ) APPLICATION MODALITY 1/> AREAS HOT/COLD PACKS 05/26/19 21 12:00:00 AM EST [facility] ([facility] ) THERAPEUTIC PX 1/> AREAS EACH 15 MIN EXERCISES 12:00:00 AM EST [facility] ([facility] ) MANUAL THERAPY TQS 1/> REGIONS EACH 15 MINUTES 12:00:00 AM EST [facility] ([facility] ) Therapeutic Activities Direct, Each 15 Minutes 12:00:00 AM EST [facility] ([facility] ) THERAPEUTIC PX 1/> AREAS EACH 15 MIN EXERCISES 12:00:00 AM EST [facility] ([facility] ) MANUAL THERAPY TQS 1/> REGIONS EACH 15 MINUTES 12:00:00 AM EST [facility] ([facility] ) APPL MODALITY 1/> AREAS ELEC STIMJ EA 15 MIN 12:00:00 AM EST [facility] ([facility] ) THERAPEUTIC PX 1/> AREAS EACH 15 MIN EXERCISES 12:00:00 AM EST [facility] ([facility] ) MANUAL THERAPY TQS 1/> REGIONS EACH 15 MINUTES 12:00:00 AM EST [facility] ([facility] ) Therapeutic Activities Direct, Each 15 Minutes 12:00:00 AM EST [facility] ([facility] ) Physical Therapy Eval - Low Complexity 05/13/2020 12:0 0:00 AM EST [facility] ([facility] ) INJECTION 1 TENDON SHEATH/LIGAMENT APONEUROSIS 12:00:00 AM EST [facility] ([facility] ) MRI Upper Extremity Any Joint 03/24/2020 12:00:[address] [facility] ([facility] ) RADEX ELBOW COMPLETE MINIMUM 3 VIEWS 03/17/2020 12:00: 00 AM EST [facility] ([facility] ) X-Ray Hip Unilateral With Pelvis 2-3 Views 03/17/2020 12:00:00 AM EST [facility] ([facility]) RADEX SHOULDER COMPLETE MINIMUM 2 VIEWS 01/27/2020 12: 00:00 AM EST [facility] ([facility]) ARTHROCENTESIS ASPIR&/INJECTION MAJOR JT/BURSA 020 12:00:00 AM EDT [facility] ([facility]) Results ID Date Data Source [id number] 06/14/2020 10:10:00 AM EDT [facility] Name Value Range Interpretation Code Description Data Kim rce(s) Supporting Document(s) SARS-CoV-2 NEGATIVE [facility] This lab was ordered by [facility] and reported by [employer]. ID Date Data Source [id number] 06/14/2020 12:00:00 AM EDT [facility] Name Value Range Interpretation Code Description Data Kim rce(s) Supporting Document(s) SARS coronavirus 2 RNA Not Detected [facility] This lab was ordered by [facility] and rep orted by [facility]. ID Date Data Source [id number] 06/14/2020 12:00:00 AM EDT [facility] Name Value Range Interpretation Code Description Data Kim rce(s) Supporting Document(s) SARS-CoV-2 RT-PCR negative [facility] This lab was ordered by [facility] and re ported by [facility]. ID Date Data Source [id number] 04/15/2020 12:00:00 AM EST [facility] Lilibeth Cotton Pa-C Patient Name: BROOKS ELLSWORTH [address] [facility] Date of : 1965[place] [address]- Date of Exam: 04/15/2020#: Fax: [phone] EXAM: [...] rce(s) Supporting Document(s) ID Date Data Source [id number] 04/15/2020 12:00:00 AM [facility] Lilibeth Cotton Pa-C Patient Name: BROOKS ELLSWORTH [id number] [facility] Date of : 1965[place] [address]- Date of Exam: 04/15/2020#: Fax: [phone] EXAM: [...] rce(s) Supporting Document(s) ID Date Data Source [id number] 04/15/2020 12:00:00 AM EST [facility] Lilibeth Cotton Pa-C Patient Name: BROOKS ELLSWORTH [id number] [facility] 1965[facility] [address] Date of Exam: [facility]#: Fax: [phone] EXAM: MRI HIP RIGHT WITHOUT [...] hip MRI arthrography if clinicallyrelevant.Accredited by the [employer] in MR.JONATHAN Hernandez/Leah martines for referring BROOKS ELLSWORTH to our office. Electronically Signed - PAT PATIÑO DO 04/16/20 17:24 Name Value Range Interpretation Code Description Data Kim rce(s) Supporting Document(s) ID Date Data Source [id number] 04/02/2020 10:00:00 AM EST [facility] Name Value Range Interpretation Code Description Data Kim rce(s) Supporting Document(s) SARS coronavirus 2 RNA Not Detected [facility] This lab was ordered by [facility] and reported by [facility]. ID Date Data Source [id number] 01/08/2020 12:00:00 AM EDT [facility] Alethea Segovia Pa-C Patient Name: LACY ELLSWORTH [facility] Date of : 1965 201 [facility] [id number] Fax: [phone] EXAM: MRI SHOULDER LEFT W/O&W/CONTRAST ARTHROGRAMCLINICAL INFORMATION: Contusion left shoulder, rule out re-tear.Pre and post contrast 3T MRI of the left shoulder with shoulder MRIarthrography was performed utilizing various sequences. The glenohumeralinjection was performed by Xavi Gerber, [facility].There are no prior shoulder MRI arthrograms to review. A low [facility] examination of 04/22/2018 has been submitted [...] appearance. There is significant patchy and linear [id number] seen in the supraspinatus tendon. There is [...] Other findings as described above.Accredited by the [employer] [employer] in MR.JONATHAN Hernandez/jmcThank you for referring BROOKS ELLSWORTH to our office. Electronically Signed - PAT PATIÑO DO 01/15/20 13:59 Name Value Range Interpretation Code Description Data Kim rce(s) Supporting Document(s) ID Date Data Source [id number] 01/08/2020 12:00:00 AM EDT [facility] Alethea Segovia Pa-C Patient Name: LACY ELLSWORTH [facility] Date of : 1965 Date of Exam: [facility] [id number]#: Fax: [phone] EXAM: INJECTION PROCEDURE FOR SHOULDER ARTHROGRAMCLINICAL INFORMATION: Contusion left shoulder.The procedure was performed by Jina Holman [facility], under the directsupervision of Dr. Patiño.The [...] 75% reduction in radiation.Dictated by Jina Holman, [facility], with Dr. Patiño.Pat Patiño, JONATHAN/jmcTjewel you for referring BROOKS ELLSWORTH to our office. Electronically Signed - PAT PATIÑO DO 01/12/20 15:36 Name Value Range Interpretation Code Description Data Kim rce(s) Supporting Document(s) Procedure Social History Code Duration Value Status Description Data Source(s ) Smoking 10/11/2020 12:00:00 AM EDT Never Smoker completed Never S moker eCW1 ([facility]) Smoking 10/11/2020 12:00:00 AM EDT Never Smoker completed Never S moker eCW1 ([facility]) Smoking 10/11/2020 12:00:00 AM EDT Never Smoker completed Never S moker eCW1 ([facility]) Smoking 09/02/2020 12:00:00 AM EDT Patient has never smoked co mpleted Patient has never smoked [facility] ([facility]) Smoking 07/21/2020 12:00:00 AM EDT Never Smoker completed Never S moker eCW1 ([facility]) Smoking 07/21/2020 12:00:00 AM EDT Never Smoker completed Never S moker eCW1 ([facility]) Smoking 07/21/2020 12:00:00 AM EDT Never Smoker completed Never S moker eCW1 ([facility]) Smoking 07/21/2020 12:00:00 AM EDT Never Smoker completed Never S moker eCW1 ([facility]) Smoking 05/11/2020 12:00:00 AM EST Never Smoker completed Never S moker eCW1 ([facility]) Smoking 05/11/2020 12:00:00 AM EST Never Smoker completed Never S moker eCW1 ([facility]) Smoking 05/11/2020 12:00:00 AM EST Never Smoker completed Never S moker eCW1 ([facility]) Smoking 05/11/2020 12:00:00 AM EST Never Smoker completed Never S moker eCW1 ([facility]) Vital Signs ID Date Data Source UNK Name Value Range Interpretation Code Description Data Source(s) Body weight 202 [lb_av] 202 [lb_av] eCW1 ([facility]) Body height 70 [in_i] 70 [in_i] eCW1 ([facility]) Body mass index (BMI) [Ratio] 28.98 kg/m2 28.98 kg/m2 eCW1 ([facility]) Heart rate 109 /min 109 /min eCW1 (Count includes the [facility]) Respiratory rate 18 /min 18 /min eCW1 ([facility]) Body temperature 98.3 [degF] 98.3 [degF] eCW1 ( [facility]) Systolic blood pressure 130 mm[Hg] 130 mm[Hg] e CW1 ([facility]) Diastolic blood pressure 80 mm[Hg] 80 mm[Hg] eCW1 ([facility]) Body weight 185.00 [lb_av] 185.00 [lb_av] MEDEN T ([facility]) Body height 68 [in_i] 68 [in_i] [facility] ([facility]) 5'8" Body mass index (BMI) [Ratio] 28.1 kg/m2 28.1 k g/m2 [facility] ([facility]) Heart rate 102 /min 102 /min [facility] Body temperature 97.4 [degF] 97.4 [degF] [facility] ([facility]) Oxygen saturation in Arterial blood by Pulse oximetry 98 % 98 % [facility] ([facility]) Body temperature 97.6 [degF] 97.6 [degF] eCW1 ( [facility]) Body weight 203 [lb_av] 203 [lb_av] eCW1 ([facility]) Body height 70 [in_i] 70 [in_i] eCW1 ([facility]) Body mass index (BMI) [Ratio] 29.12 kg/m2 29.12 kg/m2 eCW1 ([facility]) Heart rate 100 /min 100 /min eCW1 (Count includes the [facility]) Respiratory rate 18 /min 18 /min eCW1 ([facility]) Systolic blood pressure 130 mm[Hg] 130 mm[Hg] e CW1 ([facility]) Diastolic blood pressure 90 mm[Hg] 90 mm[Hg] eCW1 ([facility]) Body weight 196.0 [lb_av] 196.0 [lb_av] eCW1 ([facility]) Body height 70 [in_i] 70 [in_i] eCW1 ([facility]) Body mass index (BMI) [Ratio] 28.12 kg/m2 28.12 kg/m2 eCW1 ([facility]) Heart rate 97 /min 97 /min eCW1 (Count includes the [facility]) Respiratory rate 20 /min 20 /min eCW1 ([facility]) Body temperature 98.0 [degF] 98.0 [degF] eCW1 ( [facility]) Systolic blood pressure 138 mm[Hg] 138 mm[Hg] e CW1 ([facility]) Diastolic blood pressure 82 mm[Hg] 82 mm[Hg] eCW1 ([facility]) Body temperature 96.9 [degF] 96.9 [degF] MEDENT ([facility]) Systolic blood pressure 140 mm[Hg] 140 mm[Hg] M EDENT ([facility], ) Diastolic blood pressure 78 mm[Hg] 78 mm[Hg] MEDENT ([facility], ) Body height 66 [in_i] 66 [in_i] MEDENT ([facility], ) 5'6" Body weight 195.25 [lb_av] 195.25 [lb_av] MEDEN T ([facility], ) Body mass index (BMI) [Ratio] 31.5 kg/m2 31.5 k g/m2 MEDENT ([facility]) [place] body weight 130 [lb_av] 130 [lb_av] MEDEN T ([facility]) Body weight 88.565 kg 88.565 kg [facility] ([facility]) Body surface area Derived from formula 1.98 m2 1.98 m2 [facility] ([facility]) Body height 67 [in_i] 67 [in_i] [facility] ([facility]) 5'7" Body temperature 96.9 [degF] 96.9 [degF] [facility] ([facility]) Body weight 185.00 [lb_av] 185.00 [lb_av] MEDEN T ([facility]) Body mass index (BMI) [Ratio] 29.0 kg/m2 29.0 k g/m2 [facility] ([facility]) Body surface area Derived from formula 1.97 m2 1.97 m2 [facility] ([facility]) [place] body weight 130 [lb_av] 130 [lb_av] MEDEN T ([facility]) Body height 66 [in_i] 66 [in_i] [facility] 5'6" Body weight 192.00 [lb_av] 192.00 [lb_av] MEDEN T ([facility]) Body mass index (BMI) [Ratio] 31.0 kg/m2 31.0 k g/m2 [facility] ([facility]) Body weight 87.091 kg 87.091 kg [facility] ([facility]) Systolic blood pressure 132 mm[Hg] 132 mm[Hg] M EDENT ([facility]) Diastolic blood pressure 66 mm[Hg] 66 mm[Hg] [facility] ([facility]) Body temperature 96.8 [degF] 96.8 [degF] [facility] ([facility]) Patient Treatment Plan of Care Planned Activity Planned Date Details Description Data Source (s) meloxicam 7.5 MG Oral Tablet [Mobic] 10/14/2020 12:00:00 AM EDT eCW1 ([facility]) meloxicam 7.5 MG Oral Tablet [Mobic] 10/14/2020 12:00:00 AM EDT eCW1 ([facility]) meloxicam 7.5 MG Oral Tablet [Mobic] 10/14/2020 12:00:00 AM EDT eCW1 ([facility]) Peak Flow Meter - 10/11/2020 12:00:00 AM EDT eCW1 ([facility]) Peak Flow Meter - 10/11/2020 12:00:00 AM EDT eCW1 ([facility]) Peak Flow Meter - 10/11/2020 12:00:00 AM EDT eCW1 ([facility]) Acetaminophen 325 MG / Hydrocodone Bitartrate 5 MG Ora l Tablet 07/21/2020 12:00:00 AM EDT eCW1 (On license of [facility]) Acetaminophen 325 MG / Hydrocodone Bitartrate 5 MG Ora l Tablet 07/21/2020 12:00:00 AM EDT eCW1 (On license of [facility]) Acetaminophen 325 MG / Hydrocodone Bitartrate 5 MG Ora l Tablet 07/21/2020 12:00:00 AM EDT eCW1 (On license of [facility]) Acetaminophen 325 MG / Hydrocodone Bitartrate 5 MG Ora l Tablet 07/21/2020 12:00:00 AM EDT eCW1 (On license of [facility]) Cyanocobalamin 250 MCG 05/11/2020 12:00:00 AM EST eCW1 ([facility]) Cyanocobalamin 250 MCG 05/11/2020 12:00:00 AM EST eCW1 ([facility]) Cyanocobalamin 250 MCG 05/11/2020 12:00:00 AM EST eCW1 ([facility]) Cyanocobalamin 250 MCG 05/11/2020 12:00:00 AM EST eCW1 ([facility])
[2021-01-04] MEDS ORDERED: KETOROLAC 30 MG/ML 1ML VIAL IM ONE (17:25)
[2021-01-04] MEDS ORDERED: methocarbamoL 500 MG TAB PO ONE (17:25)
--- NOTE | 2021-01-04 18:18 | REPVR ---
PROCEDURE INFORMATION: Exam: CT Head Without Contrast Exam date and time: 01/04/2021 5:47 PM Age: 56 years old Clinical indication: Injury or trauma; Other: Dragged by cow; Blunt trauma (contusions or hematomas) TECHNIQUE: Imaging protocol: Computed tomography of the head without contrast. Radiation optimization: All CT scans at this facility use at least one of these dose optimization techniques: automated exposure control; mA and/or kV adjustment per patient size (includes targeted exams where dose is matched to clinical indication); or iterative reconstruction. COMPARISON: CT Head without contrast 04/26/2020 8:56 AM FINDINGS: Brain: Lacunar infarct inferior left thalamic/hypothalamic region. Cerebral ventricles: No ventriculomegaly. Paranasal sinuses: Inflammatory changes in both maxillary sinuses, right greater than left with desiccated material demonstrated in the central right maxillary sinus. Fibrous dysplasia right maxillary sinus. Mastoid air cells: Visualized mastoid air cells are well aerated. Bones/joints: Unremarkable. No acute fracture. Soft tissues: Unremarkable. Submandibular/Parotid glands: There is downward displacement of the pituitary gland secondary to a defect in the diaphragmatic sella consistent with the empty sella syndrome. 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 Electronically signed by: Slava Germain On 01/04/2021 18:18:27 PM
--- NOTE | 2021-01-04 18:24 | REP ---
INDICATION: trauma. COMPARISON: 04/26/2020 TECHNIQUE: Three views of the left shoulder were performed. FINDINGS: The acromioclavicular and glenohumeral relationships are unchanged. There is no acute fracture or destructive osseous lesion. IMPRESSION: Stable left shoulder. No acute abnormality <Electronically signed by Benito Sheppard > 01/04/21 1983
--- NOTE | 2021-01-04 18:25 | REP ---
INDICATION: trauma. COMPARISON: None. TECHNIQUE: Four views FINDINGS: No acute fracture or destructive osseous lesion. IMPRESSION: No acute osseous abnormality <Electronically signed by Benito Sheppard > 01/04/21 [id number]
--- NOTE | 2021-01-04 18:25 | REPVR ---
PROCEDURE INFORMATION: Exam: CT Cervical Spine Without Contrast Exam date and time: 01/04/2021 5:47 PM Age: 56 years old Clinical indication: Injury or trauma; Other: Dragged by cow; Blunt trauma TECHNIQUE: Imaging protocol: Computed tomography images of the cervical spine without contrast. Radiation optimization: All CT scans at this facility use at least one of these dose optimization techniques: automated exposure control; mA and/or kV adjustment per patient size (includes targeted exams where dose is matched to clinical indication); or iterative reconstruction. COMPARISON: CT Spine,cervical w/o contrast 04/26/2020 8:56 AM FINDINGS: Bones/joints: Status post anterior interbody fusion of C5 through C7. Degenerative arthrosis both temporomandibular joints. Discs/Spinal canal/Neural foramina: There are degenerative changes demonstrated in the atlantoaxial joint at C1-C2 with osteophytes and joint space narrowing. The transverse ligament is normal. Mild bilateral foraminal narrowing at C5, C6 secondary to osteophytic encroachment. Status post placement disc expanders at C5-C6 and C6-C7 with intervertebral bony fusion. Small posterior disc protrusion at C4-C5 without cord impingement. Lungs: Lung apices are normal. Soft tissues: Unremarkable. IMPRESSION: 1. Degenerative spondylosis as described above. 2. Status post interbody fusion of C5 through C7. 3. No acute findings. Electronically signed by: Slava Germain On 01/04/2021 18:25:37 PM
--- NOTE | 2021-01-04 18:25 | REP ---
INDICATION: trauma. COMPARISON: None. TECHNIQUE: AP and lateral views FINDINGS: No acute fracture or destructive osseous lesion. IMPRESSION: No acute osseous abnormality <Electronically signed by Benito Sheppard > 01/04/21 [id number]
[2021-01-04 18:54] VITALS: BP 189/109
[2021-01-04 20:02] VITALS: BP 158/92
--- NOTE | 2021-01-08 08:20 | ED PDOC ---
Post-Departure Follow-Up radiology report faxed to Shanita Gates MD Jan 08, 2021 08:20
== END 2021-01-04 20:41 | disposition home or self-care (01) ==
LOC: M ED 11:41
DX: S13.9XXA Sprain of joints and ligaments of unspecified parts of neck, initial encounter (principal); W55.29XA Other contact with cow, initial encounter; Y92.018 Other place in single-family (private) house as the place of occurrence of the external cause; M77.10 Lateral epicondylitis, unspecified elbow; I10 Essential (primary) hypertension; E23.6 Other disorders of pituitary gland; Z88.5 Allergy status to narcotic agent; J30.89 Other allergic rhinitis; Z79.899 Other long term (current) drug therapy
CPT/HCPCS: 70450; 72125; 73030; 73090; 73110; 96372; 99283; J1885

== ENCOUNTER → 2021-01-14 | Outpatient (CLI) | payer OTHER ==
--- NOTE | 2021-01-14 09:20 | REP ---
INDICATION: BILATERAL PRIMARY OSTEOARTHRITIS OF KNEE. COMPARISON: None. TECHNIQUE: Four views FINDINGS: There is mild rather symmetric appearing intra digital joint space narrowing particularly affecting the D IP joints of all digits and the interphalangeal joint of the 1st digit. Small marginal osteophytes are seen involving the interphalangeal joint of the 1st digit and D IP joints. There are no marginal erosions. There is no periarticular osteopenia. There is no fracture, dislocation, or subluxation. IMPRESSION: Chronic changes as described above. <Electronically signed by Benito Sheppard > 01/14/21 [id number]
--- NOTE | 2021-01-14 09:24 | REP ---
INDICATION: BILATERAL PRIMARY OSTEOARTHRITIS OF KNEE COMPARISON: None TECHNIQUE: Five views FINDINGS: The compartments are symmetric and well maintained. There is no acute fracture, dislocation, or subluxation. A tiny marginal osteophyte is seen arising from the inferior pole of the articular surface of the patella. IMPRESSION: Minimal degenerative changes. <Electronically signed by Benito Sheppard > 01/14/21 [id number]
[2021-01-14 10:38] LABS: BASO % 0.7 % (0.0-1.0); EOS # 0.1 10^3/uL (0.0-0.5); EOS % 1.8 % (0.0-3.0); HEMOGLOBIN 14.2 g/dl (12.0-15.5); LYMPH # 1.2 10^3/uL (1.5-5.0); LYMPH % 22.2 % (24.0-44.0); MEAN CORPUSCULAR HEMOGLOBIN 28.7 pg (27.0-33.0); MEAN CORPUSCULAR VOLUME 86.9 fl (80.0-96.0); MONO # 0.3 10^3/uL (0.0-0.8); MONO % 5.7 % (2.0-8.0); NEUTROPHILS # 3.9 10^3/uL (1.5-8.5); NEUTROPHILS % 69.4 % (36.0-66.0); PLATELET COUNT, AUTOMATED 218 10^3/uL (150-450); RED BLOOD COUNT 4.95 10^6/uL (4.00-5.40); WHITE BLOOD COUNT 5.6 10^3/uL (4.0-10.0)
[2021-01-14 11:20] LABS: ALBUMIN 3.7 GM/DL (3.2-5.2); ALT/SGPT 45 U/L (12-78); BILIRUBIN,TOTAL 0.6 MG/DL (0.2-1.0); BLOOD UREA NITROGEN 12 MG/DL (7-18); CALCIUM LEVEL 9.5 MG/DL (8.5-10.1); CARBON DIOXIDE LEVEL 24 MEQ/L (21-32); CHLORIDE LEVEL 110 MEQ/L (98-107); CREATININE FOR GFR 0.71 MG/DL (0.55-1.30); FERRITIN 123 NG/ML (8-252); FREE T4 1.18 NG/DL (0.76-1.46); GLOMERULAR FILTRATION RATE > 60.0 (>51); GLUCOSE, FASTING 98 MG/DL (70-100); NT-PRO BNP 76 PG/ML (<125); SODIUM LEVEL 142 MEQ/L (136-145); THYROID STIMULATING HORMONE 0.771 uIU/ML (0.358-3.740); TOTAL PROTEIN 6.7 GM/DL (6.4-8.2)
[2021-01-14 12:40] LABS: CORTISOL AM 9.6 UG/DL (4.3-22.4)
[2021-01-14 12:41] LABS: LUTEINIZING HORMONE 33.1 mIU/mL; PROLACTIN 3.1 NG/ML
[2021-01-14 12:42] LABS: FOLLICLE STIMULATING HORMONE 62.5 mIU/mL
[2021-01-18 08:10] LABS: H PYLORI SERUM QUANT IgG ABY 0.36 (0.00-0.79); HUMAN GROWTH HORMONE 0.5 ng/mL (0.0-10.0)
== END ==
LOC: M PLAIMG 08:13
PROVIDERS: ATTEND Family Medicine
DX: M17.0 Bilateral primary osteoarthritis of knee (principal); E23.6 Other disorders of pituitary gland; M96.1 Postlaminectomy syndrome, not elsewhere classified

== ENCOUNTER → 2021-02-14 | Outpatient (CLI) | payer OTHER ==
[~2021-02-14] MED LIST changes: +PROHANCE 279.3MG/ML 5ML VIAL ONE
== END ==
LOC: M PLAIMG 12:33
PROVIDERS: ATTEND Family Medicine
DX: M79.642 Pain in left hand (principal); E23.6 Other disorders of pituitary gland

== ENCOUNTER → 2021-03-04 | Outpatient (CLI) | payer OTHER ==
[~2021-03-04] MED LIST changes: -PROHANCE 279.3MG/ML 5ML VIAL ONE
== END ==
LOC: M PLARAD 12:56
PROVIDERS: ATTEND Family Medicine
DX: M79.642 Pain in left hand (principal)

== ENCOUNTER → 2021-03-10 | Outpatient (CLI) | payer OTHER ==
[2021-03-10 13:27] LABS: HEMOGLOBIN A1c 5.2 %
[2021-03-10 13:47] LABS: ALT/SGPT 40 U/L (12-78); BILIRUBIN,TOTAL 0.5 MG/DL (0.2-1.0); BLOOD UREA NITROGEN 16 MG/DL (7-18); CALCIUM LEVEL 9.5 MG/DL (8.5-10.1); CARBON DIOXIDE LEVEL 27 MEQ/L (21-32); CHLORIDE LEVEL 107 MEQ/L (98-107); CHOLESTEROL LEVEL 230 MG/DL (<200); CHOLESTEROL RISK RATIO 2.839 (<5); CREATININE FOR GFR 0.73 MG/DL (0.55-1.30); FREE T4 1.23 NG/DL (0.76-1.46); GLOMERULAR FILTRATION RATE > 60.0 (>51); GLUCOSE, FASTING 97 MG/DL (70-100); HDL CHOLESTEROL 81 MG/DL (>40); LDL CHOLESTEROL 134 MG/DL (<100); NON-HDL-C 149 MG/DL; NT-PRO BNP 54 PG/ML (<125); POTASSIUM SERUM 4.6 MEQ/L (3.5-5.1); PTH INTACT 43.1 PG/ML (18.5-88.0); SODIUM LEVEL 140 MEQ/L (136-145); THYROID STIMULATING HORMONE 0.653 uIU/ML (0.358-3.740); TOTAL 25(OH) VITAMIN D 36.8 NG/ML (30.0-100.0); TOTAL PROTEIN 6.8 GM/DL (6.4-8.2); TRIGLYCERIDES LEVEL 77 MG/DL (<150)
== END ==
LOC: M PLALAB 12:02
PROVIDERS: ATTEND Family Medicine
DX: E55.9 Vitamin D deficiency, unspecified (principal); R73.01 Impaired fasting glucose; I10 Essential (primary) hypertension; E04.1 Nontoxic single thyroid nodule

== ENCOUNTER → 2021-08-16 | Outpatient (CLI) | payer OTHER ==
[~2021-08-16] MED LIST changes: -D31000TA2 PO; +VITA100093 PO
[2021-08-16 13:57] LABS: BASO % 0.5 % (0.0-1.0); EOS # 0.2 10^3/uL (0.0-0.5); EOS % 2.8 % (0.0-3.0); HEMATOCRIT 42.4 % (36.0-47.0); HEMOGLOBIN 14.1 g/dl (12.0-15.5); LYMPH # 1.6 10^3/uL (1.5-5.0); MEAN CORPUSCULAR HEMOGLOBIN 29.2 pg (27.0-33.0); MEAN CORPUSCULAR HGB CONC 33.3 g/dl (32.0-36.5); MEAN CORPUSCULAR VOLUME 87.8 fl (80.0-96.0); MONO # 0.4 10^3/uL (0.0-0.8); MONO % 7.7 % (2.0-8.0); NEUTROPHILS # 3.5 10^3/uL (1.5-8.5); NEUTROPHILS % 60.8 % (36.0-66.0); PLATELET COUNT, AUTOMATED 197 10^3/uL (150-450); RED BLOOD COUNT 4.83 10^6/uL (4.00-5.40); WHITE BLOOD COUNT 5.7 10^3/uL (4.0-10.0)
[2021-08-16 14:18] LABS: HEMOGLOBIN A1c 5.4 %
[2021-08-16 14:35] LABS: ALBUMIN 3.7 GM/DL (3.2-5.2); ALT/SGPT 41 U/L (12-78); BILIRUBIN,TOTAL 0.4 MG/DL (0.2-1.0); BLOOD UREA NITROGEN 17 MG/DL (7-18); CALCIUM LEVEL 9.7 MG/DL (8.5-10.1); CARBON DIOXIDE LEVEL 26 MEQ/L (21-32); CHLORIDE LEVEL 110 MEQ/L (98-107); CREATININE FOR GFR 0.73 MG/DL (0.55-1.30); FERRITIN 82 NG/ML (8-252); GLOMERULAR FILTRATION RATE > 60.0 (>51); GLUCOSE, FASTING 86 MG/DL (70-100); POTASSIUM SERUM 4.5 MEQ/L (3.5-5.1); SODIUM LEVEL 142 MEQ/L (136-145); TOTAL PROTEIN 6.7 GM/DL (6.4-8.2)
[2021-08-16 14:40] LABS: CREATININE, URINE 75.5 MG/DL; MALB URINE SIEMENS < 5.0 MG/L; MAU/CREAT RATIO 6.6 MCG/MG (0.0-30.0)
[2021-08-16 15:04] LABS: VITAMIN B12 LEVEL 1676 PG/ML (247-911)
== END ==
LOC: M PLALAB 09:12
PROVIDERS: ATTEND Family Medicine
DX: E53.8 Deficiency of other specified B group vitamins (principal); R73.01 Impaired fasting glucose

== ENCOUNTER → 2021-08-18 | Outpatient (CLI) | payer OTHER | LOC: M PLAIMG 15:22 | PROVIDERS: ATTEND Family Medicine | DX: M17.0 Bilateral primary osteoarthritis of knee (principal); M19.042 Primary osteoarthritis, left hand; S60.352A Superficial foreign body of left thumb, initial encounter; X58.XXXA Exposure to other specified factors, initial encounter; Y92.9 Unspecified place or not applicable; Y93.9 Activity, unspecified; Y99.9 Unspecified external cause status ==

== ENCOUNTER → 2021-08-26 | Outpatient (CLI) | payer OTHER ==
[2021-08-26 13:20] LABS: BASO % 0.6 % (0.0-1.0); EOS # 0.1 10^3/uL (0.0-0.5); HEMATOCRIT 45.2 % (36.0-47.0); HEMOGLOBIN 14.9 g/dl (12.0-15.5); LYMPH # 1.7 10^3/uL (1.5-5.0); LYMPH % 25.4 % (24.0-44.0); MEAN CORPUSCULAR HEMOGLOBIN 29.1 pg (27.0-33.0); MEAN CORPUSCULAR VOLUME 88.3 fl (80.0-96.0); MONO # 0.4 10^3/uL (0.0-0.8); MONO % 6.1 % (2.0-8.0); NEUTROPHILS # 4.4 10^3/uL (1.5-8.5); NEUTROPHILS % 66.6 % (36.0-66.0); PLATELET COUNT, AUTOMATED 216 10^3/uL (150-450); RED BLOOD COUNT 5.12 10^6/uL (4.00-5.40); WHITE BLOOD COUNT 6.7 10^3/uL (4.0-10.0)
[2021-08-26 15:28] LABS: ALBUMIN 3.8 GM/DL (3.2-5.2); ALT/SGPT 47 U/L (12-78); BILIRUBIN,TOTAL 0.8 MG/DL (0.2-1.0); BLOOD UREA NITROGEN 12 MG/DL (7-18); CALCIUM LEVEL 9.2 MG/DL (8.5-10.1); CARBON DIOXIDE LEVEL 29 MEQ/L (21-32); CHLORIDE LEVEL 108 MEQ/L (98-107); CREATININE FOR GFR 0.75 MG/DL (0.55-1.30); GLOMERULAR FILTRATION RATE > 60.0 (>51); GLUCOSE, FASTING 88 MG/DL (70-100); LIPASE 70 U/L (73-393); POTASSIUM SERUM 4.5 MEQ/L (3.5-5.1); SODIUM LEVEL 139 MEQ/L (136-145); TOTAL PROTEIN 6.9 GM/DL (6.4-8.2)
== END ==
LOC: M PLALAB 10:16
PROVIDERS: ATTEND Physician Assistant
DX: K57.92 Diverticulitis of intestine, part unspecified, without perforation or abscess without bleeding (principal)

== ENCOUNTER → 2021-09-05 | Outpatient (CLI) | payer OTHER | LOC: M WHC 11:21 | PROVIDERS: ATTEND Family Medicine | DX: E04.1 Nontoxic single thyroid nodule (principal) ==

== ENCOUNTER → 2022-01-18 | Outpatient (CLI) | payer OTHER ==
[2022-01-18 14:04] LABS: BASO % 0.4 % (0.0-1.0); EOS # 0.1 10^3/uL (0.0-0.5); EOS % 1.5 % (0.0-3.0); HEMATOCRIT 45.1 % (36.0-47.0); HEMOGLOBIN 14.5 g/dl (12.0-15.5); LYMPH # 1.6 10^3/uL (1.5-5.0); MEAN CORPUSCULAR HEMOGLOBIN 29.1 pg (27.0-33.0); MEAN CORPUSCULAR HGB CONC 32.2 g/dl (32.0-36.5); MEAN CORPUSCULAR VOLUME 90.4 fl (80.0-96.0); MONO # 0.4 10^3/uL (0.0-0.8); MONO % 5.5 % (2.0-8.0); NEUTROPHILS # 4.6 10^3/uL (1.5-8.5); NEUTROPHILS % 68.5 % (36.0-66.0); PLATELET COUNT, AUTOMATED 217 10^3/uL (150-450); RED BLOOD COUNT 4.99 10^6/uL (4.00-5.40); WHITE BLOOD COUNT 6.7 10^3/uL (4.0-10.0)
[2022-01-18 14:54] LABS: ALBUMIN 3.9 GM/DL (3.2-5.2); ALT/SGPT 37 U/L (12-78); BILIRUBIN,TOTAL 0.6 MG/DL (0.2-1.0); BLOOD UREA NITROGEN 15 MG/DL (7-18); CALCIUM LEVEL 10.1 MG/DL (8.5-10.1); CARBON DIOXIDE LEVEL 26 MEQ/L (21-32); CHLORIDE LEVEL 107 MEQ/L (98-107); CREATININE FOR GFR 0.83 MG/DL (0.55-1.30); FERRITIN 101 NG/ML (8-252); GLOMERULAR FILTRATION RATE > 60.0 (>51); GLUCOSE, FASTING 95 MG/DL (70-100); NT-PRO BNP 111 PG/ML (<125); POTASSIUM SERUM 4.6 MEQ/L (3.5-5.1); SODIUM LEVEL 139 MEQ/L (136-145)
[2022-01-18 15:49] LABS: TOTAL 25(OH) VITAMIN D 33.6 NG/ML (30.0-100.0)
[2022-01-18 15:57] LABS: HEMOGLOBIN A1c 5.3 %
[2022-01-18 16:37] LABS: PTH INTACT 34.6 PG/ML (18.5-88.0)
== END ==
LOC: M PLALAB 11:42
PROVIDERS: ATTEND Family Medicine
DX: E55.9 Vitamin D deficiency, unspecified (principal); I10 Essential (primary) hypertension; R73.01 Impaired fasting glucose

== ENCOUNTER 2022-02-11 07:18 | Emergency (ER) | payer OTHER ==
[~2022-02-11] VITALS: Ht 170.2 cm; Wt 89.3 kg
[2022-02-11] MEDS ORDERED: PANT40TA29 PO (07:43)
[2022-02-11] MEDS ORDERED: ALBU8.5H INH (07:43)
[2022-02-11] MEDS ORDERED: TRAM50TA2 PO (07:43)
[2022-02-11] MEDS ORDERED: FLUTISP NARES (07:43)
[2022-02-11] MEDS ORDERED: NORCO, ANEXSIA 5/325MG TABLET (HYDROcodone/ACETAMINOPHEN) PO ONE (09:45)
[2022-02-11 11:00] VITALS: BP 145/79
== END 2022-02-11 11:19 | disposition home or self-care (01) ==
LOC: M ED 07:18
DX: S43.52XA Sprain of left acromioclavicular joint, initial encounter (principal); M54.50 Low back pain, unspecified; M25.552 Pain in left hip; W00.0XXA Fall on same level due to ice and snow, initial encounter; Y92.009 Unspecified place in unspecified non-institutional (private) residence as the place of occurrence of the external cause; I10 Essential (primary) hypertension; Z88.5 Allergy status to narcotic agent; J30.2 Other seasonal allergic rhinitis; Z79.51 Long term (current) use of inhaled steroids; Z79.899 Other long term (current) drug therapy

== ENCOUNTER 2022-03-20 15:18 | Emergency (ER) | payer OTHER ==
[~2022-03-20] VITALS: Ht 152.4 cm; Wt 86.4 kg
[~2022-03-20 15:18] MED LIST changes: +ALBU8.5H INH; +FLUTISP NARES; +PANT40TA29 PO
[2022-03-20] MEDS ORDERED: fentaNYL 100 MCG/2 ML INJECTION IV ONE (15:50)
[2022-03-20 16:11] LABS: BASO % 0.5 % (0.0-1.0); EOS # 0.1 10^3/uL (0.0-0.5); EOS % 0.6 % (0.0-3.0); HEMATOCRIT 41.2 % (36.0-47.0); HEMOGLOBIN 14.3 g/dl (12.0-15.5); LYMPH # 1.9 10^3/uL (1.5-5.0); LYMPH % 23.7 % (24.0-44.0); MEAN CORPUSCULAR HEMOGLOBIN 29.3 pg (27.0-33.0); MEAN CORPUSCULAR HGB CONC 34.7 g/dl (32.0-36.5); MEAN CORPUSCULAR VOLUME 84.4 fl (80.0-96.0); MONO # 0.5 10^3/uL (0.0-0.8); MONO % 5.6 % (2.0-8.0); NEUTROPHILS # 5.5 10^3/uL (1.5-8.5); NEUTROPHILS % 69.2 % (36.0-66.0); PLATELET COUNT, AUTOMATED 224 10^3/uL (150-450); RED BLOOD COUNT 4.88 10^6/uL (4.00-5.40)
[2022-03-20] MEDS ORDERED: ISOVUE-370 76% 100ML VIAL As Ordered ONE (16:13)
[2022-03-20 16:27] LABS: CK-MB VALUE MASS 1.4 NG/ML (<3.6)
[2022-03-20 16:29] LABS: MB/CK RELATIVE INDEX 0.55 (< OR =4)
[2022-03-20] MEDS ORDERED: POTASSIUM CHLORIDE 10MEQ SR TABLET PO ONE (16:40)
[2022-03-20 20:04] VITALS: BP 143/78
== END 2022-03-20 20:05 | disposition home or self-care (01) ==
LOC: M ED 15:18 → EDBD 15:18 → M ED 20:05
DX: S40.021A Contusion of right upper arm, initial encounter (principal); S30.0XXA Contusion of lower back and pelvis, initial encounter; W10.9XXA Fall (on) (from) unspecified stairs and steps, initial encounter; Y92.019 Unspecified place in single-family (private) house as the place of occurrence of the external cause; I10 Essential (primary) hypertension; E66.9 Obesity, unspecified; Z88.5 Allergy status to narcotic agent; Z79.51 Long term (current) use of inhaled steroids; Z79.899 Other long term (current) drug therapy

== ENCOUNTER → 2022-03-24 | Outpatient (CLI) | payer OTHER | LOC: M WUC 15:43 | PROVIDERS: ATTEND Physician Assistant | DX: R05.9 Cough, unspecified (principal); R91.8 Other nonspecific abnormal finding of lung field ==

== ENCOUNTER → 2022-05-23 | Outpatient (CLI) | payer OTHER ==
[2022-05-23 14:22] LABS: BASO % 0.5 % (0.0-1.0); EOS # 0.1 10^3/uL (0.0-0.5); HEMATOCRIT 42.4 % (36.0-47.0); HEMOGLOBIN 13.7 g/dl (12.0-15.5); LYMPH # 1.4 10^3/uL (1.5-5.0); LYMPH % 24.1 % (24.0-44.0); MEAN CORPUSCULAR HEMOGLOBIN 28.7 pg (27.0-33.0); MEAN CORPUSCULAR HGB CONC 32.3 g/dl (32.0-36.5); MEAN CORPUSCULAR VOLUME 88.7 fl (80.0-96.0); MONO # 0.4 10^3/uL (0.0-0.8); MONO % 6.1 % (2.0-8.0); PLATELET COUNT, AUTOMATED 219 10^3/uL (150-450); RED BLOOD COUNT 4.78 10^6/uL (4.00-5.40); WHITE BLOOD COUNT 5.9 10^3/uL (4.0-10.0)
[2022-05-23 14:30] LABS: ALBUMIN 3.7 G/DL (3.2-5.2); ALKALINE PHOSPHATASE 101 U/L (46-116); ALT/SGPT 39 U/L (7.0-40); AST/SGOT 36 U/L (<34); BILIRUBIN,TOTAL 0.7 MG/DL (0.3-1.2); BLOOD UREA NITROGEN 16 MG/DL (9-23); CALCIUM LEVEL 9.3 MG/DL (8.5-10.1); CARBON DIOXIDE LEVEL 26 MMOL/L (20-31); CHLORIDE LEVEL 106 MMOL/L (98-107); CHOLESTEROL LEVEL 233 MG/DL (<200); CREATININE FOR GFR 0.75 MG/DL (0.55-1.30); GLOMERULAR FILTRATION RATE > 60.0 (>51); GLUCOSE, FASTING 93 MG/DL (60-100); HDL CHOLESTEROL 75.1 MG/DL (>40); LDL CHOLESTEROL 143.1 MG/DL (<100); NON-HDL-C 158 MG/DL; POTASSIUM SERUM 4.6 MMOL/L (3.5-5.1); SODIUM LEVEL 139 MMOL/L (136-145); TOTAL PROTEIN 6.4 G/DL (5.7-8.2); TRIGLYCERIDES LEVEL 74 MG/DL (<150)
[2022-05-23 15:32] LABS: VITAMIN B12 LEVEL 600 PG/ML (211-911)
[2022-05-24 11:08] LABS: APOLIPOPROTEIN B/A-1 RATIO 0.6 ratio (0.0-0.6); H PYLORI SERUM QUANT IgG ABY 0.76 (0.00-0.79)
== END ==
LOC: M PLALAB 09:46
PROVIDERS: ATTEND Family Medicine
DX: I10 Essential (primary) hypertension (principal)

== ENCOUNTER → 2022-05-29 | Outpatient (CLI) | payer OTHER | LOC: M WUC 08:38 | PROVIDERS: ATTEND Family Medicine | DX: M19.079 Primary osteoarthritis, unspecified ankle and foot (principal) ==

== ENCOUNTER → 2022-08-29 | Outpatient (CLI) | payer OTHER ==
[~2022-08-29] MED LIST changes: +FLUT50SP17 NARES; -FLUTISP NARES
== END ==
LOC: M PLAIMG 12:02
PROVIDERS: ATTEND Physician Assistant Medical
DX: M25.511 Pain in right shoulder (principal); M25.512 Pain in left shoulder

== ENCOUNTER → 2022-09-26 | Outpatient (REF) | payer OTHER | LOC: M SFHCPLAZ 10:24 | PROVIDERS: ATTEND Physician Assistant Medical | DX: L98.9 Disorder of the skin and subcutaneous tissue, unspecified (principal) ==

== ENCOUNTER → 2022-09-27 | Outpatient (CLI) | payer OTHER | LOC: M PLAIMG 07:12 | PROVIDERS: ATTEND Physician Assistant Medical | DX: S46.811A Strain of other muscles, fascia and tendons at shoulder and upper arm level, right arm, initial encounter (principal); S46.812A Strain of other muscles, fascia and tendons at shoulder and upper arm level, left arm, initial encounter; M25.411 Effusion, right shoulder; R59.0 Localized enlarged lymph nodes; X58.XXXA Exposure to other specified factors, initial encounter; Y92.9 Unspecified place or not applicable; Y93.9 Activity, unspecified; Y99.9 Unspecified external cause status ==

== ENCOUNTER → 2022-10-19 | Outpatient (CLI) | payer OTHER ==
[2022-10-19 14:41] LABS: BASO % 0.6 % (0.0-1.0); EOS # 0.2 10^3/uL (0.0-0.5); EOS % 2.8 % (0.0-3.0); HEMATOCRIT 45.9 % (36.0-47.0); HEMOGLOBIN 14.8 g/dl (12.0-15.5); LYMPH # 1.7 10^3/uL (1.5-5.0); LYMPH % 24.1 % (24.0-44.0); MEAN CORPUSCULAR HEMOGLOBIN 28.7 pg (27.0-33.0); MEAN CORPUSCULAR HGB CONC 32.2 g/dl (32.0-36.5); MEAN CORPUSCULAR VOLUME 89.1 fl (80.0-96.0); MONO # 0.4 10^3/uL (0.0-0.8); MONO % 5.4 % (2.0-8.0); NEUTROPHILS # 4.6 10^3/uL (1.5-8.5); PLATELET COUNT, AUTOMATED 209 10^3/uL (150-450); RED BLOOD COUNT 5.15 10^6/uL (4.00-5.40); WHITE BLOOD COUNT 6.9 10^3/uL (4.0-10.0)
[2022-10-19 15:05] LABS: HEMOGLOBIN A1c 5.1 % (4.0-6.0)
[2022-10-19 15:12] LABS: ALBUMIN 4.2 G/DL (3.2-5.2); ALKALINE PHOSPHATASE 96 U/L (46-116); ALT/SGPT 23 U/L (7.0-40); AST/SGOT 13 U/L (<34); BILIRUBIN,TOTAL 0.7 MG/DL (0.3-1.2); BLOOD UREA NITROGEN 21 MG/DL (9-23); CALCIUM LEVEL 9.4 MG/DL (8.5-10.1); CARBON DIOXIDE LEVEL 26 MMOL/L (20-31); CHLORIDE LEVEL 106 MMOL/L (98-107); CREATININE FOR GFR 0.77 MG/DL (0.55-1.30); GLOMERULAR FILTRATION RATE > 60.0 (>51); GLUCOSE, FASTING 87 MG/DL (60-100); POTASSIUM SERUM 4.4 MMOL/L (3.5-5.1); PTH INTACT 36.4 PG/ML (18.5-88.0); SODIUM LEVEL 141 MMOL/L (136-145); TOTAL PROTEIN 6.9 G/DL (5.7-8.2)
[2022-10-19 15:16] LABS: FERRITIN 107.9 NG/ML (7.3-270.7)
[2022-10-19 15:17] LABS: TOTAL 25(OH) VITAMIN D 43.6 NG/ML (20.0-100.0)
[2022-10-23 07:07] LABS: D001-IgE D pteronyssinus <0.10 kU/L (Class 0); E001-IgE Cat Epith/Dander < 0.10 kU/L (Class 0); E005-IgE Dog Dander < 0.10 kU/L (Class 0); G002-IgE Bermuda Grass < 0.10 kU/L (Class 0); M001-IgE Penicillium chrysogen < 0.10 kU/L (Class 0); M002 IgE Cladosporium herbaru < 0.10 kU/L (Class 0); M003 IgE Aspergillus fumigatu < 0.10 kU/L (Class 0); M006-IgE Alternaria alternata < 0.10 kU/L (Class 0); T001-IgE Maple/Box Elder < 0.10 kU/L (Class 0); T003-IgE Common Silver Birch < 0.10 kU/L (Class 0); T006-IgE Cedar, Mountain < 0.10 kU/L (Class 0); T007-IgE Oak, White < 0.10 kU/L (Class 0); T008-IgE Elm, American < 0.10 kU/L (Class 0); T015-IgE Ash, White < 0.10 kU/L (Class 0); T070-IgE White Mulberry < 0.10 kU/L (Class 0); W001-IgE Ragweed, Short < 0.10 kU/L (Class 0); W018-IgE Sheep Sorrel < 0.10 kU/L (Class 0)
== END ==
LOC: M PLALAB 10:43
PROVIDERS: ATTEND Family Medicine
DX: E55.9 Vitamin D deficiency, unspecified (principal); I10 Essential (primary) hypertension; J30.9 Allergic rhinitis, unspecified

== ENCOUNTER → 2022-10-23 | Outpatient (REF) | payer OTHER | LOC: M SFHCPLAZ 14:36 | PROVIDERS: ATTEND Family Medicine | DX: Z53.9 Procedure and treatment not carried out, unspecified reason (principal) ==

== ENCOUNTER → 2022-12-05 | Outpatient (CLI) | payer OTHER | LOC: M WHC 07:55 | PROVIDERS: ATTEND Family Medicine | DX: Z12.31 Encounter for screening mammogram for malignant neoplasm of breast (principal) ==

== ENCOUNTER → 2023-02-27 | Outpatient (CLI) | payer OTHER ==
[~2023-02-27] MED LIST changes: -FLUT50SP17 NARES; +FLUTISP NARES
[2023-02-27 14:39] LABS: BASO % 0.5 % (0.0-1.0); EOS # 0.1 10^3/uL (0.0-0.5); EOS % 1.5 % (0.0-3.0); HEMATOCRIT 44.1 % (36.0-47.0); HEMOGLOBIN 14.3 g/dl (12.0-15.5); LYMPH # 1.6 10^3/uL (1.5-5.0); LYMPH % 25.3 % (24.0-44.0); MEAN CORPUSCULAR HEMOGLOBIN 28.5 pg (27.0-33.0); MEAN CORPUSCULAR HGB CONC 32.4 g/dl (32.0-36.5); MEAN CORPUSCULAR VOLUME 87.8 fl (80.0-96.0); MONO # 0.4 10^3/uL (0.0-0.8); MONO % 6.3 % (2.0-8.0); NEUTROPHILS # 4.3 10^3/uL (1.5-8.5); NEUTROPHILS % 66.1 % (36.0-66.0); PLATELET COUNT, AUTOMATED 231 10^3/uL (150-450); RED BLOOD COUNT 5.02 10^6/uL (4.00-5.40); WHITE BLOOD COUNT 6.5 10^3/uL (4.0-10.0)
[2023-02-27 15:25] LABS: ALBUMIN 3.7 G/DL (3.2-5.2); ALKALINE PHOSPHATASE 125 U/L (46-116); ALT/SGPT 32 U/L (7.0-40); AST/SGOT 17 U/L (<34); BILIRUBIN,TOTAL 0.6 MG/DL (0.3-1.2); BLOOD UREA NITROGEN 14 MG/DL (9-23); CALCIUM LEVEL 9.6 MG/DL (8.5-10.1); CARBON DIOXIDE LEVEL 27 MMOL/L (20-31); CHLORIDE LEVEL 105 MMOL/L (98-107); CHOLESTEROL LEVEL 239 MG/DL (<200); CHOLESTEROL RISK RATIO 3.11 (<5); CREATININE FOR GFR 0.69 MG/DL (0.55-1.30); FERRITIN 134.8 NG/ML (7.3-270.7); GLOMERULAR FILTRATION RATE > 60.0 (>51); GLUCOSE, FASTING 94 MG/DL (60-100); HDL CHOLESTEROL 76.8 MG/DL (>40); LDL CHOLESTEROL 143.8 MG/DL (<100); NON-HDL-C 162.2 MG/DL; POTASSIUM SERUM 4.4 MMOL/L (3.5-5.1); SODIUM LEVEL 140 MMOL/L (136-145); TOTAL PROTEIN 6.7 G/DL (5.7-8.2); TRIGLYCERIDES LEVEL 92 MG/DL (<150); VITAMIN B12 LEVEL 722 PG/ML (211-911)
== END ==
LOC: M PLALAB 11:09
PROVIDERS: ATTEND Family Medicine
DX: E53.8 Deficiency of other specified B group vitamins (principal); I10 Essential (primary) hypertension

== ENCOUNTER → 2023-03-01 | Outpatient (REF) | payer OTHER | LOC: M SFHCPLAZ 15:15 | PROVIDERS: ATTEND Family Medicine | DX: Z53.9 Procedure and treatment not carried out, unspecified reason (principal) ==

== ENCOUNTER → 2023-07-31 | Outpatient (CLI) | payer OTHER ==
[2023-07-31 12:17] LABS: ALBUMIN 3.6 G/DL (3.2-5.2); ALKALINE PHOSPHATASE 124 U/L (46-116); ALT/SGPT 38 U/L (7.0-40); AST/SGOT 22 U/L (<34); BASO % 0.6 % (0.0-1.0); BILIRUBIN,TOTAL 0.8 MG/DL (0.3-1.2); BLOOD UREA NITROGEN 17 MG/DL (9-23); CALCIUM LEVEL 9.3 MG/DL (8.5-10.1); CARBON DIOXIDE LEVEL 26 MMOL/L (20-31); CHLORIDE LEVEL 109 MMOL/L (98-107); CHOLESTEROL LEVEL 220 MG/DL (<200); CREATININE FOR GFR 0.79 MG/DL (0.55-1.30); EOS # 0.1 10^3/uL (0.0-0.5); EOS % 1.8 % (0.0-3.0); GLOMERULAR FILTRATION RATE > 60.0 (>51); GLUCOSE, FASTING 96 MG/DL (60-100); HDL CHOLESTEROL 73.1 MG/DL (>40); HEMATOCRIT 42.6 % (36.0-47.0); HEMOGLOBIN 13.9 g/dl (12.0-15.5); LDL CHOLESTEROL 132.9 MG/DL (<100); LYMPH # 1.3 10^3/uL (1.5-5.0); LYMPH % 24.3 % (24.0-44.0); MAGNESIUM LEVEL 1.9 MG/DL (1.8-2.4); MEAN CORPUSCULAR HEMOGLOBIN 28.8 pg (27.0-33.0); MEAN CORPUSCULAR HGB CONC 32.6 g/dl (32.0-36.5); MEAN CORPUSCULAR VOLUME 88.2 fl (80.0-96.0); MONO # 0.4 10^3/uL (0.0-0.8); MONO % 7.2 % (2.0-8.0); NEUTROPHILS # 3.4 10^3/uL (1.5-8.5); NEUTROPHILS % 65.7 % (36.0-66.0); NON-HDL-C 146.9 MG/DL; PLATELET COUNT, AUTOMATED 205 10^3/uL (150-450); POTASSIUM SERUM 4.7 MMOL/L (3.5-5.1); RED BLOOD COUNT 4.83 10^6/uL (4.00-5.40); SODIUM LEVEL 143 MMOL/L (136-145); TOTAL PROTEIN 6.4 G/DL (5.7-8.2); TRIGLYCERIDES LEVEL 70 MG/DL (<150); WHITE BLOOD COUNT 5.1 10^3/uL (4.0-10.0)
== END ==
LOC: M PLALAB 08:39
PROVIDERS: ATTEND Family Medicine
DX: I10 Essential (primary) hypertension (principal)

== ENCOUNTER → 2023-08-02 | Outpatient (CLI) | payer OTHER | LOC: M PLAIMG 13:55 | PROVIDERS: ATTEND Family Medicine | DX: M96.1 Postlaminectomy syndrome, not elsewhere classified (principal) ==

== ENCOUNTER → 2023-08-02 | Outpatient (REF) | payer OTHER | LOC: M SFHCPLAZ 13:55 | PROVIDERS: ATTEND Family Medicine | DX: Z53.9 Procedure and treatment not carried out, unspecified reason (principal) ==

== ENCOUNTER → 2023-08-03 | Outpatient (REF) | payer OTHER | LOC: M SFHCPLAZ 10:10 | PROVIDERS: ATTEND Family Medicine | DX: I10 Essential (primary) hypertension (principal); E55.9 Vitamin D deficiency, unspecified; E53.8 Deficiency of other specified B group vitamins; Z53.8 Procedure and treatment not carried out for other reasons ==

== ENCOUNTER → 2023-08-23 | Outpatient (CLI) | payer OTHER ==
[~2023-08-23] MED LIST changes: +ONDA-282 PO; -ONDA4TAB6 PO
== END ==
LOC: M WUC 09:04
PROVIDERS: ATTEND Student in an Organized Health Care Education/Training Program
DX: M25.521 Pain in right elbow (principal); M79.641 Pain in right hand; M25.531 Pain in right wrist; M79.89 Other specified soft tissue disorders; Z87.81 Personal history of (healed) traumatic fracture

== ENCOUNTER → 2023-08-30 | Outpatient (CLI) | payer OTHER | LOC: M WHC 11:28 | PROVIDERS: ATTEND Family Medicine | DX: E04.1 Nontoxic single thyroid nodule (principal) ==

== ENCOUNTER → 2023-09-06 | Outpatient (CLI) | payer OTHER | LOC: M PLARAD 13:12 | PROVIDERS: ATTEND Physician Assistant | DX: M25.561 Pain in right knee (principal) ==

== ENCOUNTER 2023-09-11 07:05 | Emergency (ER) | payer OTHER ==
[~2023-09-11] VITALS: Ht 172.7 cm; Wt 88.1 kg
[2023-09-11] MEDS ORDERED: LORA-1041 (07:14)
[2023-09-11 08:01] LABS: BASO % 0.4 % (0.0-1.0); EOS # 0.1 10^3/uL (0.0-0.5); EOS % 1.9 % (0.0-3.0); HEMOGLOBIN 14.4 g/dl (12.0-15.5); LYMPH # 0.9 10^3/uL (1.5-5.0); LYMPH % 17.9 % (24.0-44.0); MEAN CORPUSCULAR HEMOGLOBIN 28.4 pg (27.0-33.0); MEAN CORPUSCULAR HGB CONC 32.7 g/dl (32.0-36.5); MEAN CORPUSCULAR VOLUME 86.8 fl (80.0-96.0); MONO # 0.5 10^3/uL (0.0-0.8); MONO % 10.1 % (2.0-8.0); NEUTROPHILS # 3.6 10^3/uL (1.5-8.5); NEUTROPHILS % 69.5 % (36.0-66.0); PLATELET COUNT, AUTOMATED 183 10^3/uL (150-450); RED BLOOD COUNT 5.07 10^6/uL (4.00-5.40); WHITE BLOOD COUNT 5.2 10^3/uL (4.0-10.0)
[2023-09-11] MEDS ORDERED: ISOVUE-370 76% 100ML VIAL As Ordered ONE (08:01)
[2023-09-11] MEDS: NS 1,000 ML IV ONE (08:01)
[2023-09-11] MEDS: HYDROMORPHONE HCL 0.5 MG/ 0.5 ML SYRINGE IV ONE (08:02)
[2023-09-11] MEDS: ONDANSETRON 4MG 2ML VIAL IV ONE (08:02)
[2023-09-11 08:26] LABS: ALBUMIN 3.6 G/DL (3.2-5.2); BILIRUBIN,DIRECT 0.2 MG/DL (<0.4); TOTAL PROTEIN 6.4 G/DL (5.7-8.2)
[2023-09-11] MEDS: PIPERACILLIN/TAZOBACTAM SOD 3.375 GM in D5W MINI-BAG PLUS 50 ML IV ONE (09:53)
[2023-09-11] MEDS: KETOROLAC 30 MG/ML 1ML VIAL IV ONE (09:53)
[2023-09-11] MEDS ORDERED: ONDA-282 PO (12:20)
[2023-09-11] MEDS ORDERED: AMOX875T2 PO (12:20)
[2023-09-11] MEDS ORDERED: HYDR-3713 PO (12:20)
[2023-09-11 12:33] VITALS: BP 126/61; TEMP 98.6; O2SAT 98
== END 2023-09-11 12:42 | disposition home or self-care (01) ==
LOC: M ED 07:05
DX: K57.92 Diverticulitis of intestine, part unspecified, without perforation or abscess without bleeding (principal); I10 Essential (primary) hypertension; Z88.5 Allergy status to narcotic agent; Z91.09 Other allergy status, other than to drugs and biological substances; Z79.1 Long term (current) use of non-steroidal anti-inflammatories (NSAID); Z79.51 Long term (current) use of inhaled steroids; Z79.2 Long term (current) use of antibiotics; Z79.899 Other long term (current) drug therapy
CPT/HCPCS: 74177; 80047; 80076; 81001; 83690; 85025; 87086; 96361; 96365; 96374; 96375; 99284; J1170; J1885; J2405; J2543; Q9967

== ENCOUNTER → 2023-11-15 | Outpatient (CLI) | payer OTHER ==
[~2023-11-15] MED LIST changes: +AMOX875T2 PO; +LORA-1041
[2023-11-15 13:09] LABS: BASO % 0.4 % (0.0-1.0); EOS # 0.1 10^3/uL (0.0-0.5); EOS % 1.2 % (0.0-3.0); HEMATOCRIT 42.4 % (36.0-47.0); HEMOGLOBIN 13.8 g/dl (12.0-15.5); LYMPH # 1.3 10^3/uL (1.5-5.0); LYMPH % 15.2 % (24.0-44.0); MEAN CORPUSCULAR HEMOGLOBIN 29.1 pg (27.0-33.0); MEAN CORPUSCULAR HGB CONC 32.5 g/dl (32.0-36.5); MEAN CORPUSCULAR VOLUME 89.3 fl (80.0-96.0); MONO # 0.5 10^3/uL (0.0-0.8); MONO % 6.1 % (2.0-8.0); NEUTROPHILS # 6.5 10^3/uL (1.5-8.5); NEUTROPHILS % 76.7 % (36.0-66.0); PLATELET COUNT, AUTOMATED 173 10^3/uL (150-450); RED BLOOD COUNT 4.75 10^6/uL (4.00-5.40); WHITE BLOOD COUNT 8.5 10^3/uL (4.0-10.0)
[2023-11-15 13:40] LABS: ALBUMIN 3.4 G/DL (3.2-5.2); ALKALINE PHOSPHATASE 107 U/L (46-116); ALT/SGPT 29 U/L (7.0-40); AST/SGOT 14 U/L (<34); BILIRUBIN,TOTAL 0.5 MG/DL (0.3-1.2); BLOOD UREA NITROGEN 17 MG/DL (9-23); CALCIUM LEVEL 9.4 MG/DL (8.5-10.1); CARBON DIOXIDE LEVEL 27 MMOL/L (20-31); CHLORIDE LEVEL 110 MMOL/L (98-107); CREATININE FOR GFR 0.71 MG/DL (0.55-1.30); FREE T4 1.25 NG/DL (0.89-1.76); GLOMERULAR FILTRATION RATE > 60.0 (>51); GLUCOSE, FASTING 74 MG/DL (60-100); POTASSIUM SERUM 4.7 MMOL/L (3.5-5.1); SODIUM LEVEL 142 MMOL/L (136-145); THYROID STIMULATING HORMONE 0.635 uIU/ML (0.55-4.78); TOTAL PROTEIN 6.2 G/DL (5.7-8.2)
== END ==
LOC: M PLALAB 09:11
PROVIDERS: ATTEND Family Medicine
DX: K57.32 Diverticulitis of large intestine without perforation or abscess without bleeding (principal)

== ENCOUNTER → 2024-01-01 | Outpatient (CLI) | payer OTHER ==
[2024-01-01 13:46] LABS: BASO % 0.7 % (0.0-1.0); EOS # 0.1 10^3/uL (0.0-0.5); EOS % 1.7 % (0.0-3.0); HEMATOCRIT 41.5 % (36.0-47.0); HEMOGLOBIN 13.6 g/dl (12.0-15.5); LYMPH # 1.5 10^3/uL (1.5-5.0); LYMPH % 24.9 % (24.0-44.0); MEAN CORPUSCULAR HEMOGLOBIN 29.4 pg (27.0-33.0); MEAN CORPUSCULAR HGB CONC 32.8 g/dl (32.0-36.5); MEAN CORPUSCULAR VOLUME 89.8 fl (80.0-96.0); MONO # 0.3 10^3/uL (0.0-0.8); MONO % 5.6 % (2.0-8.0); NEUTROPHILS # 4.1 10^3/uL (1.5-8.5); NEUTROPHILS % 66.8 % (36.0-66.0); PLATELET COUNT, AUTOMATED 223 10^3/uL (150-450); RED BLOOD COUNT 4.62 10^6/uL (4.00-5.40); WHITE BLOOD COUNT 6.1 10^3/uL (4.0-10.0)
[2024-01-01 14:11] LABS: ALKALINE PHOSPHATASE 102 U/L (46-116); ALT/SGPT 29 U/L (7.0-40); AST/SGOT 18 U/L (<34); BILIRUBIN,TOTAL 0.7 MG/DL (0.3-1.2); BLOOD UREA NITROGEN 15 MG/DL (9-23); CALCIUM LEVEL 9.5 MG/DL (8.5-10.1); CARBON DIOXIDE LEVEL 25 MMOL/L (20-31); CHLORIDE LEVEL 110 MMOL/L (98-107); CHOLESTEROL LEVEL 224 MG/DL (<200); CHOLESTEROL RISK RATIO 2.81 (<5); CREATININE FOR GFR 0.72 MG/DL (0.55-1.30); FERRITIN 137.7 NG/ML (7.3-270.7); GLOMERULAR FILTRATION RATE > 60.0 (>51); GLUCOSE, FASTING 88 MG/DL (60-100); HDL CHOLESTEROL 79.6 MG/DL (>40); LDL CHOLESTEROL 133.8 MG/DL (<100); NON-HDL-C 144.4 MG/DL; POTASSIUM SERUM 4.1 MMOL/L (3.5-5.1); PTH INTACT 39.9 PG/ML (18.5-88.0); SODIUM LEVEL 141 MMOL/L (136-145); TOTAL 25(OH) VITAMIN D 60.6 NG/ML (20.0-100.0); TOTAL PROTEIN 6.6 G/DL (5.7-8.2); TRIGLYCERIDES LEVEL 53 MG/DL (<150)
== END ==
LOC: M PLALAB 10:04
PROVIDERS: ATTEND Family Medicine
DX: I10 Essential (primary) hypertension (principal); E55.9 Vitamin D deficiency, unspecified; E53.8 Deficiency of other specified B group vitamins

== ENCOUNTER → 2024-01-24 | Outpatient (CLI) | payer OTHER | LOC: M PLAIMG 06:53 | PROVIDERS: ATTEND Family Medicine | DX: S46.812A Strain of other muscles, fascia and tendons at shoulder and upper arm level, left arm, initial encounter (principal); M75.52 Bursitis of left shoulder; M75.42 Impingement syndrome of left shoulder; M67.814 Other specified disorders of tendon, left shoulder; Y93.9 Activity, unspecified; Y92.9 Unspecified place or not applicable ==

== ENCOUNTER → 2024-05-06 | Outpatient (CLI) | payer OTHER ==
[2024-05-06 15:04] LABS: BASO % 0.5 % (0.0-1.0); EOS # 0.2 10^3/uL (0.0-0.5); EOS % 2.4 % (0.0-3.0); HEMATOCRIT 43.4 % (36.0-47.0); HEMOGLOBIN 14.2 g/dl (12.0-15.5); LYMPH # 1.9 10^3/uL (1.5-5.0); LYMPH % 24.4 % (24.0-44.0); MEAN CORPUSCULAR HEMOGLOBIN 28.6 pg (27.0-33.0); MEAN CORPUSCULAR HGB CONC 32.7 g/dl (32.0-36.5); MEAN CORPUSCULAR VOLUME 87.5 fl (80.0-96.0); MONO # 0.5 10^3/uL (0.0-0.8); MONO % 6.2 % (2.0-8.0); NEUTROPHILS % 66.1 % (36.0-66.0); PLATELET COUNT, AUTOMATED 233 10^3/uL (150-450); RED BLOOD COUNT 4.96 10^6/uL (4.00-5.40); WHITE BLOOD COUNT 7.6 10^3/uL (4.0-10.0)
[2024-05-06 15:22] LABS: ALBUMIN 3.8 G/DL (3.2-5.2); ALKALINE PHOSPHATASE 110 U/L (35-104); ALT/SGPT 35 U/L (7.0-40); AST/SGOT 20 U/L (<34); BILIRUBIN,TOTAL 0.4 MG/DL (0.3-1.2); BLOOD UREA NITROGEN 21 MG/DL (9-23); CALCIUM LEVEL 9.7 MG/DL (8.3-10.6); CARBON DIOXIDE LEVEL 26 MMOL/L (20-31); CHLORIDE LEVEL 110 MMOL/L (98-107); CREATININE FOR GFR 0.92 MG/DL (0.55-1.30); GLOMERULAR FILTRATION RATE > 60.0 (>45); GLUCOSE, FASTING 89 MG/DL (74-106); POTASSIUM SERUM 4.4 MMOL/L (3.5-5.1); SODIUM LEVEL 145 MMOL/L (136-145); TOTAL PROTEIN 6.8 G/DL (5.7-8.2)
== END ==
LOC: M PLALAB 13:57
DX: G89.4 Chronic pain syndrome (principal)

== ENCOUNTER → 2024-05-06 | Outpatient (REF) | payer OTHER | LOC: M SFHCPLAZ 13:50 | DX: Z53.9 Procedure and treatment not carried out, unspecified reason (principal) ==

== ENCOUNTER → 2024-05-09 | Outpatient (CLI) | payer OTHER ==
[2024-05-09 13:57] LABS: APPEARANCE, URINE HAZY (CLEAR); BACTERIA, URINE AUTO NEGATIVE (NEGATIVE); BILIRUBIN, URINE AUTO NEGATIVE (NEGATIVE); BLOOD, URINE BLOOD 1+ (NEGATIVE); COLOR, URINE YELLOW (YELLOW); GLUCOSE, URINE (UA) AUTO NEGATIVE (NEGATIVE); KETONE, URINE AUTO NEGATIVE (NEGATIVE); LEUKOCYTE ESTERASE, URINE AUTO NEGATIVE (NEGATIVE); MUCUS, URINE SMALL (NEGATIVE); NITRITE, URINE AUTO NEGATIVE (NEGATIVE); PROTEIN, URINE AUTO NEGATIVE (NEGATIVE); RBC, URINE AUTO 1 /HPF (0-3); SPECIFIC GRAVITY URINE AUTO 1.015 (1.002-1.035); SQUAMOUS EPITHELIAL CELL UR AU 0 /HPF (0-6); UROBILINOGEN, URINE AUTO 0.2 mg/dL (0.0-2.0); WBC, URINE AUTO 0 /HPF (0-3)
[2024-05-09 14:08] LABS: BASO % 0.6 % (0.0-1.0); EOS # 0.1 10^3/uL (0.0-0.5); HEMATOCRIT 45.2 % (36.0-47.0); HEMOGLOBIN 14.7 g/dl (12.0-15.5); LYMPH # 1.5 10^3/uL (1.5-5.0); LYMPH % 21.2 % (24.0-44.0); MEAN CORPUSCULAR HEMOGLOBIN 28.8 pg (27.0-33.0); MEAN CORPUSCULAR HGB CONC 32.5 g/dl (32.0-36.5); MEAN CORPUSCULAR VOLUME 88.5 fl (80.0-96.0); MONO # 0.5 10^3/uL (0.0-0.8); MONO % 6.8 % (2.0-8.0); NEUTROPHILS # 4.9 10^3/uL (1.5-8.5); PLATELET COUNT, AUTOMATED 218 10^3/uL (150-450); RED BLOOD COUNT 5.11 10^6/uL (4.00-5.40); WHITE BLOOD COUNT 7.1 10^3/uL (4.0-10.0)
[2024-05-09 14:13] LABS: ALBUMIN 4.1 G/DL (3.2-5.2); ALKALINE PHOSPHATASE 104 U/L (35-104); ALT/SGPT 45 U/L (7.0-40); AST/SGOT 31 U/L (<34); BILIRUBIN,TOTAL 0.8 MG/DL (0.3-1.2); BLOOD UREA NITROGEN 19 MG/DL (9-23); CALCIUM LEVEL 9.9 MG/DL (8.3-10.6); CARBON DIOXIDE LEVEL 27 MMOL/L (20-31); CHLORIDE LEVEL 108 MMOL/L (98-107); CREATININE FOR GFR 0.71 MG/DL (0.55-1.30); GLOMERULAR FILTRATION RATE > 60.0 (>45); GLUCOSE, FASTING 95 MG/DL (74-106); POTASSIUM SERUM 4.7 MMOL/L (3.5-5.1); SODIUM LEVEL 141 MMOL/L (136-145); TOTAL PROTEIN 7.1 G/DL (5.7-8.2)
== END ==
LOC: M PLALAB 11:24
DX: R39.9 Unspecified symptoms and signs involving the genitourinary system (principal); M54.9 Dorsalgia, unspecified; M85.88 Other specified disorders of bone density and structure, other site; M47.814 Spondylosis without myelopathy or radiculopathy, thoracic region

== ENCOUNTER → 2024-05-30 | Outpatient (CLI) | payer OTHER ==
[2024-05-30 14:05] LABS: BASO # 0.1 10^3/uL (0.0-0.2); BASO % 0.6 % (0.0-1.0); EOS # 0.2 10^3/uL (0.0-0.5); EOS % 1.9 % (0.0-3.0); HEMOGLOBIN 14.2 g/dl (12.0-15.5); LYMPH # 1.6 10^3/uL (1.5-5.0); MEAN CORPUSCULAR HEMOGLOBIN 29.2 pg (27.0-33.0); MEAN CORPUSCULAR VOLUME 88.3 fl (80.0-96.0); MONO # 0.5 10^3/uL (0.0-0.8); MONO % 6.2 % (2.0-8.0); NEUTROPHILS # 5.7 10^3/uL (1.5-8.5); NEUTROPHILS % 70.9 % (36.0-66.0); PLATELET COUNT, AUTOMATED 209 10^3/uL (150-450); RED BLOOD COUNT 4.87 10^6/uL (4.00-5.40); WHITE BLOOD COUNT 8.1 10^3/uL (4.0-10.0)
[2024-05-30 14:06] LABS: ALBUMIN 3.8 G/DL (3.2-5.2); ALKALINE PHOSPHATASE 94 U/L (35-104); ALT/SGPT 39 U/L (7.0-40); AST/SGOT 27 U/L (<34); BILIRUBIN,TOTAL 0.7 MG/DL (0.3-1.2); BLOOD UREA NITROGEN 18 MG/DL (9-23); CALCIUM LEVEL 9.3 MG/DL (8.3-10.6); CARBON DIOXIDE LEVEL 27 MMOL/L (20-31); CHLORIDE LEVEL 107 MMOL/L (98-107); CHOLESTEROL LEVEL 228 MG/DL (<200); CHOLESTEROL RISK RATIO 2.64 (<5); CREATININE FOR GFR 0.71 MG/DL (0.55-1.30); GLOMERULAR FILTRATION RATE > 60.0 (>45); GLUCOSE, FASTING 92 MG/DL (74-106); HDL CHOLESTEROL 86.2 MG/DL (>40); LDL CHOLESTEROL 129.4 MG/DL (<100); NON-HDL-C 141.8 MG/DL; POTASSIUM SERUM 4.7 MMOL/L (3.5-5.1); PTH INTACT 32.9 PG/ML (18.5-88.0); SODIUM LEVEL 142 MMOL/L (136-145); TOTAL PROTEIN 6.6 G/DL (5.7-8.2); TRIGLYCERIDES LEVEL 62 MG/DL (<150)
[2024-05-30 14:08] LABS: FERRITIN 97.4 NG/ML (7.3-270.7); TOTAL 25(OH) VITAMIN D 51.7 NG/ML (20.0-100.0)
== END ==
LOC: M PLALAB 10:40
PROVIDERS: ATTEND Family Medicine
DX: I10 Essential (primary) hypertension (principal)

== ENCOUNTER → 2024-06-03 | Outpatient (CLI) | payer OTHER | LOC: M PLAIMG 11:39 | PROVIDERS: ATTEND Family Medicine | DX: M16.0 Bilateral primary osteoarthritis of hip (principal) ==

== ENCOUNTER → 2024-10-31 | Outpatient (CLI) | payer OTHER ==
[~2024-10-31] MED LIST changes: +TOPI-256; -TOPI25TA10
[2024-10-31 10:07] LABS: BASO # 0.0 10^3/uL (0.0-0.2); BASO % 0.5 % (0.0-1.0); EOS # 0.2 10^3/uL (0.0-0.5); EOS % 3.1 % (0.0-3.0); LYMPH # 1.7 10^3/uL (1.5-5.0); LYMPH % 28.5 % (24.0-44.0); MONO # 0.4 10^3/uL (0.0-0.8); MONO % 6.8 % (2.0-8.0); NEUTROPHILS # 3.7 10^3/uL (1.5-8.5); NEUTROPHILS % 60.9 % (36.0-66.0); PLATELET COUNT, AUTOMATED 205 10^3/uL (150-450)
[2024-10-31 10:19] LABS: ALT/SGPT 25 U/L (7.0-40); AST/SGOT 20 U/L (<34); CALCIUM LEVEL 9.3 MG/DL (8.3-10.6); CARBON DIOXIDE LEVEL 27 MMOL/L (20-31); CHLORIDE LEVEL 105 MMOL/L (98-107); CREATININE FOR GFR 0.75 MG/DL (0.55-1.30); GLOMERULAR FILTRATION RATE > 90.0 (>45); POTASSIUM SERUM 4.6 MMOL/L (3.5-5.1); SODIUM LEVEL 143 MMOL/L (136-145)
[2024-10-31 10:22] LABS: ESTIMATED AVERAGE GLUCOSE 105.0 MG/DL (60-110)
[2024-10-31 10:33] LABS: FREE T4 1.27 NG/DL (0.89-1.76)
[2024-10-31 10:34] LABS: VITAMIN B12 LEVEL 586 PG/ML (211-911)
[2024-10-31 10:40] LABS: CREATININE, URINE 27.0 MG/DL; MALB URINE SIEMENS < 3.0 MG/L
== END ==
LOC: M PLALAB 07:34
PROVIDERS: ATTEND Family Medicine
DX: I10 Essential (primary) hypertension (principal); E53.8 Deficiency of other specified B group vitamins; R73.01 Impaired fasting glucose; E04.1 Nontoxic single thyroid nodule

== ENCOUNTER → 2024-11-03 | Outpatient (CLI) | payer OTHER | LOC: M WHC 12:23 | PROVIDERS: ATTEND Family Medicine | DX: Z12.31 Encounter for screening mammogram for malignant neoplasm of breast (principal); R92.313 Mammographic fatty tissue density, bilateral breasts ==

== ENCOUNTER → 2024-12-01 | Outpatient (CLI) | payer OTHER | LOC: M WHC 13:03 | PROVIDERS: ATTEND Family Medicine | DX: M81.0 Age-related osteoporosis without current pathological fracture (principal) ==

== ENCOUNTER → 2025-02-25 | Outpatient (CLI) | payer OTHER ==
[2025-02-25 13:23] LABS: APPEARANCE, URINE CLEAR (CLEAR); BACTERIA, URINE AUTO NEGATIVE (NEGATIVE); BILIRUBIN, URINE AUTO NEGATIVE (NEGATIVE); BLOOD, URINE BLOOD NEGATIVE (NEGATIVE); GLUCOSE, URINE (UA) AUTO NEGATIVE (NEGATIVE); KETONE, URINE AUTO NEGATIVE (NEGATIVE); LEUKOCYTE ESTERASE, URINE AUTO NEGATIVE (NEGATIVE); MUCUS, URINE SMALL (NEGATIVE); NITRITE, URINE AUTO NEGATIVE (NEGATIVE); PROTEIN, URINE AUTO NEGATIVE (NEGATIVE); RBC, URINE AUTO 1 /HPF (0-3); SPECIFIC GRAVITY URINE AUTO 1.020 (1.002-1.035); SQUAMOUS EPITHELIAL CELL UR AU 0 /HPF (0-6); UROBILINOGEN, URINE AUTO 0.2 mg/dL (0.0-2.0); WBC, URINE AUTO 0 /HPF (0-3)
[2025-02-25 13:45] LABS: BASO # 0.0 10^3/uL (0.0-0.2); BASO % 0.7 % (0.0-1.0); EOS # 0.1 10^3/uL (0.0-0.5); EOS % 1.7 % (0.0-3.0); LYMPH # 1.4 10^3/uL (1.5-5.0); LYMPH % 22.5 % (24.0-44.0); MONO # 0.4 10^3/uL (0.0-0.8); MONO % 7.3 % (2.0-8.0); NEUTROPHILS # 4.1 10^3/uL (1.5-8.5); NEUTROPHILS % 67.6 % (36.0-66.0); PLATELET COUNT, AUTOMATED 245 10^3/uL (150-450)
[2025-02-25 13:48] LABS: ALT/SGPT 21.0 U/L (7.0-40); AST/SGOT 17.0 U/L (<34); CALCIUM LEVEL 9.3 MG/DL (8.3-10.6); CARBON DIOXIDE LEVEL 27.0 MMOL/L (20-31); CHLORIDE LEVEL 104.0 MMOL/L (98-107); CREATININE FOR GFR 0.86 MG/DL (0.55-1.30); GLOMERULAR FILTRATION RATE 76.8 (>45); POTASSIUM SERUM 4.9 MMOL/L (3.5-5.1); SODIUM LEVEL 141.0 MMOL/L (136-145)
== END ==
LOC: M PLALAB 06:52
PROVIDERS: ATTEND Orthopaedic Surgery
DX: M75.52 Bursitis of left shoulder (principal)